=== PATIENT | female | born 1985 | race Caucasian/White ===

== ENCOUNTER 2023-04-30 16:28 | Emergency (ER) | payer BC, SELFPAY ==
[2023-04-30 16:50] VITALS: BP 144/89; PULSE 79; RESP 18; TEMP 36.8; O2SAT 100
--- NOTE | 2023-04-30 17:00 | ED.SKABFB ---
HPI - Skin/Abscess/Foreign Bdy General Chief complaint: Animal Bite Stated complaint: animal bite Source: patient and RN notes reviewed History of Present Illness HPI narrative: 37 yr old F presents to urgent care with cat bites to her right FA. Pt states she has been feeding a stray cat for about a year now and just recently has allowed her to pet it. Pt states she was petting it on Sunday morning when the cat bit her. Pt presents with 2 superficial puncture wounds to right FA and another puncture wound that is surrounded with erythema to her right FA. Pt reports some tightness to her distal FA. Denies any fevers, chills, vomiting, chest pain, SOB, or drainage from the site. Pt is UTD on her tetanus. Pt has been putting Neosporin on the site at nighttime. Related Data Home Medications Medication Instructions Recorded Confirmed clonazepam 0.5 mg tablet 0.5 mg BID 06/18/19 04/30/23 rizatriptan 5 mg tablet 5 mg PO PRN PRN Migraine Headache 06/18/19 04/30/23 Allergies Allergy/AdvReac Type Severity Reaction Status Date / Time amoxicillin [From Augmentin] Allergy Rash Verified 04/30/23 16:55 clavulanic acid Allergy Rash Verified 04/30/23 16:55 [From Augmentin] Review of Systems Review of Systems: CONSTITUTIONAL: Denies fever, chills, or sweats. EYES: Denies visual changes, redness, or discharge. ENT: Denies otalgia and sore throat CARDIOVASCULAR: Denies chest pain, palpitations, or edema. RESPIRATORY: Denies cough or dyspnea. GASTROINTESTINAL: Denies abdominal pain, nausea, vomiting, or diarrhea. GENITOURINARY: Denies dysuria or hematuria. SKIN: Cat bites to right forearm MUSCULOSKELETAL: Denies back pain, joint pain, or myalgia. NEUROLOGIC: Denies headache, numbness, or weakness. Pertinent positives per HPI. PMFSH Social History Social History Gender identity (if verbalized by the patient): Female Comments At the time of my signature, I reviewed and agree with the nursing past medical, surgical, social, and family history. There is no relevant family history pertinent to the patient complaint. Exam Narrative: GENERAL: This is a well-nourished, well-developed patient, in no apparent distress. HEAD: normocephalic, atraumatic. EYES: Sclera clear/white. Vision is grossly intact. EARS: External ears normal, auditory canals clear and without drainage. Hearing grossly intact. NOSE: External nose normal with no obvious nasal discharge, nares without redness, no rhinorrhea. NECK: Neck supple, non-tender without lymphadenopathy, masses or thyromegaly. CARDIOVASCULAR: Regular rate and rhythm without murmurs, gallops, or rubs. RESPIRATORY: No respiratory distress SKIN:area of 3 cm erythema with middle white dot to right FA, with 2 other superficial puncture wounds to right FA NEURO: awake, alert, and oriented to person, place and time. There were no obvious focal neurologic abnormalities. EXTREMITIES: No clubbing, cyanosis, or edema. No joint tenderness, effusion, or edema noted. BACK: Nontender without deformity or crepitus. No flank tenderness. Course Course Level of Care: Express Care Visit Vital Signs Vital signs: Vital Signs Temperature 98.2 F 04/30/23 16:50 Pulse Rate 79 04/30/23 16:50 Respiratory Rate 18 04/30/23 16:50 Blood Pressure 144/89 H 04/30/23 16:50 Pulse Oximetry 100 04/30/23 16:50 Oxygen Delivery Room Air 04/30/23 16:50 Temperature 98.2 F 04/30/23 16:50 Pulse Rate 79 04/30/23 16:50 Respiratory Rate 18 04/30/23 16:50 Blood Pressure 144/89 H 04/30/23 16:50 Pulse Oximetry 100 04/30/23 16:50 Oxygen Delivery Room Air 04/30/23 16:50 reviewed MDM - Skin/Abscess/Foreign Bdy MDM Narrative Medical decision making narrative: Take the antibiotics as directed. Stop the antibiotics if you develop any hives, itching, vomiting, or trouble breathing. Be seen by a medical provider if these symptoms occur. Go to the ER with any increased redne
== END 2023-04-30 17:05 | disposition home or self-care (01) ==
PROVIDERS: Emergency Provider Nurse Practitioner Family
DX: S51.851A Open bite of right forearm, initial encounter (principal); Z79.899 Other long term (current) drug therapy; W55.01XA Bitten by cat, initial encounter
CPT/HCPCS: 99213; G0463

== ENCOUNTER 2024-09-18 16:27 | Emergency (ER) | payer BC, SELFPAY ==
--- NOTE | ~2024-09-18 | CT_ITS ---
CLINICAL INDICATION: Lower abdominal pain COMPARISON: None. TECHNIQUE: Multiple contiguous axial images of the abdomen and pelvis were performed following the ad ministration of with 100 mL Omnipaque-350 intravenous contrast The dose-length product (DLP) was 266.94 mGy-cm. Automated exposure control and iterative reconstruction technique were employed. FINDINGS/OBSERVATIONS: Visualized lower thorax: The bilateral lung bases are clear. The heart is of normal size, without pericardial effusion. Small hiatal hernia is present. Liver: The liver enhances homogeneously and is not enlarged measuring 18 cm in longitudinal dimension. Gallbladder and biliary system: The gallbladder is distended, and otherwise unremarkable. Pancreas: The pancreas enhances homogeneously without ductal dilatation. Spleen: The spleen enhances homogeneously and is not enlarged measuring 8 cm in longitudinal dimension. Kidneys: The bilateral kidneys enhance symmetrically without hydronephrosis or renal calculi. Adrenal glands: Unremarkable. Gastrointestinal tract: Mural thickening with surrounding inflammatory change is identified within the descending/proximal si gmoid colon with multiple diverticula, findings suggesting acute/early diverticulitis for which clini mark correlation is needed. No drainable fluid collection is identified. No gross perforation is noted. Fecal stasis within the remaining loops of nondilated colon. Appendix: The air-filled appendix is of normal caliber (axial series, images 120 138) Vasculature: Unremarkable. Lymph nodes: No pathologically enlarged or morphologically suspicious lymph nodes within the retroperitoneum or at the root of the mesentery. Pelvic structures: The bladder is distended, and otherwise unremarkable. The uterus is anteverted and anteflexed. Bilateral ovaries are age-appropriate. Body wall and musculoskeletal: No significant degenerative disease within the lower thoracic or lumbosacral spine. IMPRESSION: Findings within the distal descending/proximal sigmoid colon suggesting acute/early diverticulitis. Follow-up to resolution is recommended as a malignancy may have a similar appearance. Reviewed, dictated and finalized at location A. [place] MARKETING MANAGER IMPRESSION: Findings within the distal descending/proximal sigmoid colon suggesting acute/e liliana diverticulitis. Follow-up to resolution is recommended as a malignancy may have a similar appe arance.
--- OUTSIDE RECORDS SUMMARY | 2024-09-18 16:31 | XMS_ITS | Encounter Summary ---
Author Organization [facility] Address [facility] [place] [address] Care Team Providers Care Digital Strategy Manager Name Role Phone Abigail Houston MD Primary Care Provider [phone] Fe Wright APRN Primary Care Provider [phone] Nicolette Mcduffie PA-C Primary Care Provider [phone] Encounter Details Date Type Department Care Team (Late st Contact Info) Description 09/05/2020 [email or web address] Message Enc [facility] Medical Group Family & Internal Medicine [facility] [address] [place] [address] Germaine Cristina, PARIMUTUEL TICKET CASHIER [address] [id number] RE: Test Results Social History Tobacco Use Types Packs/Day Years Used Date Smoking Tobacco: Never Smokeless Tobacco: Never Alcohol Use Standard Drinks/Week Comments Yes 0 (1 standard drink = 0.6 oz pur e alcohol) rarely PHQ-2 Answer Date Recorded PHQ-2 Score 0 11/04/2018 Education Answer Date Recorded What is the highest level of school you have completed or the highest degree you have received? 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 No / Unsure 08/23/2020 12:21 PM LINK TRAINER OPERATOR documented as of this encounter Plan of Treatment Upcoming Encounters Date Type Department Care Team (Late st Contact Info) Description 09/23/2024 12:40 PM LINK TRAINER OPERATOR Office Visit [facility] Medical Group Family Medicine - [place] [address] [facility] [address] [place], [place] [address] Elise Pemberton, JABIER [address] [place] [address] documented as of this encounter Visit Diagnoses Not on filedocumented in this encounter Additional Health Concerns Infection Onset Date Last Indicated Resolved Time COVID-19 Rule Out 08/02/2022 08/02/2022 08/02/2022 9:50 AM LINK TRAINER OPERATOR COVID-19 Confirmed 08/02/2022 08/02/2022 12:32 AM LINK TRAINER OPERATOR Assessment Noted Time PHQ-9 Depression Total Score: 0 12/19/19 19 3:40 PM CDT documented as of this encounter Care Teams Digital Strategy Manager Relationship Specialty Start Date End Date Abigail Houston MD PCP - General INTERNAL MEDICINE 08/19/18 12/03/22 Fe Wright APRN [address] [place], [place] [id number] PCP - General NURSE PRACTITIONER 12/04/22 01/23/23 Nicolette Mcduffie PA-C [address] [place], [place] [id number] PCP - General PHYSICIAN GRADE SCHOOL TEACHER 01/24/23 09/22/24 documented as of this encounter
--- OUTSIDE RECORDS SUMMARY | 2024-09-18 16:31 | XMS_ITS | Clinical Summary ---
Author Organization [facility] Address [facility] [place] [address] Care Team Providers Care Student Services Dean Name Role Phone Nicolette Mcduffie PA-C Primary Care Provider [phone] Allergies Active Allergy Reactions Criticality Noted Date Comments Amoxicillin-Pot Clavulanate Swelling Low 07/01/20 14 Medications tiZANidine (ZANAFLEX) 2 MG tabletIndication s:Masseter spasm Take 1 tablet (2 mg total) by mouth every 6 (six) hours as needed. 60 tablet 5 3 Active desogestrel-ethi nyl estradiol (VIORELE) 0.15-0.02/0.01 MG (24/12) tabletIndication s:Dysmenorrhea Take 1 tablet by mouth daily. 84 tablet 3 Active rizatriptan (MAXALT) 5 MG tabletIndication s:Intractable migraine with aura without status migrainosus Take 1 tablet (5 mg total) by mouth as needed for Migraine. May repeat in 2 hours if needed times one dose 9 tablet 11 3 Active clonazePAM (KLONOPIN) 0.5 MG tabletIndication s:Anxiety TAKE 1/2 TO 1 TABLET(0.25 TO 0.5 MG) BY MOUTH TWICE DAILY NEEDED 60 tablet 4 Active fluconazole (DIFLUCAN) 150 MG tablet 4 Active albuterol sulfate HFA 108 (90 Base) MCG/ACT inhalerIndicatio ns:Acute cough inhale 2 puffs by mouth every 6 hours as needed for wheezing 8.5 g 4 Active Active Problems Problem Noted Date Diagnosed Date Enlarged lymph node in neck 09/04/2019 Lymphadenopathy of head and neck region 08/26/19 20 Neck pain 08/20/2019 Lump in neck 08/20/2019 Pain in a tooth or teeth 08/20/2019 Flu-like symptoms 09/18/2018 Cough 09/18/2018 Sinusitis, unspecified chronicity, unspecified l ocation 09/18/2018 Candidiasis 09/18/2018 Acute pharyngitis, unspecified etiology 09/09/19 19 Assessment & Plan (09/09/2018 4:17 PM JIGSAWYER): Given severity of symptoms and preceding URI symptoms that resolved then suddenly worsened will treat for strep. Although did rec waiting 24-48 hours to see if any improvement off abx Candidiasis, vagina 12/11/2017 Anxiety 04/11/2016 Migraine headache 11/08/2015 Asthma ([facility]) 04/14/2014 Dysmenorrhea 04/14/2013 Immunizations Name Administration Dates Next Due DT (Generic) 10/26/2012 Dt (1-<7 Y.O.) 10/26/2012 Influenza Adult (Generic) 05/23/2018,05/23/2016 Tdap (Adacel) 01/25/2023 Family History Medical History Relation Comments Cancer Paternal Grandfather None Neg Hx Relation Status Comments Father Alive Mother Alive Paternal Grandfather Social History Tobacco Use Types Packs/Day Years Used Date Smoking Tobacco: Never Smokeless Tobacco: Never Tobacco Cessation:Counseling Given: Not Answered Alcohol Use Standard Drinks/Week Comments Yes 0 (1 standard drink = 0.6 oz pur e alcohol) once every few months PHQ-2 Answer Date Recorded Patient Health Questionnaire-2 Score 0 01/09/2024 Education Answer Date Recorded What is the [...] 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 Not on file Not on file Last Filed Vital Signs Vital Sign Reading Time Taken Comments Blood Pressure 135/83 02/08/2024 10:42 AM CDT Pulse 85 02/08/2024 10:41 AM CDT Temperature 36.6 C (97.8 F) 02/08/2024 10:41 AM CDT Respiratory Rate 14 02/08/2024 10:41 AM CDT Oxygen Saturation 98% 02/08/2024 10:41 AM CDT Inhaled Oxygen Concentration - - Weight 61.7 kg (136 lb) 02/08/2024 10:41 AM CDT Height 157.5 cm (5' 2 ) 02/08/2024 10:41 AM CDT Body Mass Index 24.87 02/08/2024 10:41 AM CDT Plan of Treatment Upcoming Encounters Date Type Department Care Team (Late st Contact Info) Description 09/23/2024 12:40 PM JIGSAWYER Office Visit [facility] Medical Group Family Medicine [facility] [address] [facility] [address] [place] [address] Elise Pemberton, ANGLE BENDER [address] [place] [address] Health Maintenance Due Date Last Done Comments Pneumococcal Vaccine: Pediatrics (0 to 5 Years) and At-Risk Patients (6 to 64 Years) (1 of 2 - PCV) 1993 Hepatitis C 2005 Hepatitis B Vaccines (1 of 3 - 19+ 3-dose series) 2006 Cervical Cancer Screening Pa p with HPV Testing (Age 30 to 64) Every 5 Years 2017 Annual Physical 01/24/2023 01/24/2022, 01/19/2021, 08/21/2018 COVID-19 Vaccine (2023-2 5 season) 2024 Influenza Adult (#1) 2024 05/23/2018, 05/23/2016 PHQ-2 (Physician [place]) 08/06/2024 01/09/2024 Cervical Cancer Screening Pa p Smear (Age 30 to 64) Every 3 Years 01/24/2025 01/24/2022, 08/21/2018 Cervical Cancer Screening wi th HPV 01/24/2025 DTaP, Tdap and Td Vaccines ( 2 - Td or Tdap) 01/25/2033 01/25/2023, 10/26/2012, 10/26/2012 HPV Vaccines Aged Out No longer eligi ble based on patient's age to complete this topic Meningococcal B Vaccine Aged Out No l onger eligible based on patient's age to complete this topic Meningococcal Vaccine Aged Out No braxton riccardo eligible based on patient's age to complete this topic RSV Immunizations Under 20 Months Aged Out No longer eligible b ased on patient's age to complete this topic Procedures Procedure Name Priority Date/Time Associated Diagnosis Comments CYTOPATH CERV/VAG THIN LAYER Routine 01/24/2022 9:03 AM CDT Visit for routine therapeutic radiologist exam from Last 3 Months or Most Recently Relevant to Health Maintenance Results * Cytopath Cerv/Vag Thin Layer (01/24/2022 9:03 AM CDT) CLINICAL INFORMATION: Information not provided [facility] Clinical Information: UNKNOWN [facility] Date of Last Pap INFORMATION NOT PROVIDED [facility] Previous Biopsy? INFORMATION NOT PROVIDED [facility] SOURCE (QST) Cervix, Endocervix [facility] STATEMENT OF ADEQUACY: [facility] Comment: Satisfactory for evaluation. Endocervical/transformation zone component present. Age and/or menstrual status not provided PAP INTERPRETATION/RESU LTS Negative for intraepithelial lesion or malignancy. [facility] FLOOR COVERING CONTRACTOR [facility] Comment: KMCARLIE Price(ASCP) CT Screening location: [place] [address] [place] [id number] COMMENT: [facility] Comment: EXPLANATORY NOTE: The Pap is a screening test for cervical cancer. It is not a diagnostic test and is subject to false negative and false positive results. It is most reliable when a satisfactory sample, regularly obtained, is submitted with relevant clinical findings and history, and when the Pap result is evaluated along with historic and current clinical information. 01/24/2022 9:03 AM CDT 01/25/2022 12:43 AM CDT us Abigail Houston MD PATHOLOGY/CYTOLOGY ORDERABLE S Final Result [facility] [address] [place] [id number] from Last 3 Months or Most Recently Relevant to Health Maintenance Insurance [facility] Care Teams Student Services Dean Relationship Specialty Start Date End Date Nicolette Mcduffie PA-C [address] [facility] [address] [place] [address] PCP - General PHYSICIAN INSULATION WORKER FURNACE INSTALLER 01/24/23 09/22/24
--- OUTSIDE RECORDS SUMMARY | 2024-09-18 16:31 | XMS_ITS | Encounter Summary ---
Author Organization [facility] Address [facility] [place] [address] Care Team Providers Care Dry Yard Worker Name Role Phone Abigail Houston MD Primary Care Provider [phone] Fe Wright APRN Primary Care Provider [phone] Nicolette Mcduffie PA-C Primary Care Provider [phone] Encounter Details Date Type Department Care Team (Late st Contact Info) Description 07/11/2022 [email or web address] Message Enc [facility] Medical Group Family & Internal Medicine [facility] [address] [place] [address] Abigail Houston MD [address] [place] [address] Cold Social History Tobacco Use Types Packs/Day Years Used Date Smoking Tobacco: Never Smokeless Tobacco: Never Alcohol Use Standard Drinks/Week Comments Yes 0 (1 standard drink = 0.6 oz pur e alcohol) rarely PHQ-2 Answer Date Recorded PHQ-2 Score - If the patient scores above 3, please move on to questions 3-9 0 01/24/2022 Education Answer Date Recorded What is the [...] 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 No / Unsure 07/12/2022 7:05 AM LABORATORY CHEMICAL ASSISTANT documented as of this encounter Plan of Treatment Upcoming Encounters Date Type Department Care Team (Late st Contact Info) Description 09/23/2024 12:40 PM LABORATORY CHEMICAL ASSISTANT Office Visit [facility] Medical Group Family Medicine - [place] [address] [facility] [address] [place], [place] [address] Elise Pemberton, JABIER [address] [place] [address] documented as of this encounter Visit Diagnoses Not on filedocumented in this encounter Additional Health Concerns Infection Onset Date Last Indicated Resolved Time COVID-19 Rule Out 08/02/2022 08/02/2022 08/02/2022 9:50 AM LABORATORY CHEMICAL ASSISTANT COVID-19 Confirmed 08/02/2022 08/02/2022 12:32 AM LABORATORY CHEMICAL ASSISTANT Assessment Noted Time PHQ-9 Depression Total Score: 0 01/25/20 22 8:02 AM CDT documented as of this encounter Care Teams Dry Yard Worker Relationship Specialty Start Date End Date Abigail Houston MD PCP - General INTERNAL MEDICINE 08/19/18 12/03/22 Fe Wright APRN [email or web address] [place] [address] PCP - General NURSE PRACTITIONER 12/04/22 01/23/23 Nicolette Mcduffie PA-C [address] [place] [address] PCP - General PHYSICIAN MANAGER CONTROL 01/24/23 09/22/24 documented as of this encounter
--- OUTSIDE RECORDS SUMMARY | 2024-09-18 16:31 | XMS_ITS | Clinical Summary ---
Author Organization [facility] [address] [address] Care Team Providers Care Page Makeup System Operator Name Role Phone Nicolette Mcduffie Primary Care Provider [phone] Allergies Active Allergy Reactions Criticality Noted Date Comments Amoxicillin-Pot Clavulanate Rash Medium 03/28/20 23 Medications albuterol (PROAIR RESPICLICK) 90 mcg/actuation inhaler Inhale 2 puffs as needed for wheezing Active rizatriptan BUILDING CARPENTER HELPER (MAXALT-BUILDING CARPENTER HELPER) 5 mg disintegrating tabletIndications:M igraine Take 1 tablet (5 mg total) by mouth as needed for migraine May repeat in 2 hours if unresolved. Do not exceed 30 mg in 24 hours. Active desog-e.estradioL/e .estradioL (KARIVA) 0.15-0.02 mgx21 /0.01 mg x 5 per tablet Take 1 tablet by mouth daily Active clonazePAM (KlonoPIN) 0.125 mg disintegrating tablet Take 1 tablet (0.125 mg total) by mouth daily as needed for seizures Active Active Problems Problem Noted Date Diagnosed Date Chronic pansinusitis 03/31/2023 Assessment & Plan (03/31/2023 5:33 PM CDT): Given her ongoing symptoms I think a sinus CT scan is warranted. We talked about that and she would like to go ahead and pursue it. If it is negative I may be recommending a neurology referral. She understands. Facial pain 03/31/2023 Assessment & Plan (03/31/2023 5:36 PM CDT): I think she probably is suffering from some type of neuropathic pain. She did have some improvement with gabapentin but understandably does not want to take any medication that is going to make her feel sedated or loopy. I did not recommend going through any type of dental extractions especially if even her dental consultants are not sure that it will help with this pain. She understands that. Unfortunately I do not really have any better recommendations for medical treatment of this. Again may be recommending a neurology referral. Social History Tobacco Use Types Packs/Day Years Used Date Smoking Tobacco: Never Tobacco Cessation:Counseling Given: Not Answered Personal Safety Answer Date Recorded Getting School Help Needed Not on file 09/20 Comments Unknown Sex and Gender Information Value Date Recorded Sex Assigned at Not on file Legal Sex Female 1:37 PM CDT Gender Identity Female 05/24/2024 7:22 AM CDT Sexual Orientation Straight 05/24/2024 7: 22 AM CDT Obstetrics History Last Filed Vital Signs Vital Sign Reading Time Taken Comments Blood Pressure 122/87 03/10/2024 2:49 PM CDT Pulse 60 03/10/2024 2:49 PM CDT Temperature - - Respiratory Rate 18 03/28/2023 3:56 PM CDT Oxygen Saturation - - Inhaled Oxygen Concentration - - Weight 57.2 kg (126 lb) 03/10/2024 2:49 PM CDT Height 157.5 cm (5' 2 ) 03/10/2024 2:49 PM CDT Body Mass Index 23.05 03/10/2024 2:49 PM CDT Plan of Treatment Health Maintenance Due Date Last Done Comments Depression Screening 1987 Hepatitis C Screening 1987 Pneumococcal vaccine <65 (1 of 2 - PCV) 1993 Varicella Vaccines (1 of 2 - 13+ 2-dose series) 2000 Hepatitis B Screening 2005 Regular Well Visit/Exam 18-64 2005 Cervical Cancer Screening 01/24/2023 01/24/2022 Influenza Vaccine (#1) 2024 8, 05/23/2016 DTaP/Tdap/Td Vaccine (3 - Td or Tdap) 01/25/2033 01/25/2023, 10/26/2012 HPV Vaccines Aged Out No longer eligi ble based on patient's age to complete this topic Insurance [employer] ACCESS OOS [employer] OOS Care Teams Page Makeup System Operator Relationship Specialty Start [place] [address] [facility] [address] [place] [address] PCP - General Physician Merry Go Round Operator 09/20/23
--- OUTSIDE RECORDS SUMMARY | 2024-09-18 16:31 | XMS_ITS | Encounter Summary ---
Author Organization [facility] Address [facility] [place] [address] Care Team Providers Care Body Line Finisher Name Role Phone Fe Wright APRN Primary Care Provider [phone] Nicolette Mcduffie PA-C Primary Care Provider [phone] Encounter Details Date Type Department Care Team (Late st Contact Info) Description 12/05/2022 [employer]a [employer] Message Enc [facility] Medical Group Family & Internal Medicine [facility] [address] [place] [address] Estefanía, [facility] Provider Clonazepam Social History Tobacco Use Types Packs/Day Years Used Date Smoking Tobacco: Never Smokeless Tobacco: Never Alcohol Use Standard Drinks/Week Comments Yes 0 (1 standard drink = 0.6 oz pur e alcohol) rarely PHQ-2 Answer Date Recorded Patient Health Questionnaire-2 Score 0 09/05/2022 Education Answer Date Recorded What is the [...] 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 Not on file Not on file documented as of this encounter Plan of Treatment Upcoming Encounters Date Type Department Care Team (Late st Contact Info) Description 09/23/2024 12:40 PM OFFSET PRINTER Office Visit [facility] Medical Group Family Medicine - [place] [address] [facility] [address] [place] [address] Elise Pemberton, BUS DRIVER [address] [place] [address] documented as of this encounter Visit Diagnoses Not on filedocumented in this encounter Additional Health Concerns Assessment Noted Time PHQ-9 Depression Total Score: 0 09/05/19 4:02 PM OFFSET PRINTER documented as of this encounter Care Teams Body Line Finisher Relationship Specialty Start Date End Date Fe Wright APRN [address] [place] [address] PCP - General NURSE PRACTITIONER 12/04/22 01/23/23 Nicolette Mcduffie PA-C [address] [place] [address] PCP - General PHYSICIAN MEDICAL RECORDS FIELD TECHNICIAN 01/24/23 09/22/24 documented as of this encounter
--- OUTSIDE RECORDS SUMMARY | 2024-09-18 16:31 | XMS_ITS | Encounter Summary ---
Author Organization [facility] Address [facility] [place] [address] Care Team Providers Care Aluminum Pourer Name Role Phone Abigail Houston MD Primary Care Provider [phone] Fe Wright APRN Primary Care Provider + [phone] Nicolette Mcduffie PA-C Primary Care Provider [phone] Encounter Details Date Type Department Care Team (Late st Contact Info) Description 11/29/2015 Abstract [facility] CONVERSION [address] [place], [place] [id number] , Generic Conversion, Social History Tobacco Use Types Packs/Day Years Used Date Smoking Tobacco: Never Assessed Comments Unknown Sex and Gender Information Value Date Recorded Sex Assigned at Not on file Legal Sex Female 8:25 PM CDT Gender Identity Not on file Sexual Orientation Not on file documented as of this encounter Plan of Treatment Upcoming Encounters Date Type Department Care Team (Late st Contact Info) Description 09/23/2024 12:40 PM CLIN APPLICATION SPECIALIST Office Visit [facility] Family Medicine - [place] [address] [facility] [address] [place] [id number] Elise Pemberton NP [address] [place] [address] documented as of this encounter Visit Diagnoses Not on filedocumented in this encounter Additional Health Concerns Infection Onset Date Last Indicated Resolved Time COVID-19 Rule Out 08/02/2022 08/02/2022 08/02/2022 9:50 AM CLIN APPLICATION SPECIALIST COVID-19 Confirmed 08/02/2022 08/02/2022 12:32 AM CLIN APPLICATION SPECIALIST documented as of this encounter Care Teams Aluminum Pourer Relationship Specialty Start Date End Date Abigail Houston MD PCP - General INTERNAL MEDICINE 08/19/18 12/03/22 Fe Wright APRN [address] [facility] [address] [place] [address] PCP - General NURSE PRACTITIONER 12/04/22 01/23/23 Nicolette Mcduffie PA-C [address] [facility] [address] [place] [address] PCP - General PHYSICIAN REHAB DIRECTOR OCCUPATIONAL THERAPIST 01/24/23 09/22/24 documented as of this encounter
--- OUTSIDE RECORDS SUMMARY | 2024-09-18 16:31 | XMS_ITS | Encounter Summary ---
Author Organization [facility] Address [facility] [place] [address] Care Team Providers Care Rental Manager Name Role Phone Nicolette Mcduffie PA-C Primary Care Provider [phone] Encounter Details Date Type Department Care Team (Late st Contact Info) Description 01/30/2023 [email or web address] Message Enc [facility] Medical Group Family & Internal Medicine [facility] [address] [place] [address] Nicolette Mcduffie PA-C [id number] [place] [address] Clonazepam Social History Tobacco Use Types Packs/Day Years Used Date Smoking Tobacco: Never Smokeless Tobacco: Never Alcohol Use Standard Drinks/Week Comments Yes 0 (1 standard drink = 0.6 oz pur e alcohol) rarely PHQ-2 Answer Date Recorded Patient Health Questionnaire-2 Score 0 01/25/2023 Education Answer Date Recorded What is the [...] 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 Is there a way to guarantee she will get a UDS when she comes it next? That is the other option. * Mara Cummins RN - 01/30/2023 12:40 PM CDT It does appear there was one done in August. Do you want another one? * Nicolette Mcduffie PA-C - 01/30/2023 12:14 PM CDT I do not see evidence of a urine drug screen. Please see if this can be ordered. I will send a refill in for 30 days, but she will need to submit urine drug screen. Thank you! * Mara Cummins RN - 01/30/2023 12:10 PM CDT Needs to be sent in under new provider name documented in this encounter Plan of Treatment Upcoming Encounters Date Type Department Care Team (Late st Contact Info) Description 09/23/2024 12:40 PM OFFSET LITHOGRAPHIC PRESS OPERATOR Office Visit [facility] Medical Group Family Medicine - [place] [address] [facility] [address] [place] [address] Elise Pemberton, JABIER [address] [place] [address] documented as of this encounter Visit Diagnoses Diagnosis Anxiety Anxiety state, unspecified documented in this encounter Additional Health Concerns Assessment Noted Time PHQ-9 Depression Total Score: 0 09/05/19 23 4:02 PM OFFSET LITHOGRAPHIC PRESS OPERATOR documented as of this encounter Care Teams Rental Manager Relationship Specialty Start Date End Date Nicolette Mcduffie PA-C [address] [facility] [address] [place] [phone] PCP - General PHYSICIAN TRUCK SERVICE TECHNICIAN 01/24/23 09/22/24 documented as of this encounter
--- OUTSIDE RECORDS SUMMARY | 2024-09-18 16:31 | XMS_ITS | Encounter Summary ---
Author Organization [facility] Address [facility] [place] [address] Care Team Providers Care Director Corporate Communications Name Role Phone Abigail Houston MD Primary Care Provider [phone] Fe Wright APRN Primary Care Provider [phone] Nicolette Mcduffie PA-C Primary Care Provider [phone] Encounter Details Date Type Department Care Team (Late st Contact Info) Description 12/10/2021 [employer]WithMet Message Enc [facility] Medical Group Family & Internal Medicine [facility] [address] [place] [address] Kaylen Billings, INSURANCE SALES PROFESSIONAL Control Refill - Viorelle Social History Tobacco Use Types Packs/Day Years [...] 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 Not on file Not on file documented as of this encounter Plan of Treatment Upcoming Encounters Date Type Department Care Team (Late st Contact Info) Description 09/23/2024 12:40 PM PUBLIC HEALTH AIDE Office Visit [facility] Medical [facility] Family Medicine - [place] [address] [facility] [address] [place] [address] Elise Pemberton, INSURANCE SALES PROFESSIONAL [address] [place], [place] [address] documented as of this encounter Visit Diagnoses Not on filedocumented in this encounter Additional Health Concerns Infection Onset Date Last Indicated Resolved Time COVID-19 Rule Out 08/02/2022 08/02/2022 08/02/2022 9:50 AM PUBLIC HEALTH AIDE COVID-19 Confirmed 08/02/2022 08/02/2022 12:32 AM PUBLIC HEALTH AIDE Assessment Noted Time PHQ-9 Depression Total Score: 0 12/19/19 3:40 PM CDT documented as of this encounter Care Teams Director Corporate Communications Relationship Specialty Start Date End Date Abigail Houston MD PCP - General INTERNAL MEDICINE 08/19/18 12/03/22 Fe Wright APRN [address] [place] [address] PCP - General NURSE PRACTITIONER 12/04/22 01/23/23 Nicolette Mcduffie PA-C [address] [place] [address] PCP - General PHYSICIAN TOP STEEP TENDER 01/24/23 09/22/24 documented as of this encounter
--- OUTSIDE RECORDS SUMMARY | 2024-09-18 16:31 | XMS_ITS | Encounter Summary ---
Author Organization [facility] Address [facility] [place] [address] Care Team Providers Care Sharepoint Analyst Name Role Phone Abigail Houston MD Primary Care Provider [phone] Fe Wright APRN Primary Care Provider [phone] Nicolette Mcduffie PA-C Primary Care Provider [phone] Encounter Details Date Type Department Care Team (Late st Contact Info) Description 12/10/2021 [email or web address] Message Enc [facility] Medical Group Family & Internal Medicine [facility] [address] [place] [address] Abigail Houston MD [address] [place] [address] control refill Social History Tobacco Use Types Packs/Day Years [...] 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 Not on file Not on file documented as of this encounter Plan of Treatment Upcoming Encounters Date Type Department Care Team (Late st Contact Info) Description 09/23/2024 12:40 PM DIRECTOR EMERGENCY DEPARTMENT Office Visit [facility] Family Medicine - [place] [address] [facility] [address] [place] [address] Elise Pemberton, WATER SERVICE DISPATCHER [address] [place] [address] documented as of this encounter Visit Diagnoses Not on filedocumented in this encounter Additional Health Concerns Infection Onset Date Last Indicated Resolved Time COVID-19 Rule Out 08/02/2022 08/02/2022 08/02/2022 9:50 AM DIRECTOR EMERGENCY DEPARTMENT COVID-19 Confirmed 08/02/2022 08/02/2022 12:32 AM DIRECTOR EMERGENCY DEPARTMENT Assessment Noted Time PHQ-9 Depression Total Score: 0 12/19/19 19 3:40 PM CDT documented as of this encounter Care Teams Sharepoint Analyst Relationship Specialty Start Date End Date Abigail Houston MD PCP - General INTERNAL MEDICINE 08/19/18 12/03/22 Fe Wright APRN [address] [place] [address] PCP - General NURSE PRACTITIONER 12/04/22 01/23/23 Nicolette Mcduffie PARoseC [address] [place] [address] PCP - General PHYSICIAN WATER TESTER 01/24/23 09/22/24 documented as of this encounter
--- OUTSIDE RECORDS SUMMARY | 2024-09-18 16:31 | XMS_ITS | Encounter Summary ---
Author Organization [facility] Address [facility], [address] [place] [address] Care Team Providers Care Engineering Surveyor Name Role Phone Abigail Houston MD Primary Care Provider [phone] Fe Wright APRN Primary Care Provider [phone] Nicolette Mcduffie PA-C Primary Care Provider [phone] Encounter Details Date Type Department Care Team (Late st Contact Info) Description 08/07/2022 Evryx Technologiest Message Enc [facility] Medical Group Family & Internal Medicine [facility] [place] [facility] [address] [place] [address] Abigail Houston MD [address] [place] [address] [place] Social History Tobacco Use Types Packs/Day Years [...] 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 Yes 08/02/2022 9:15 AM AIRCRAFT LIFE SUPPORT FITTER documented as of this encounter Plan of Treatment Upcoming Encounters Date Type Department Care Team (Late st Contact Info) Description 09/23/2024 12:40 PM AIRCRAFT LIFE SUPPORT FITTER Office Visit [facility] Family Medicine - [place] [address] [facility] [address] [place], [place] [address] Elise Pemberton, STAYING MACHINE OPERATOR [address] [place] [address] documented as of this encounter Visit Diagnoses Not on filedocumented in this encounter Additional Health Concerns Infection Onset Date Last Indicated Resolved Time COVID-19 Confirmed 08/02/2022 08/02/2022 12:32 AM AIRCRAFT LIFE SUPPORT FITTER Assessment Noted Time PHQ-9 Depression Total Score: 0 01/25/20 22 8:02 AM CDT documented as of this encounter Care Teams Engineering Surveyor Relationship Specialty Start Date End Date Abigail Houston MD PCP - General INTERNAL MEDICINE 08/19/18 12/03/22 Fe Wright APRN [address] [place] [address] PCP - General NURSE PRACTITIONER 12/04/22 01/23/23 Nicolette Mcduffie PA-C [address] [place], [place] [id number] PCP - General PHYSICIAN SOLUTION DESIGNER 01/24/23 09/22/24 documented as of this encounter
--- OUTSIDE RECORDS SUMMARY | 2024-09-18 16:31 | XMS_ITS | Encounter Summary ---
Author Organization [facility] Address [address] [place] [address] Care Team Providers Care Access Service Representative Name Role Phone Abigail Houston MD Primary Care Provider [phone] Fe Wright APRN Primary Care Provider [phone] Nicolette Mcduffie PA-C Primary Care Provider Encounter Details Date Type Department Care Team (Late st Contact Info) Description 03/25/2022 Wellbet Message Enc [facility] Medical Group Family & Internal Medicine [address] [address] Kaylen Billings, JABIER UTI Social History Tobacco Use Types Packs/Day Years [...] 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 Not on file Not on file documented as of this encounter Plan of Treatment Upcoming Encounters Date Type Department Care Team (Late st Contact Info) Description 09/23/2024 12:40 PM BATTERY HAND Office Visit [facility] Medical Group Family Medicine - [place] [address] [facility] [address] [place] [address] Elise Pemberton, JABIER [address] [place] [address] documented as of this encounter Visit Diagnoses Not on filedocumented in this encounter Additional Health Concerns Infection Onset Date Last Indicated Resolved Time COVID-19 Rule Out 08/02/2022 08/02/2022 08/02/2022 9:50 AM BATTERY HAND COVID-19 Confirmed 08/02/2022 08/02/2022 12:32 AM BATTERY HAND Assessment Noted Time PHQ-9 Depression Total Score: 0 01/25/20 8:02 AM CDT documented as of this encounter Care Teams Access Service Representative Relationship Specialty Start Date End Date Abigail Houston MD PCP - General INTERNAL MEDICINE 08/19/18 12/03/22 Fe Wright APRN [address] [place] [address] PCP - General NURSE PRACTITIONER 12/04/22 01/23/23 Nicolette Mcduffie PA-C [address] [place], [place] [phone] PCP - General PHYSICIAN MANAGER PACU 01/24/23 09/22/24 documented as of this encounter
--- OUTSIDE RECORDS SUMMARY | 2024-09-18 16:31 | XMS_ITS | Referral Summary ---
Author Organization [facility] Address [address] [place] [address] Care Team Providers Care Medical Records Auditor Name Role Phone Nicolette Mcduffie Primary Care Provider [phone] Allergies Active Allergy Reactions Criticality Noted Date Comments Amoxicillin-Pot Clavulanate Rash Medium 03/28/20 23 Medications albuterol (PROAIR RESPICLICK) 90 mcg/actuation inhaler Inhale 2 puffs as needed for wheezing Active rizatriptan SNORKELLING INSTRUCTOR (MAXALT-SNORKELLING INSTRUCTOR) 5 mg disintegrating tabletIndications:M igraine Take 1 [...] Orientation Straight 05/24/2024 7: 22 AM CDT Last Filed Vital Signs Vital Sign Reading [...] 03/10/2024 2:49 PM CDT Plan of Treatment Not on file Insurance [employer]Booking OOS FastBooking OOS Care Teams Medical Records Auditor Relationship Specialty Start [place] [address] [facility] [address] [place] [phone] PCP - General Physician Electrocardiograph Repairer 09/20/23
--- OUTSIDE RECORDS SUMMARY | 2024-09-18 16:31 | XMS_ITS | Encounter Summary ---
Author Organization [facility] Address [facility] [place] [address] Care Team Providers Care Garden Tractor Mechanic Name Role Phone Nicolette Mcduffie PA-C Primary Care Provider [phone] Encounter Details Date Type Department Care Team (Late st Contact Info) Description 01/31/2023 MyChart Message Enc [facility] [address] [place], [place] [phone] [employer], 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 Not on file Not on file Not on file documented as of this encounter Plan of Treatment Upcoming Encounters Date Type Department Care Team (Late Contact Info) Description 09/23/2024 12:40 PM DENTAL OFFICE ASSISTANT Office Visit [facility] Family Medicine - [place] [address] [facility] [address] [place] [address] Elise Pemberton, JABIER [address] [place] [address] [place] [address] documented as of this encounter Visit Diagnoses Not on filedocumented in this encounter Additional Health Concerns Assessment Noted Time PHQ-9 Depression Total Score: 0 09/05/19 23 4:02 PM DENTAL OFFICE ASSISTANT documented as of this encounter Care Teams Garden Tractor Mechanic Relationship Specialty Start Date End Date Nicolette Mcduffie PA-C [address] [facility] [address] [place] [address] PCP - General PHYSICIAN REGISTERED RESPIRATORY THERAPIST 01/24/23 09/22/24 documented as of this encounter
[2024-09-18 17:35] LABS: BEDSIDEPREGUCG Negative (Negative)
[2024-09-18 17:39] LABS: Basophils Absolute Auto 0.1 K/mm3 (0.0-0.1); Basophils Percent Auto 0.5 % (0.2-1.2); Eosinophils Absolute Auto 0.1 K/mm3 (0-0.3); Hematocrit 41.2 % (37.0-47.0); Hemoglobin 13.7 g/dL (12.0-15.0); Immature Granulocyte Absolute 0.02 K/mm3 (0.00-0.031); Immature Granulocyte Percent A 0.2 % (0-0.5); Lymphocytes Absolute Auto 2.34 K/mm3 (0.9-3.2); Lymphocytes Percent Auto 22.7 % (18.3-44.2); Mean Corpuscular HGB Conc 33.3 g/dl (32-36); Mean Corpuscular Hemoglobin 31.2 pg (26-34); Mean Corpuscular Volume 93.8 fl (80-100); Mean Platelet Volume 9.1 fl (7.4-10.4); Monocytes Absolute Auto 0.9 K/mm3 (0.1-0.6); Monocytes Percent Auto 8.6 % (2.6-8.5); Neutrophils Absolute Auto 6.9 K/mm3 (1.3-6.7); Platelet Count Result 334 k/mm3 (150-375); Red Blood Count 4.39 M/mm3 (4.2-5.4); Red Cell Distribution Width 11.9 % (11.5-14.5); White Blood Count 10.3 K/mm3 (4.5-10.0)
[2024-09-18 17:40] VITALS: BP 109/74; PULSE 80; RESP 18; TEMP 36.6; O2SAT 100
[2024-09-18 17:42] LABS: Add Urine Microscopic? NO; Appearance Urine Clear (Clear); Bilirubin Urine Negative (Negative); Blood Urine Negative (Negative); Color Urine Yellow (Yellow); Glucose Urine UA Negative (Negative); Ketones Urine 1+ mg/dL (Negative); Leukocyte Esterase Ur Negative LEU/UL (Negative); Nitrate Urine Negative (Negative); Protein Urine Negative (Negative); Specific Grav Ur 1.021 (1.001-1.035); Urobilinogen Urine 0.2 mg/dL (<2.0)
[2024-09-18 17:49] LABS: Alanine Aminotransferase 44 U/L (6-35); Albumin Level 4.6 g/dL (3.5-5.1); Alkaline Phosphatase 87 U/L (38-126); Anion Gap 14 mmol/L (4-12); Aspartate Amino Transferase 31 U/L (14-36); Bilirubin,Total 0.7 mg/dL (0.2-1.3); Blood Urea Nitrogen 12 mg/dL (7-17); Calcium 9.3 mg/dL (8.4-10.2); Carbon Dioxide 24 mmol/L (22-30); Chloride 100 mmol/L (98-107); Estimated CRCL calculation 85 ml/min; Estimated Glomerular Filt Rate > 60; Glucose 97 mg/dL (65-110); Lipase 26 U/L (23-300); Potassium 3.9 mmol/L (3.4-5.0); Sodium 138 mmol/L (137-145)
--- NOTE | 2024-09-18 17:49 | ED_ITS ---
HPI - General Adult General Chief complaint: Abdominal Pain <Caitlyn Live December, ASSEMBLY INSTRUCTIONS WRITER - Last Filed: 09/18/24 17:52> Stated complaint: low abd pain since last night <Caitlyn Lvie December, - Last Filed: 09/18/24 17:52> Time Seen by Provider: 09/18/24 17:50 <Caitlyn Live December, - Last Filed: 09/18/24 17:52> Focused HPI: Christelle Epps is a 39 y/o female who presents with complaints of lower abdomianal pain that started 2 days ago, yesterday pain went to her left lower abdomen and radiates intemittently to the right lower side. She states she thought it was gas or constipation and took OTC medication and had normal BM's that did not help her pain / she couldn't eat today because of the pain. Denies nausea/ vomiting abdomen soft/ bowel sounds present /+ pain to the left lower quadrant GENERAL: Well-appearing, well-nourished, and in no acute distress. HEAD: Normocephalic, atraumatic. CHEST: Clear to auscultation. ?No respiratory distress. HEART: Regular rate and rhythm.? NEURO: ?Alert and oriented x3. Patient screened in triage and initial orders placed.? ?Additional care and disposition to be based upon?diagnostic testing and treatment. <Caitlyn Live December, - Last Filed: 09/18/24 17:52> History of Present Illness HPI narrative: Agree with HPI. Seven worsening pain yesterday after feeling ?constipated the day before. Pain improving today. No fevers chills or sweats. High discomfort in her abdomen with moving lower extremities. <Hamlet Wu MD - Last Filed: 09/18/24 20:31> Related Data Home medications: Home Medications ?Medication ?Instructions ?Recorded ?Confirmed ?Last Taken ?Type clonazepam 0.5 mg tablet 0.5 mg BID 06/18/19 04/30/23 06/18/19 History rizatriptan 5 mg tablet 5 mg PO PRN PRN Migraine Headache 06/18/19 04/30/23 Unknown History <Caitlyn Live December, ASSEMBLY INSTRUCTIONS WRITER - Last Filed: 09/18/24 17:52> Allergies/adverse reactions: Allergies Allergy/AdvReac Type Severity Reaction Status Date / Time amoxicillin (From Augmentin) Allergy Rash Verified 09/18/24 16:31 clavulanic acid (From Allergy Rash Verified 09/18/24 16:31 Augmentin) <Caitlyn Leggett ASSEMBLY INSTRUCTIONS WRITER - Last Filed: 09/18/24 17:52> Review of Systems 2 Review of Systems: All systems reviewed & are unremarkable except as noted in HPI and below <Hamlet Wu MD - Last Filed: 09/18/24 20:31> Constitutional: Constitutional: Reports no additional constitutional complaints <Hamlet Wu MD - Last Filed: 09/18/24 20:31> Cardiovascular: Cardiovascular: Reports no additional cardiovascular complaints <Hamlet Wu MD - Last Filed: 09/18/24 20:31> Respiratory: Respiratory: Reports no additional respiratory complaints < Hamlet Wu MD - Last Filed: 09/18/24 20:31> Gastrointestinal: Gastrointestinal: Reports no additional gastrointestinal complaints <Hamlet uW MD - Last Filed: 09/18/24 20:31> Integumentary/Breasts: Skin/Breast: Reports system reviewed and no additional complaints, except as docu <Hamlet Wu MD - Last Filed: 09/18/24 20:31> PMFSH Past Medical History Medical History: Medical History (Updated 09/18/24 @ 20:01 by Hamlet Wu MD) Anxiety Migraine <Caitlyn Leggett ASSEMBLY INSTRUCTIONS WRITER - Last Filed: 09/18/24 17:52> Surgical History Surgical History: Surgical History (Updated 09/18/24 @ 19:02 by Hamlet Wu MD) No history of previous surgery <Caitlyn Live December ASSEMBLY INSTRUCTIONS WRITER - Last Filed: 09/18/24 17:52> Social History Social History: Social History Gender identity (if verbalized by the patient): Female <Caitlyn Live December - Last Filed: 09/18/24 17:52> Exam 2 Narrative: GENERAL: Well-appearing, well-nourished, and in no acute distress. HEAD: Normocephalic, atraumatic. ENT: Mucous membranes moist. CHEST: Clear to auscultation. No respiratory distress. HEART: Regular rate and rhythm. Normal peripheral pulses. ABDOMEN: Soft, tender to palpation left lower quadrant with guarding, nondistended. EXTREMITIES: Normal range of motion. No edema. SKIN: Warm, dry, no rash. NEURO: Alert and oriented x3. PSYCH: Normal mood and affect. <Hamlet Wu MD - Last Filed: 09/18/24 20:31> Course Course Emergency Course: Patient educated on diagnosis and treatment plan. First dose of antibiotics given here as she will not be able pick them up until tomorrow. < Hamlet Wu MD - Last Filed: 09/18/24 20:31> Vital Signs Vital signs: Vital Signs Temperature 97.9 F 09/18/24 17:40 Pulse Rate 80 09/18/24 17:40 Respiratory Rate 18 09/18/24 17:40 Blood Pressure 109/74 09/18/24 17:40 Pulse Oximetry 100 09/18/24 17:40 Temperature 97.9 F 09/18/24 17:40 Pulse Rate 80 09/18/24 17:40 Respiratory Rate 18 09/18/24 17:40 Blood Pressure 109/74 09/18/24 17:40 Pulse Oximetry 100 09/18/24 17:40 <Caitlyn Leggett, ASSEMBLY INSTRUCTIONS WRITER - Last Filed: 09/18/24 17:52> Vital Signs Temperature 97.9 F 09/18/24 17:40 Pulse Rate 80 09/18/24 17:40 Respiratory Rate 18 09/18/24 17:40 Blood Pressure 109/74 09/18/24 17:40 Pulse Oximetry 100 09/18/24 17:40 Temperature 97.9 F 09/18/24 17:40 Pulse Rate 80 09/18/24 17:40 Respiratory Rate 18 09/18/24 17:40 Blood Pressure 109/74 09/18/24 17:40 Pulse Oximetry 100 09/18/24 17:40 <Hamlet Wu MD - Last Filed: 09/18/24 20:31> Medical Decision Making Vital Signs Vital Signs: Vital Signs Temperature 97.9 F 09/18/24 17:40 Pulse Rate 80 09/18/24 17:40 Respiratory Rate 18 09/18/24 17:40 Blood Pressure 109/74 09/18/24 17:40 Pulse Oximetry 100 09/18/24 17:40 Temperature 97.9 F 09/18/24 17:40 Pulse Rate 80 09/18/24 17:40 Respiratory Rate 18 09/18/24 17:40 Blood Pressure 109/74 09/18/24 17:40 Pulse Oximetry 100 09/18/24 17:40 <Caitlyn Leggett, ASSEMBLY INSTRUCTIONS WRITER - Last Filed: 09/18/24 17:52> Vital Signs Temperature 97.9 F 09/18/24 17:40 Pulse Rate 80 09/18/24 17:40 Respiratory Rate 18 09/18/24 17:40 Blood Pressure 109/74 09/18/24 17:40 Pulse Oximetry 100 09/18/24 17:40 Temperature 97.9 F 09/18/24 17:40 Pulse Rate 80 09/18/24 17:40 Respiratory Rate 18 09/18/24 17:40 Blood Pressure 109/74 09/18/24 17:40 Pulse Oximetry 100 09/18/24 17:40 <Hamlet Wu MD - Last Filed: 09/18/24 20:31> Lab Data Result diagrams: 09/18/24 17:33 09/18/24 17:33 <Caitlyn Leggett, ASSEMBLY INSTRUCTIONS WRITER - Last Filed: 09/18/24 17:52> Labs: Lab Results 09/18/24 09/18/24 Range/Units 17:32 17:33 WBC 10.3 H (4.5-10.0) K/mm3 RBC 4.39 (4.2-5.4) M/mm3 Hgb 13.7 (12.0-15.0) g/dL Hct 41.2 (37.0-47.0) % MCV 93.8 (80-100) fl MCH 31.2 (26-34) pg MCHC 33.3 (32-36) g/dl RDW 11.9 (11.5-14.5) % Plt Count 334 (150-375) k/mm3 MPV 9.1 (7.4-10.4) fl Immature Gran % (Auto) 0.2 (0-0.5) % Neut % (Auto) 67.0 (45.5-73.1) % Lymph % (Auto) 22.7 (18.3-44.2) % [place] % (Auto) 8.6 H (2.6-8.5) % Eos % (Auto) 1.0 (0-4.4) % Baso % (Auto) 0.5 (0.2-1.2) % Lymph # (Auto) 2.34 (0.9-3.2) K/mm3 [place] # (Auto) 0.9 H (0.1-0.6) K/mm3 Eos # (Auto) 0.1 (0-0.3) K/mm3 Baso # (Auto) 0.1 (0.0-0.1) K/mm3 Abs Immat Gran (auto) 0.02 (0.00-0.031) K/mm3 Absolute Neuts (auto) 6.9 H (1.3-6.7) K/mm3 Absolute Nucleated RBC 0.000 (0.0-0.012) K/mm3 Nucleated RBC % 0.0 (0.0-0.2) % Sodium 138 (137-145) mmol/L Potassium 3.9 (3.4-5.0) mmol/L Chloride 100 (98-107) mmol/L Carbon Dioxide 24 (22-30) mmol/L Anion Gap 14 H (4-12) mmol/L BUN 12 (7-17) mg/dL Creatinine 0.61 L (0.7-1.0) mg/dL Estim Creat Clear Calc 85 ml/min Estimated GFR > 60 (59 - ) Glucose 97 (65-110) mg/dL Calcium 9.3 (8.4-10.2) mg/dL Total Bilirubin 0.7 (0.2-1.3) mg/dL AST 31 (14-36) U/L ALT 44 H (6-35) U/L Alkaline Phosphatase 87 (38-126) U/L Total Protein 9.0 H (6.3-8.2) g/dL Albumin 4.6 (3.5-5.1) g/dL Lipase 26 (23-300) U/L Urine Color Yellow (Yellow) Urine Appearance Clear (Clear) Urine pH 5.0 (5.0-9.0) Ur Specific Hubert 1.021 (1.001-1.035) Urine Protein Negative (Negative) mg/dL Urine Glucose (UA) Negative (Negative) mg/dL Urine Ketones 1+ H (Negative) mg/dL Ur Blood (Man) Negative (Negative) Urine Nitrate Negative (Negative) Urine Bilirubin Negative (Negative) Urine Urobilinogen 0.2 (<2.0) mg/dL Leukocyte Esterase Rfl Negative (Negative) GUICHO/UL POC Urine HCG, Qual Negative (Negative) <Caitlyn Leggett, ASSEMBLY INSTRUCTIONS WRITER - Last Filed: 09/18/24 17:52> Lab Results 09/18/24 09/18/24 Range/Units 17:32 17:33 WBC 10.3 H (4.5-10.0) K/mm3 RBC 4.39 (4.2-5.4) M/mm3 Hgb 13.7 (12.0-15.0) g/dL Hct 41.2 (37.0-47.0) % MCV 93.8 (80-100) fl MCH 31.2 (26-34) pg MCHC 33.3 (32-36) g/dl RDW 11.9 (11.5-14.5) % Plt Count 334 (150-375) k/mm3 MPV 9.1 (7.4-10.4) fl Immature Gran % (Auto) 0.2 (0-0.5) % Neut % (Auto) 67.0 (45.5-73.1) % Lymph % (Auto) 22.7 (18.3-44.2) % [place] % (Auto) 8.6 H (2.6-8.5) % Eos % (Auto) 1.0 (0-4.4) % Baso % (Auto) 0.5 (0.2-1.2) % Lymph # (Auto) 2.34 (0.9-3.2) K/mm3 [place] # (Auto) 0.9 H (0.1-0.6) K/mm3 Eos # (Auto) 0.1 (0-0.3) K/mm3 Baso # (Auto) 0.1 (0.0-0.1) K/mm3 Abs Immat Gran (auto) 0.02 (0.00-0.031) K/mm3 Absolute Neuts (auto) 6.9 H (1.3-6.7) K/mm3 Absolute Nucleated RBC 0.000 (0.0-0.012) K/mm3 Nucleated RBC % 0.0 (0.0-0.2) % Sodium 138 (137-145) mmol/L Potassium 3.9 (3.4-5.0) mmol/L Chloride 100 (98-107) mmol/L Carbon Dioxide 24 (22-30) mmol/L Anion Gap 14 H (4-12) mmol/L BUN 12 (7-17) mg/dL Creatinine 0.61 L (0.7-1.0) mg/dL Estim Creat Clear Calc 85 ml/min Estimated GFR > 60 (59 - ) Glucose 97 (65-110) mg/dL Calcium 9.3 (8.4-10.2) mg/dL Total Bilirubin 0.7 (0.2-1.3) mg/dL AST 31 (14-36) U/L ALT 44 H (6-35) U/L Alkaline Phosphatase 87 (38-126) U/L Total Protein 9.0 H (6.3-8.2) g/dL Albumin 4.6 (3.5-5.1) g/dL Lipase 26 (23-300) U/L Urine Color Yellow (Yellow) Urine Appearance Clear (Clear) Urine pH 5.0 (5.0-9.0) Ur Specific Hubert 1.021 (1.001-1.035) Urine Protein Negative (Negative) mg/dL Urine Glucose (UA) Negative (Negative) mg/dL Urine Ketones 1+ H (Negative) mg/dL Ur Blood (Man) Negative (Negative) Urine Nitrate Negative (Negative) Urine Bilirubin Negative (Negative) Urine Urobilinogen 0.2 (<2.0) mg/dL Leukocyte Esterase Rfl Negative (Negative) GUICHO/UL POC Urine HCG, Qual Negative (Negative) <Hamlet Wu MD - Last Filed: 09/18/24 20:31> Imaging Data Radiologist's impression: ITS Impressions Abdomen/Pelvis CT 09/18/24 20:05 IMPRESSION: Findings within the distal descending/proximal sigmoid colon suggesting acute/early diverticulitis. Follow-up to resolution is recommended as a malignancy may have a similar appearance. <Hamlet Wu MD - Last Filed: 09/18/24 20:31> Discharge Plan Discharge Clinical Impression: Diverticulitis <Caitlyn Leggett APRN - Last Filed: 09/18/24 17:52> Patient Disposition: Home, Self-Care <Caitlyn Leggett APRN - Last Filed: 09/18/24 17:52> Condition: Stable <Caitlyn Live December, Last Filed: 09/18/24 17:52> Instructions: Antibiotic Form, Diverticulitis (ED) <Caitlyn Live December, Last Filed: 09/18/24 17:52> Additional Instructions: Return to the emergency department if you develop severe abdominal pain, severe nausea and vomiting to the point where you are unable to keep down fluids, if you develop chest pain or difficulty breathing, blood in your stool, dizziness or fainting, or if you develop any other new or concerning symptoms as these could be signs of more serious medical illness. Try to stay well hydrated. <Caitlyn Live December, Last Filed: 09/18/24 17:52> Patient Language: Faroese <Caitlyn Live December, Filed: 09/18/24 17:52> Prescriptions: New ciprofloxacin HCl 500 mg tablet 500 mg PO Q12H Qty: 14 0RF metronidazole 500 mg tablet 500 mg PO Q8H Qty: 21 0RF No Action clonazepam 0.5 mg tablet 0.5 mg BID rizatriptan 5 mg tablet 5 mg PO PRN PRN (Reason: Migraine Headache) amoxicillin-pot clavulanate 875-125 mg tablet 1 tablet PO Q12H 10 Days Qty: 20 0RF fluconazole [Diflucan] 150 mg tablet 150 mg PO ONCE Qty: 1 0RF Rx Instructions: as a single dose <Caitlyn Live December, Last Filed: 09/18/24 17:52> Follow-up/Referrals: PHYSICIAN NOT ON STAFF,NONSTAFF [Primary Care Provider] - 1 Week <Caitlyn Live December, Last Filed: 09/18/24 17:52>
--- OUTSIDE RECORDS SUMMARY | 2024-09-18 18:40 | XMS_ITS | Encounter Summary ---
Author Organization [facility] Address [facility] [place] [address] Care Team Providers Care Flight Operations Dispatch Clerk Name Role Phone Abigail Houston MD Primary Care Provider [phone] Fe Wright APRN Primary Care Provider [phone] Nicolette Mcduffie PA-C Primary Care Provider [phone] Encounter Details Date Type Department Care Team (Late st Contact Info) Description 12/10/2021 MyCOSSIANIXt Message Enc [facility] Medical Group Family & Internal Medicine [facility] [address] [place] [address] Abigail Houston MD [address] [place] [address] control refill Social History Tobacco Use [...] 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 Not on file Not on file documented as of this encounter Plan of Treatment Upcoming Encounters Date Type Department Care Team (Late st Contact Info) Description 09/23/2024 12:40 PM SENIOR CLINICAL RESEARCH SCIENTIST Office Visit [facility] Medical Group Family Medicine - [place] [address] [facility] [address] [place] [address] Elise Pemberton, PARENT TRAINER [address] [place] [address] documented as of this encounter Visit Diagnoses Not on filedocumented in this encounter Additional Health Concerns Infection Onset Date Last Indicated Resolved Time COVID-19 Rule Out 08/02/2022 08/02/2022 08/02/2022 9:50 AM SENIOR CLINICAL RESEARCH SCIENTIST COVID-19 Confirmed 08/02/2022 08/02/2022 12:32 AM SENIOR CLINICAL RESEARCH SCIENTIST Assessment Noted Time PHQ-9 Depression Total Score: 0 12/19/19 19 3:40 PM CDT documented as of this encounter Care Teams Flight Operations Dispatch Clerk Relationship Specialty Start Date End Date Abigail Houston MD PCP - General INTERNAL MEDICINE 08/19/18 12/03/22 Fe Wright APRN [address] [place] [address] PCP - General NURSE PRACTITIONER 12/04/22 01/23/23 Nicolette Mcduffie PARoseC [address] [place] [address] PCP - General PHYSICIAN BAROMETERS CALIBRATOR 01/24/23 09/22/24 documented as of this encounter
--- OUTSIDE RECORDS SUMMARY | 2024-09-18 18:40 | XMS_ITS | Encounter Summary ---
Author Organization [facility] Address [facility] [place] [address] Care Team Providers Care Cardiac Catheterization Technologist Name Role Phone Abigail Houston MD Primary Care Provider [phone] Fe Wright APRN Primary Care Provider [phone] Nicolette Mcduffie PA-C Primary Care Provider [phone] Encounter Details Date Type Department Care Team (Late st Contact Info) Description 07/11/2022 Trifactat Message Enc [facility] Medical Group Family & Internal Medicine [facility] [address] [place] [address] Abigail Houston MD [address] [place] [address] Cold Social History Tobacco Use Types [...] 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 No / Unsure 07/12/2022 7:05 AM CUSTOMER LIAISON documented as of this encounter Plan of Treatment Upcoming Encounters Date Type Department Care Team (Late st Contact Info) Description 09/23/2024 12:40 PM CUSTOMER LIAISON Office Visit [facility] Medical Group Family Medicine - [place] [address] [facility] [address] [place], [place] [address] Elise Pemberton, JABIER [address] [place] [address] documented as of this encounter Visit Diagnoses Not on filedocumented in this encounter Additional Health Concerns Infection Onset Date Last Indicated Resolved Time COVID-19 Rule Out 08/02/2022 08/02/2022 08/02/2022 9:50 AM CUSTOMER LIAISON COVID-19 Confirmed 08/02/2022 08/02/2022 12:32 AM CUSTOMER LIAISON Assessment Noted Time PHQ-9 Depression Total Score: 0 01/25/20 22 8:02 AM CDT documented as of this encounter Care Teams Cardiac Catheterization Technologist Relationship Specialty Start Date End Date Abigail Houston MD PCP - General INTERNAL MEDICINE 08/19/18 12/03/22 Fe Wright APRN [address] [place] [address] PCP - General NURSE PRACTITIONER 12/04/22 01/23/23 Nicolette Mcduffie PA-C [address] [place] [address] PCP - General PHYSICIAN ELECTION ASSISTANT 01/24/23 09/22/24 documented as of this encounter
--- OUTSIDE RECORDS SUMMARY | 2024-09-18 18:40 | XMS_ITS | Encounter Summary ---
Author Organization [facility] Address [facility] [place] [address] Care Team Providers Care Director Pediatric Name Role Phone Abigail Houston MD Primary Care Provider [phone] Fe Wright APRN Primary Care Provider [phone] Nicolette Mcduffie PA-C Primary Care Provider [phone] Encounter Details Date Type Department Care Team (Late st Contact Info) Description 08/07/2022 YaSabet Message Enc [facility] Medical Group Family & Internal Medicine [facility] [address] [place] [address] Abigail Houston MD [address] [place] [address] [place] Social History Tobacco Use Types [...] 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 Yes 08/02/2022 9:15 AM LUMBER KILN OPERATOR documented as of this encounter Plan of Treatment Upcoming Encounters Date Type Department Care Team (Late st Contact Info) Description 09/23/2024 12:40 PM LUMBER KILN OPERATOR Office Visit [facility] Medical Group Family Medicine - [place] [address] [facility] [address] [place], [place] [address] Elise Pemberton, ROLLER MILL TENDER [address] [place] [address] [place] [address] documented as of this encounter Visit Diagnoses Not on filedocumented in this encounter Additional Health Concerns Infection Onset Date Last Indicated Resolved Time COVID-19 Confirmed 08/02/2022 08/02/2022 12:32 AM LUMBER KILN OPERATOR Assessment Noted Time PHQ-9 Depression Total Score: 0 01/25/20 22 8:02 AM CDT documented as of this encounter Care Teams Director Pediatric Relationship Specialty Start Date End Date Abigail Houston MD PCP - General INTERNAL MEDICINE 08/19/18 12/03/22 Fe Wright APRN [address] [place] [address] PCP - General NURSE PRACTITIONER 12/04/22 01/23/23 Nicolette Mcduffie PA-C [address] [place], [place] [id number] PCP - General PHYSICIAN BUDDER 01/24/23 09/22/24 documented as of this encounter
--- OUTSIDE RECORDS SUMMARY | 2024-09-18 18:40 | XMS_ITS | Encounter Summary ---
Author Organization [facility] Address [facility] [place] [address] Care Team Providers Care Shells Inspector Name Role Phone Nicolette Mcduffie PA-C Primary Care Provider [phone] Encounter Details Date Type Department Care Team (Late st Contact Info) Description 01/31/2023 MyChart Message Enc 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 Not on file Not on file documented as of this encounter Plan of Treatment Upcoming Encounters Date Type Department Care Team (Late Contact Info) Description 09/23/2024 12:40 PM ASSET MANAGER Office Visit [facility] Medical Group Family Medicine - [place] [address] [facility] [address] [place] [address] Elise Pemberton, JABIER [address] [place] [address] documented as of this encounter Visit Diagnoses Not on filedocumented in this encounter Additional Health Concerns Assessment Noted Time PHQ-9 Depression Total Score: 0 09/05/19 23 4:02 PM ASSET MANAGER documented as of this encounter Care Teams Shells Inspector Relationship Specialty Start Date End Date Nicolette Mcduffie PA-C [address] [facility] [address] [place] [address] PCP - General PHYSICIAN KINDERGARTEN TEACHER ASSISTANT 01/24/23 09/22/24 documented as of this encounter
--- OUTSIDE RECORDS SUMMARY | 2024-09-18 18:40 | XMS_ITS | Clinical Summary ---
Author Organization [facility] Address [facility] [place] [address] Care Team Providers Care Enrollment Services Dean Name Role Phone Nicolette Mcduffie PA-C Primary Care Provider [phone] Allergies Active Allergy Reactions Criticality Noted Date [...] 19 Assessment & Plan (09/09/2018 4:17 PM LINE TENDER FLAKEBOARD): Given severity of symptoms and preceding URI symptoms that resolved then suddenly worsened will treat for strep. 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 Not on file Not [...] st Contact Info) Description 09/23/2024 12:40 PM LINE TENDER FLAKEBOARD Office Visit [facility] Medical Group Family Medicine [facility] [address] [facility] [address] [place] [address] Elise Pemberton, HOT KETTLE TENDER [address] [place] [address] Health Maintenance Due Date Last Done Comments [...] Adult (#1) 2024 05/23/2018, 05/23/2016 PHQ-2 (Physician [place]) 08/06/2024 01/09/2024 Cervical Cancer Screening Pa p [...] 01/24/2022 9:03 AM CDT Visit for routine melter clerk exam from Last 3 Months or Most Recently Relevant to Health Maintenance Results * Cytopath Cerv/Vag Thin Layer (01/24/2022 9:03 AM CDT) CLINICAL INFORMATION: Information not provided [facility] Clinical Information: UNKNOWN [facility] Date of Last Pap INFORMATION NOT PROVIDED [facility] Previous Biopsy? INFORMATION NOT PROVIDED [facility] SOURCE (QST) Cervix, Endocervix [facility] STATEMENT OF ADEQUACY: [facility] Comment: Satisfactory for evaluation. Endocervical/transformation zone component present. Age and/or menstrual status not provided PAP INTERPRETATION/RESU LTS Negative for intraepithelial lesion or malignancy. [facility] MODELING DIRECTOR Que [facility] Comment: KMCARLIE Price(ASCP) CT Screening location: [place] [address] [place] [id number] COMMENT: [facility] Comment: EXPLANATORY NOTE: The Pap is a [...] Result [facility] [address] [place] [id number] from Last 3 Months or Most Recently Relevant to Health Maintenance Insurance [facility] Care Teams Enrollment Services Dean Relationship Specialty Start Date End Date Nicolette Mcdufife PA-C [address] [facility] [address] [place] [address] PCP - General PHYSICIAN TECHNOLOGY ADOPTION MANAGER 01/24/23 09/22/24
--- OUTSIDE RECORDS SUMMARY | 2024-09-18 18:40 | XMS_ITS | Encounter Summary ---
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 Not on file Not on file documented as of this encounter Plan of Treatment Upcoming Encounters Date Type Department Care Team (Late st Contact Info) Description 09/23/2024 12:40 PM FLAT GRINDER OPERATOR Office Visit [facility] Family Medicine - [place] [address] [facility] [address] [place] [address] Elise Pemberton, JABIER [address] [place] [address] documented as of this encounter Visit Diagnoses Not on filedocumented in this encounter Additional Health Concerns Infection Onset Date Last Indicated Resolved Time COVID-19 Rule Out 08/02/2022 08/02/2022 08/02/2022 9:50 AM FLAT GRINDER OPERATOR COVID-19 Confirmed 08/02/2022 08/02/2022 12:32 AM FLAT GRINDER OPERATOR Assessment Noted Time PHQ-9 Depression Total Score: 0 01/25/20 8:02 AM CDT documented as of this encounter Care Teams Leather Sponger Relationship Specialty Start Date End Date Abigail Houston MD PCP - General INTERNAL MEDICINE 08/19/18 12/03/22 Fe Wright APRN [address] [place] [address] PCP - General NURSE PRACTITIONER 12/04/22 01/23/23 Nicolette Mcduffie PA-C [address] [place], [place] [id number] PCP - General PHYSICIAN TESTER FOOD PRODUCTS 01/24/23 09/22/24 documented as of this encounter
--- OUTSIDE RECORDS SUMMARY | 2024-09-18 18:40 | XMS_ITS | Encounter Summary ---
Author Organization [facility] Address [facility] [place] [address] Care Team Providers Care Back Tender Insulation Board Name Role Phone Abigail Houston MD Primary Care Provider [phone] Fe Wright APRN Primary Care Provider [phone] Nicolette Mcduffie PA-C Primary Care Provider [phone] Encounter Details Date Type Department Care Team (Late st Contact Info) Description 09/05/2020 MyCEnsightent Message Enc [facility] Medical [facility] Family & Internal Medicine [facility] [address] [place] [address] Germaine Cristina, HIGH SCALER [address] [id number] RE: Test Results Social History Tobacco Use [...] 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 No / Unsure 08/23/2020 12:21 PM DISPATCHER ELECTRIC POWER documented as of this encounter Plan of Treatment Upcoming Encounters Date Type Department Care Team (Late st Contact Info) Description 09/23/2024 12:40 PM DISPATCHER ELECTRIC POWER Office Visit [facility] Family Medicine - [place] [address] [facility] [address] [place], [place] [address] Elise Pemberton, JABIER [address] [place] [address] documented as of this encounter Visit Diagnoses Not on filedocumented in this encounter Additional Health Concerns Infection Onset Date Last Indicated Resolved Time COVID-19 Rule Out 08/02/2022 08/02/2022 08/02/2022 9:50 AM DISPATCHER ELECTRIC POWER COVID-19 Confirmed 08/02/2022 08/02/2022 12:32 AM DISPATCHER ELECTRIC POWER Assessment Noted Time PHQ-9 Depression Total Score: 0 12/19/19 19 3:40 PM CDT documented as of this encounter Care Teams Back Tender Insulation Board Relationship Specialty Start Date End Date Abigail Houston MD PCP - General INTERNAL MEDICINE 08/19/18 12/03/22 Fe Wright APRN [address] [place], [place] [id number] PCP - General NURSE PRACTITIONER 12/04/22 01/23/23 Nicolette Mcduffie PA-C [address] [place], [place] [phone] PCP - General PHYSICIAN MANAGER EPIC 01/24/23 09/22/24 documented as of this encounter
--- OUTSIDE RECORDS SUMMARY | 2024-09-18 18:40 | XMS_ITS | Encounter Summary ---
Author Organization [facility] Address [facility] [place] [address] Care Team Providers Care Research Professor Of Biostatistics Name Role Phone Abigail Houston MD Primary Care Provider [phone] Fe Wright APRN Primary Care Provider [phone] Nicolette Mcduffie PA-C Primary Care Provider [phone] Encounter Details Date Type Department Care Team (Late st Contact Info) Description 11/29/2015 Abstract [facility] CONVERSION [address] [place], [place] [id number] , Generic Conversion, Social History Tobacco Use [...] st Contact Info) Description 09/23/2024 12:40 PM MEDICARE CONTACT SPECIALIST Office Visit [facility] Family Medicine - [place] [address] [facility] [address] [place] [id number] Elise Pemberton NP [address] [place] [address] documented as of this encounter Visit Diagnoses Not on filedocumented in this encounter Additional Health Concerns Infection Onset Date Last Indicated Resolved Time COVID-19 Rule Out 08/02/2022 08/02/2022 08/02/2022 9:50 AM MEDICARE CONTACT SPECIALIST COVID-19 Confirmed 08/02/2022 08/02/2022 12:32 AM MEDICARE CONTACT SPECIALIST documented as of this encounter Care Teams Research Professor Of Biostatistics Relationship Specialty Start Date End Date Abigail Houston MD PCP - General INTERNAL MEDICINE 08/19/18 12/03/22 Fe Wright APRN [address] [facility] [place] [address] PCP - General NURSE PRACTITIONER 12/04/22 01/23/23 Nicolette Mcduffie PA-C [address] [place] [address] PCP - General PHYSICIAN WARNING COORDINATION METEOROLOGIST 01/24/23 09/22/24 documented as of this encounter
--- OUTSIDE RECORDS SUMMARY | 2024-09-18 18:40 | XMS_ITS | Referral Summary ---
Author Organization [facility] [address] Address [address] [place] [address] Care Team Providers Care Promotions Director Name Role Phone Nicolette Mcduffie Primary Care Provider [phone] Allergies Active Allergy Reactions Criticality Noted Date Comments Amoxicillin-Pot Clavulanate Rash Medium 03/28/20 23 Medications albuterol (PROAIR RESPICLICK) 90 mcg/actuation inhaler Inhale 2 puffs as needed for wheezing Active rizatriptan JAVA ANDROID DEVELOPER (MAXALT-JAVA ANDROID DEVELOPER) 5 mg disintegrating tabletIndications:M igraine Take 1 [...] Plan of Treatment Not on file Insurance [employer] [place] [employer] Care Teams Promotions Director Relationship Specialty [place] [address] [facility] [address] [place] [id number] PCP - General Physician Art Tracer 09/20/23
--- OUTSIDE RECORDS SUMMARY | 2024-09-18 18:40 | XMS_ITS | Encounter Summary ---
Author Organization [facility] Address [facility] [place] [address] Care Team Providers Care Van Loader Name Role Phone Nicolette Mcduffie PA-C Primary Care Provider [phone] Encounter Details Date Type Department Care Team (Late st Contact Info) Description 01/30/2023 Technorides Message Enc [facility] Family & Internal Medicine [facility] [address] [place] [address] Nicolette Mcduffie PA-C [address] [place] [address] Clonazepam Social History Tobacco Use Types [...] 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 Thank you! * Maar Cummins RN - 01/30/2023 12:10 PM CDT Needs to be sent in under new provider name documented in this encounter Plan of Treatment Upcoming Encounters Date Type Department Care Team (Late st Contact Info) Description 09/23/2024 12:40 PM NOTCH GRINDER Office Visit [facility] Family Medicine - [place] [address] [facility] [address] [place] [address] Elise Pemberton, JABIER [address] [place] [address] documented as of this encounter Visit Diagnoses Diagnosis Anxiety Anxiety state, unspecified documented in this encounter Additional Health Concerns Assessment Noted Time PHQ-9 Depression Total Score: 0 09/05/19 23 4:02 PM NOTCH GRINDER documented as of this encounter Care Teams Van Loader Relationship Specialty Start Date End Date Nicolette Mcduffie PA-C [address] [facility] [address] [place] [id number] PCP - General PHYSICIAN ELECTRONICS LEAD 01/24/23 09/22/24 documented as of this encounter
--- OUTSIDE RECORDS SUMMARY | 2024-09-18 18:40 | XMS_ITS | Clinical Summary ---
Author Organization [facility] [address] Address [address] [place] [address] Care Team Providers Care Roper Operator Name Role Phone Nicolette Mcduffie Primary Care Provider [phone] Allergies Active Allergy Reactions Criticality Noted Date Comments Amoxicillin-Pot Clavulanate Rash Medium 03/28/20 23 Medications albuterol (PROAIR RESPICLICK) 90 mcg/actuation inhaler Inhale 2 puffs as needed for wheezing Active rizatriptan AIRCRAFT STRUCTURE MECHANIC (MAXALT-AIRCRAFT STRUCTURE MECHANIC) 5 mg disintegrating tabletIndications:M igraine Take 1 [...] patient's age to complete this topic Insurance [employer] OOS [employer] Maintenance [employer] OOS Care Teams Roper Operator Relationship Specialty Start [place] [address] [facility] [address] [place] [address] PCP - General Physician Beater Tender 09/20/23
--- OUTSIDE RECORDS SUMMARY | 2024-09-18 18:40 | XMS_ITS | Encounter Summary ---
Author Organization [facility] Address [facility] [place] [address] Care Team Providers Care Skin Lap Bonder Name Role Phone Fe Wright APRN Primary Care Provider [phone] Nicolette Mcduffie PA-C Primary Care Provider [phone] Encounter Details Date Type Department Care Team (Late st Contact Info) Description 12/05/2022 RTF Logic Message Enc [facility] Family & Internal Medicine [facility] [address] [place] [address] Estefanía, [facility] Provider Clonazepam Social History Tobacco [...] 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 Not on file Not on file documented as of this encounter Plan of Treatment Upcoming Encounters Date Type Department Care Team (Late st Contact Info) Description 09/23/2024 12:40 PM GRID INSPECTOR Office Visit [facility] Family Medicine - [place] [address] [facility] [address] [place] [address] Elise Pemberton, SENIOR BUDGET ANALYST [address] [place] [address] documented as of this encounter Visit Diagnoses Not on filedocumented in this encounter Additional Health Concerns Assessment Noted Time PHQ-9 Depression Total Score: 0 09/05/19 4:02 PM GRID INSPECTOR documented as of this encounter Care Teams Skin Lap Bonder Relationship Specialty Start Date End Date Fe Wright APRN [address] [place] [address] PCP - General NURSE PRACTITIONER 12/04/22 01/23/23 Nicolette Mcduffie PA-C [address] [place] [address] PCP - General PHYSICIAN VRT MECHANIC 01/24/23 09/22/24 documented as of this encounter
--- OUTSIDE RECORDS SUMMARY | 2024-09-18 18:40 | XMS_ITS | Encounter Summary ---
Author Organization [facility] Address [facility] [place] [address] Care Team Providers Care Bee Raiser Name Role Phone Abigail Houston MD Primary Care Provider [phone] Fe Wright APRN Primary Care Provider [phone] Nicolette Mcduffie PA-C Primary Care Provider [phone] Encounter Details Date Type Department Care Team (Late st Contact Info) Description 12/10/2021 [employer] Message Enc [facility] Family & Internal Medicine [facility] [address] [place] [address] Kaylen Billings, PRODUCT MANAGER FINANCIAL SERVICES Control Refill - Viorelle Social History Tobacco [...] 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 Not on file Not on file documented as of this encounter Plan of Treatment Upcoming Encounters Date Type Department Care Team (Late st Contact Info) Description 09/23/2024 12:40 PM LATH HAND Office Visit [facility] Family Medicine - [place] [address] [facility] [address] [place] [address] Elise Pemberton, PRODUCT MANAGER FINANCIAL SERVICES [address] [place], [place] [address] documented as of this encounter Visit Diagnoses Not on filedocumented in this encounter Additional Health Concerns Infection Onset Date Last Indicated Resolved Time COVID-19 Rule Out 08/02/2022 08/02/2022 08/02/2022 9:50 AM LATH HAND COVID-19 Confirmed 08/02/2022 08/02/2022 12:32 AM LATH HAND Assessment Noted Time PHQ-9 Depression Total Score: 0 12/19/19 3:40 PM CDT documented as of this encounter Care Teams Bee Raiser Relationship Specialty Start Date End Date Abigail Houston MD PCP - General INTERNAL MEDICINE 08/19/18 12/03/22 Fe Wright APRN [address] [place] [address] PCP - General NURSE PRACTITIONER 12/04/22 01/23/23 Nicolette Mcduffie PA-C [address] [place] [address] PCP - General PHYSICIAN INFORMATION SERVICES VICE PRESIDENT 01/24/23 09/22/24 documented as of this encounter
[2024-09-18] MEDS: CIPROFLOXACIN 500 MG TAB PO (20:11)
[2024-09-18] MEDS: metroNIDAZOLE 500 MG TABLET PO (20:11)
[2024-09-18 20:45] VITALS: BP 124/72; PULSE 89; RESP 15; O2SAT 100
== END 2024-09-18 20:46 | disposition home or self-care (01) ==
PROVIDERS: Nurse Practitioner Family; Emergency Provider Emergency Medicine
DX: K57.32 Diverticulitis of large intestine without perforation or abscess without bleeding (principal)
CPT/HCPCS: 36415; 74177; 80053; 81003; 81025; 83690; 85025; 99284; A9270; Q9967

== ENCOUNTER 2024-11-07 14:14 | Outpatient (CLI) | payer BC, SELFPAY ==
--- NOTE | ~2024-11-07 | US_ITS ---
EXAMINATION: US OB transvaginal DATE: 11/07/2024 14:53 INDICATION: Uncertain dating of first trimester TECHNIQUE: Real-time pelvic ultrasound utilizing both a transvaginal and transabdominal probe was pe rformed. The interpreting radiologist was not present for the study. COMPARISON: None. FINDINGS: The uterus measures 10.1 x 4.4 x 5.8 cm. There is an intrauterine gestational sac. A yolk sac and li dion pole are identified. The crown rump length measures 5 mm, which correlates with an estimat ed gestational age of 6 weeks and 2 days. No evident heart motion by M-mode Doppler which may b e due to early stage of . The right ovary measures 2.5 x 1.9 x 3.0 cm. The left ovary measures 2.7 x 2.8 x 1.9 cm. There is no free fluid in the pelvis. IMPRESSION: 1. Single intrauterine gestational sac with likely 5 mm pole without discernible heart motion w hich may be due to early stage of . Could consider 7-14 day follow-up ultrasound to assess f or viability and for more definitive determination of gestational age. 2. Gestational age by ultrasound of 6 weeks 2 day(s) +/- 4 day(s) with ultrasound estimated date of delivery (NGOC) of 07/01/2025. Reviewed, dictated and finalized at location A. IMPRESSION: 1. Single intrauterine gestational sac with likely 5 mm pole without disc ernible heart motion which may be due to early stage of . Could consid er 7-14 day follow-up ultrasound to assess for viability and for more definitiv e determination of gestational age. 2. Gestational age by ultrasound of 6 weeks 2 day(s) +/- 4 day(s) with ultraso und estimated date of delivery (NGOC) of 07/01/2025.
== END 2024-11-07 14:15 | disposition home or self-care (01) ==
LOC: MICIMG 14:15
PROVIDERS: PCP Obstetrics & Gynecology Gynecology; Visit Provider Nurse Practitioner Women's Health
DX: Z36.87 Encounter for antenatal screening for uncertain dates (principal); Z3A.01 Less than 8 weeks gestation of pregnancy
CPT/HCPCS: 76817

== ENCOUNTER 2024-11-15 10:30 | Outpatient (CLI) | payer BC, SELFPAY ==
--- NOTE | ~2024-11-15 | US_ITS ---
Pelvic ultrasound. Clinical History: First trimester , establish dates and viability Technique: Realtime transabdominal and transvaginal scanning of the pelvis was performed. Color flow Doppler and Doppler spectral analysis were performed. Findings: The uterus is anteverted, and contains an intrauterine gestational sac. Average sac diamete r 2.2 cm corresponds to an estimated gestational age of 7 weeks 1 day. No yolk sac or pole evid ent.. The right ovary measures 2.3 x 2.2 x 2.7 cm. No significant right ovarian or adnexal mass is seen. The left ovary measures 2.2 x 2.3 x 1.4 cm. No significant left ovarian or adnexal mass is seen. There is no evidence of free fluid in the cul de sac. Impression: Intrauterine gestational sac with estimated gestational age of 7 weeks 1 day by average sac diameter, but no visible pole or yolk sac. Findings are most compatible with missed /blighted ov um. Reviewed, dictated and finalized at location . Impression: Intrauterine gestational sac with estimated gestational age of 7 weeks 1 day by average sac diameter, but no visible pole or yolk sac. Findings are most compatible with missed /blighted ovum.
== END 2024-11-15 10:31 | disposition home or self-care (01) ==
LOC: MICIMG 10:31
PROVIDERS: PCP Obstetrics & Gynecology Gynecology; Visit Provider Obstetrics & Gynecology Gynecology
DX: Z36.87 Encounter for antenatal screening for uncertain dates (principal)
CPT/HCPCS: 76817

== ENCOUNTER 2024-11-20 01:00 | Day surgery (SDC) | payer BC, SELFPAY ==
[2024-11-18 15:54] VITALS: BMI 23.8
--- NOTE | 2024-11-18 15:55 | PC.NURSE ---
Report to the Outpatient Waiting Room, entrance under the green pavilion located off [facility], at time ___1030___ on date ___11/20/24____. Planned Procedure Time: ____1230____.? Time changes happen often and if your time is changed the preop area will call you the afternoon before. - You and your visitor will be asked to self-screen and do not enter if you have any COVID symptoms. Please call surgeon if you need to reschedule. - A mask is optional within the hospital at this time. Patients may have clear liquids (water, carbonated beverages, clear teas, apple juice) until 3 hours prior to surgery with a maximum of 20 ounces. - No food from midnight until time of surgery and no smoking, or chewing tobacco (or any form of nicotine). No chewing gum, candy or mints. Take only the following medications with a SIP of water on the morning of surgery: albuterol as needed DO NOT STOP ANY OF YOUR OTHER PRESCRIPTION MEDICATIONS PRIOR TO SURGERY EXCEPT THE FOLLOWING Hold all vitamins and supplements for 3 days per anesthesiologist. Medications to discontinue per physician Date to take last dose Please no make-up, nail mohawk, hairspray, perfume, deodorant, or body powder the day of surgery.? No jewelry (including any body piercings) or valuables the day of surgery, leave them at home.? Please take a shower or bath the night before, or the morning of, surgery with an antibacterial soap.? Wear comfortable, loose fitting clothing.? Children are encouraged to wear pajamas. - Jewelry must be removed prior to entering the operating room.? Rings and piercings that are not removed may be cut off. - The hospital will not accept responsibility for valuables.? - Please leave all valuables, including medications, at home the day of surgery. If you are going home after surgery, a licensed city bus driver must drive you home.? - NO public transportation without another adult if you receive anesthesia. - We recommend that an adult stay with you for 24 hours following discharge. - We also recommend that you do not drive, make important decision, drink alcoholic beverages, or take any drugs that were not prescribed by your health care provider for at least 24 hours after your discharge time. Follow any additional instructions given to you from your surgeon. Telephone instructions given to Rachel and asked if any additional questions and then verbalized understanding. Patient advised to call surgeon office or pre surgery nurse liaison [phone] if any additional questions.
--- OUTSIDE RECORDS SUMMARY | 2024-11-20 01:03 | XMS_ITS | Encounter Summary ---
Author Organization [facility] Address [address] [place] [address] Care Team Providers Care Qa Automation Architect Name Role Phone Elise Pemberton ANIMAL BOUNTY HUNTER Primary Care Provider [phone] Elise Pemberton ANIMAL BOUNTY HUNTER Primary Care Provider [phone] Encounter Details Date Type Department Care Team (Late st Contact Info) Description 01/31/2023 MyChart Message Enc [facility] Medical [facility] - [facility] [address] [place] [address] [facility] Air Quality Message Social History [...] Information Value Date Recorded Sex Assigned at Female 09/23/2024 8:11 AM AUDIO EXPERIENCE EXPERT Legal Sex Female 8:25 PM CDT Gender Identity Female 09/23/2024 8:11 AM AUDIO EXPERIENCE EXPERT Sexual Orientation Straight 09/23/2024 8: 11 AM AUDIO EXPERIENCE EXPERT 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 Not on file Not on file documented as of this encounter Plan of Treatment Not on file documented as of this encounter Visit Diagnoses Not on filedocumented in this encounter Additional Health Concerns Assessment Noted Time PHQ-9 Depression Total Score: 0 09/05/19 23 4:02 PM AUDIO EXPERIENCE EXPERT documented as of this encounter Care Teams Qa Automation Architect Relationship Specialty Start Date End Date Elise Pemberton NP [address] [place] [address] PCP - General NURSE PRACTITIONER 09/23/24 Elise Pemberton NP [address] [place] [address] PCP - General NURSE PRACTITIONER 09/21/24 09/22/24 documented as of this encounter
--- OUTSIDE RECORDS SUMMARY | 2024-11-20 01:03 | XMS_ITS | Encounter Summary ---
Author Organization [facility] Address [address] [place] [address] Care Team Providers Care Smoking Pipe Driller And Threader Name Role Phone Abigail Houston MD Primary Care Provider [phone] Fe Wright APRN Primary Care Provider [phone] Elise Pemberton NP Primary Care Provider [phone] Elise Pemberton NP Primary Care Provider [phone] Encounter Details Date Type Department Care Team (Late st Contact Info) Description 03/25/2022 Push IOt Message Enc [facility] Medical Group Family & Internal Medicine [address] [address] Kaylen Billings, JABIER UTI Social [...] Sex Assigned at Female 09/23/2024 8:11 AM ANESTHETIST Legal Sex Female 8:25 PM CDT Gender Identity Female 09/23/2024 8:11 AM ANESTHETIST Sexual Orientation Straight 09/23/2024 8: 11 AM ANESTHETIST 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 Not on file Not on file documented as of this encounter Plan of Treatment Not on file documented as of this encounter Visit Diagnoses Not on filedocumented in this encounter Additional Health Concerns Infection Onset Date Last Indicated Resolved Time COVID-19 Rule Out 08/02/2022 08/02/2022 08/02/2022 9:50 AM ANESTHETIST COVID-19 Confirmed 08/02/2022 08/02/2022 12:32 AM ANESTHETIST Assessment Noted Time PHQ-9 Depression Total Score: 0 01/25/20 8:02 AM CDT documented as of this encounter Care Teams Smoking Pipe Driller And Threader Relationship Specialty Start Date End Date Abigail Houston MD PCP - General INTERNAL MEDICINE 08/19/18 12/03/22 Fe Wright APRN [address] [address] PCP - General NURSE PRACTITIONER 12/04/22 01/23/23 Elise Pemberton NP [address] [place] [address] PCP - General NURSE PRACTITIONER 09/23/24 Elise Pemberton NP [address] [place] [address] PCP - General NURSE PRACTITIONER 09/21/24 09/22/24 documented as of this encounter
--- OUTSIDE RECORDS SUMMARY | 2024-11-20 01:03 | XMS_ITS | Encounter Summary ---
Author Organization [facility] Address [address] [place] [address] Phone Care Team Providers Care Welt Butter Hand Name Role Phone Nicolette Mcduffie Primary Care Provider [phone] Encounter Details Date Type Department Care Team (Late st Contact Info) Description 10/20/2024 Telephone [facility] General Neurology [address] [facility] 6th [address] [place] [address] Srinivasan Kinney, RN Social History Tobacco Use Types Packs/Day Years Used Date Smoking Tobacco: Never Personal Safety Answer Date Recorded Getting School Help Needed Not on file 09/20 Comments Unknown Sex and Gender Information Value Date Recorded Sex Assigned at Not on file Legal Sex Female 1:37 PM CDT Gender Identity Female 05/24/2024 7:22 AM CDT Sexual Orientation Straight 05/24/2024 7: 22 AM CDT documented as of this encounter Miscellaneous Notes * Telephone Encounter - Srinivasan Kinney RN - 10/20/2024 8:49 AM CDT FYI She called to cancel her appointment. She is and knows there aren't many medication options safe for . She will d/c Rizatriptan. Will send mychart message with recommendations for medications safe for . documented in this encounter Plan of Treatment Not on file documented as of this encounter Visit Diagnoses Not on filedocumented in this encounter Care Teams Welt Butter Hand Relationship Specialty [place] [address] [facility] [address] [place] [address] PCP - General Physician Piggery Worker 09/20/23 documented as of this encounter
--- OUTSIDE RECORDS SUMMARY | 2024-11-20 01:03 | XMS_ITS | Clinical Summary ---
Author Organization [facility] [employer] Address [address] [place] [address] Care Team Providers Care Temple Marker Name Role Phone Nicolette Mcduffie Primary Care Provider [phone] Allergies Active Allergy Reactions Criticality Noted Date Comments Amoxicillin-Pot Clavulanate Rash Medium 03/28/20 23 Medications albuterol (PROAIR RESPICLICK) 90 mcg/actuation inhaler Inhale 2 puffs as needed for wheezing Active rizatriptan MILLER APPRENTICE (MAXALT-MILLER APPRENTICE) 5 mg disintegrating tabletIndications:M igraine Take 1 [...] Again may be recommending a neurology referral. Encounters Date Type Department Care Team Description 10/20/2024 Telephone [facility] General Neurology [address] [facility] 6th [address] [place] [address] Nirmal, Srinivasan Claudio RN from Last 3 Months Social History Tobacco Use Types Packs/Day Years [...] Depression Screening 1987 Hepatitis C Screening 1987 Varicella Vaccines (1 of 2 - 13+ 2-dose series) 2000 Hepatitis B Screening 2005 Regular Well Visit/Exam 18-64 2005 Pneumococcal vaccine <65 (1 of 2 - PCV) 2006 Cervical Cancer Screening 01/24/2023 01/24/2022 Influenza Vaccine (#1) 2024 8, 05/23/2016 DTaP/Tdap/Td Vaccine (3 - Td or Tdap) 01/25/2033 01/25/2023, 10/26/2012 HPV Vaccines Aged Out No longer eligi ble based on patient's age to complete this topic Insurance Keepio OOS Keepio OOS Care Teams Temple Marker Relationship Specialty Start [place] [address] [facility] [address] [place] [address] PCP - General Physician Business Account Executive 09/20/23
--- OUTSIDE RECORDS SUMMARY | 2024-11-20 01:03 | XMS_ITS | Clinical Summary ---
Author Organization [facility] Address [facility] [place] [address] Care Team Providers Care Lead Front Desk Agent Name Role Phone Elise Pemberton GROUND WATER PUMP INSTALLER Primary Care Provider [phone] Allergies Active Allergy Reactions Criticality Noted Date Comments Amoxicillin-Pot Clavulanate Swelling Low 07/01/20 14 Medications rizatriptan (MAXALT) 5 MG tabletIndication s:Intractable migraine with aura without status migrainosus Take 1 tablet (5 mg total) by mouth as needed for Migraine. May repeat in 2 hours if needed times one dose 9 tablet 11 3 Active albuterol sulfate HFA 108 (90 Base) MCG/ACT inhalerIndicatio ns:Acute cough inhale 2 puffs by mouth every 6 hours as needed for wheezing 8.5 g 4 Active 28-0.8 MG tablet Take 1 tablet by mouth daily. Active nystatin (MYCOSTATIN) 546355 UNIT/ML suspensionIndica tions:Oral thrush Take 5 mLs (500,000 Units total) by mouth 4 (four) times daily for 14 days. 280 mL 5 10/23/19 25 Active Problems Problem Noted Date Diagnosed Date Acute diverticulitis 09/23/2024 Assessment & Plan (09/23/2024 4:41 PM CHIEF ENGINEER RESEARCH): Patient denies any tenderness on exam but is still having some left lower quadrant discomfort with eating. I will provide patient 7 more days of antibiotics as I prefer patient to complete at least 10- 14 days worth of antibiotic. I will provide another 7 days worth of both antibiotics but to reevaluate in 3 days with use if she is feeling better. Discuss advance diet very slowly. While she is having acute inflammation from diverticulitis right now recommend low fiber until her symptoms have resolved then fiber is necessary in diet and to stay well hydrated. If severe abd pain/fever occurs while on antibiotic therapy recommend to go back to the ER. Will place referral to GI as pt will need a colonoscopy as well in near future. Enlarged lymph node in neck 09/04/2019 Anxiety 04/11/2016 Migraine with aura and witho ut status migrainosus, not intractable 11/08/2015 Assessment & Plan (09/23/2024 4:33 PM CHIEF ENGINEER RESEARCH): Chronic condition. Controlled. No changes needed this time. Mild intermittent asthma (HHS/HCC) 04/14/2014 Assessment & Plan (09/23/2024 4:39 PM CHIEF ENGINEER RESEARCH): Chronic condition. Controlled. Stable with use of as needed albuterol. If needing to use more than twice a week to follow-up. Avoid potential asthma triggers. Dysmenorrhea 04/14/2013 Resolved Problems Problem Noted Date Diagnosed Date Resolved Date Lymphadenopathy of head and neck region 08/26/2019 09/23/2024 Neck pain 08/20/2019 09/23/2024 Lump in neck 08/20/2019 09/23/2024 Pain in a tooth or teeth 08/20/2019 Flu-like symptoms 09/18/2018 09/23/2024 Cough 09/18/2018 09/23/2024 Sinusitis, unspecified chron icity, unspecified location 09/18/2018 09/23/2024 Candidiasis 09/18/2018 09/23/2024 Acute pharyngitis, unspecified etiology 09/09/2018 09/23/2024 Assessment & Plan (09/09/2018 4:17 PM CHIEF ENGINEER RESEARCH): Given severity of symptoms and preceding URI symptoms that resolved then suddenly worsened will treat for strep. Although did rec waiting 24-48 hours to see if any improvement off abx Candidiasis, vagina 12/11/2017 09/23/19 Encounters Date Type Department Care Team Description 09/30/2024 Scan [facility] Scanned, Doc Med Group 09/30/2024 MyChart Message Enc [address] [place] [address] Elise Pemberton NP Gastro followup 09/29/2024 Orders Only [address] [place] [address] Elise Pemberton NP 09/28/2024 MyChart Message Enc [address] [place], [place] [address] Elise Pemberton NP Thrush 09/23/2024 12:40 PM CHIEF ENGINEER RESEARCH Office Visit [address] [place], [place] [address] Elise Pemberton NP ER F/U (Patient presents to establish care (transfer Nicolette Mcduffie), ER follow up Diverticulitis); Annual 09/23/2024 MyChart Message Enc [address] [place] [address] Elise Pemberton NP Medication refill 09/23/2024 Travel 09/21/2024 Telephone [place] [id number] [facility] [address] [place], [place] [address] Elise Pemberton NP Follow Up Call 09/18/2024 Scan [facility] INFO SRVCS Scanned, Doc Med Group CT (SCAN); Lab (SCAN) from Last 3 Months Immunizations Immunization Administration Dates Next Due DT (Generic) 10/26/2012 Dt (1-<7 Y.O.) 10/26/2012 Influenza Adult (Generic) 05/23/2018,05/23/2016 Tdap (Adacel) 01/25/2023 Family History Medical History Relation Comments Diverticulitis Father Cancer Paternal Grandfather Colon Cancer Paternal Grandfather None Neg Hx Relation Status Comments Father Alive Mother Alive Paternal Grandfather Social History Tobacco Use Types Packs/Day Years Used Date Smoking Tobacco: Never Passive Smoke Exposure: Never Smokeless Tobacco: Never Tobacco Cessation:Counseling Given: No Alcohol Use Standard Drinks/Week Comments Yes 0 (1 standard drink = 0.6 oz pur e alcohol) once every few months PHQ-2 Answer Date Recorded Patient Health Questionnaire-2 Score 0 09/23/2024 Education Answer Date Recorded What is the highest level of school you have completed or the highest degree you have received? 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 Not on file Not on file Not on file Last Filed Vital Signs Vital Sign Reading Time Taken Comments Blood Pressure 128/82 09/23/2024 12:36 PM CHIEF ENGINEER RESEARCH Pulse 78 09/23/2024 12:36 PM CHIEF ENGINEER RESEARCH Temperature 36.6 C (97.8 F) 09/23/2024 12:36 PM CHIEF ENGINEER RESEARCH Respiratory Rate 16 09/23/2024 12:36 PM CHIEF ENGINEER RESEARCH Oxygen Saturation 99% 09/23/2024 12:36 PM CHIEF ENGINEER RESEARCH Inhaled Oxygen Concentration - - Weight 60.8 kg (134 lb) 09/23/2024 12:36 PM CHIEF ENGINEER RESEARCH Height 157.5 cm (5' 2 ) 09/23/2024 12:36 PM CHIEF ENGINEER RESEARCH Body Mass Index 24.51 09/23/2024 12:36 PM CHIEF ENGINEER RESEARCH Plan of Treatment Health Maintenance Due Date Last Done Comments Pneumococcal Vaccine: Pediatrics (0 to 5 Years) and At-Risk Patients (6 to 49 Years) (1 of 2 - PCV) 1993 Hepatitis C 2005 Hepatitis B Vaccines (1 of 3 - 19+ 3-dose series) 2006 Cervical Cancer Screening Pap with HPV Testing (Age 30 to 64) Every 5 Years 2017 COVID-19 Vaccine ( season) 2024 Cervical Cancer Screening Pap Smear (Age 30 to 64) Every 3 Years 01/24/2025 01/24/2022, 08/21/2018 Cervical Cancer Screening with HPV 01/24/2025 Annual Physical 09/23/2025 09/23/2024, 01/05, 01/19/2021, Additional history exists DTaP, Tdap and Td Vaccines (2 - Td or Tdap) 01/25/2033 01/25/2023, 10/26/2012, 10/26/2012 PHQ-2 (Physician Ranger) Completed 09/23/2024 HPV Vaccines Aged Out No longer eligi ble based on patient's age to complete this topic Meningococcal B Vaccine Aged Out No l onger eligible based on patient's age to complete this topic Meningococcal Vaccine Aged Out No braxton riccardo eligible based on patient's age to complete this topic RSV Immunizations Under 20 Months Aged Out No longer eligible based on patient's age to complete this topic Procedures Procedure Name Priority Date/Time Associated Diagnosis Comments CT GENERIC 09/18/2024 OUTSIDE LAB (SCAN ORDER) 09/18/2024 OUTSIDE LAB (SCAN ORDER) 09/18/2024 OUTSIDE LAB (SCAN ORDER) 09/18/2024 CYTOPATH CERV/VAG THIN LAYER Routine 01/24/2022 9:03 AM CDT Visit for routine strip cutting machine operator exam from Last 3 Months or Most Recently Relevant to Health Maintenance Results * CT GENERIC (09/18/2024) Anatomical Region Laterality Modality Other 09/18/2024 [facility] Scanned SCANNING Final Resu lt * OUTSIDE LAB (SCAN ORDER) (09/18/2024) Only the most recent of3 resultswithin the time period is included. 09/18/2024 [facility] Scanned SCANNING Final Resu lt * Cytopath Cerv/Vag Thin Layer (01/24/2022 9:03 AM CDT) CLINICAL INFORMATION: Information not provided [facility] Clinical Information: UNKNOWN [facility] Date of Last Pap INFORMATION NOT PROVIDED [facility] Previous Biopsy? INFORMATION NOT PROVIDED [facility] SOURCE (QST) Cervix, Endocervix [facility] STATEMENT OF ADEQUACY: [facility] Comment: Satisfactory for evaluation. Endocervical/transformation zone component present. Age and/or menstrual status not provided PAP INTERPRETATION/RESU LTS Negative for intraepithelial lesion or malignancy. [facility] BELL CLEANER Que [facility] Comment: KMS, CT(ASCP) CT Screening location: [place] [address] Administration KAY [place] [id number] COMMENT: [facility] Comment: EXPLANATORY NOTE: The Pap is [...] Houston MD PATHOLOGY/CYTOLOGY ORDERABLE S Final Result [facility] [place] [address] Administration [place] [phone] from Last 3 Months or Most Recently Relevant to Health Maintenance Insurance [facility] Care Teams Lead Front Desk Agent Relationship Specialty Start Date End Date Elise Pemberton NP [address] [place] [address] PCP - General NURSE PRACTITIONER 09/23/24
--- OUTSIDE RECORDS SUMMARY | 2024-11-20 01:03 | XMS_ITS | Encounter Summary ---
Author Organization [facility] Address [facility] [place] [address] Care Team Providers Care Contract Serviceman Name Role Phone Abigail Houston MD Primary Care Provider [phone] Fe Wright APRN Primary Care Provider [phone] Elise Pemberton NP Primary Care Provider [phone] Elise Pemberton COREMAKING MACHINE SETTER Primary Care Provider [phone] Encounter Details Date Type Department Care Team (Late st Contact Info) Description 12/10/2021 [employer] Message Enc [facility] Medical Group Family & Internal Medicine [facility] [address] [place] [address] Abig[place] Houston [place] [id number] [place] [address] [phone] control refill Social History Tobacco Use Types [...] Sex Assigned at Female 09/23/2024 8:11 AM MID LEVEL GAME DESIGNER Legal Sex Female 8:25 PM CDT Gender Identity Female 09/23/2024 8:11 AM MID LEVEL GAME DESIGNER Sexual Orientation Straight 09/23/2024 8: 11 AM MID LEVEL GAME DESIGNER 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 Not on file Not on file Not on file documented as of this encounter Plan of Treatment Not on file documented as of this encounter Visit Diagnoses Not on filedocumented in this encounter Additional Health Concerns Infection Onset Date Last Indicated Resolved Time COVID-19 Rule Out 08/02/2022 08/02/2022 08/02/2022 9:50 AM MID LEVEL GAME DESIGNER COVID-19 Confirmed 08/02/2022 08/02/2022 12:32 AM MID LEVEL GAME DESIGNER Assessment Noted Time PHQ-9 Depression Total Score: 0 12/19/19 19 3:40 PM CDT documented as of this encounter Care Teams Contract Serviceman Relationship Specialty Start Date End Date Abigail Houston MD PCP - General INTERNAL MEDICINE 08/19/18 12/03/22 Fe Wright APRN [address] [address] PCP - General NURSE PRACTITIONER 12/04/22 01/23/23 Elise Pemberton NP [address] [place] [address] PCP - General NURSE PRACTITIONER 09/23/24 Elise Pemberton NP [address] [place] [address] PCP - General NURSE PRACTITIONER 09/21/24 09/22/24 documented as of this encounter
--- OUTSIDE RECORDS SUMMARY | 2024-11-20 01:03 | XMS_ITS | Encounter Summary ---
Author Organization [facility] Address [facility] [place] [address] Care Team Providers Care Knifeman Name Role Phone Abigail Houston MD Primary Care Provider [phone] Fe Wright APRN Primary Care Provider + [phone] Elise Pemberton NP Primary Care Provider [phone] Elise Pemberton DELPHI DEVELOPER Primary Care Provider [phone] Encounter Details Date Type Department Care Team (Late st Contact Info) Description 07/11/2022 Packbackt Message Enc [facility] Medical Group Family & Internal Medicine [facility] [address] [place] [address] Abigail Houston [place] [id number] [place] [phone] Cold Social History Tobacco Use Types Packs/Day [...] Sex Assigned at Female 09/23/2024 8:11 AM MANAGER ACCOUNT MANAGEMENT Legal Sex Female 8:25 PM CDT Gender Identity Female 09/23/2024 8:11 AM MANAGER ACCOUNT MANAGEMENT Sexual Orientation Straight 09/23/2024 8: 11 AM MANAGER ACCOUNT MANAGEMENT 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 No / Unsure 07/12/2022 7:05 AM MANAGER ACCOUNT MANAGEMENT documented as of this encounter Plan of Treatment Not on file documented as of this encounter Visit Diagnoses Not on filedocumented in this encounter Additional Health Concerns Infection Onset Date Last Indicated Resolved Time COVID-19 Rule Out 08/02/2022 08/02/2022 08/02/2022 9:50 AM MANAGER ACCOUNT MANAGEMENT COVID-19 Confirmed 08/02/2022 08/02/2022 12:32 AM MANAGER ACCOUNT MANAGEMENT Assessment Noted Time PHQ-9 Depression Total Score: 0 01/25/20 22 8:02 AM CDT documented as of this encounter Care Teams Knifeman Relationship Specialty Start Date End Date Abigail Houston MD PCP - General INTERNAL MEDICINE 08/19/18 12/03/22 Fe Wright APRN [address] [address] PCP - General NURSE PRACTITIONER 12/04/22 01/23/23 Elise Pemberton NP [address] [place] [address] PCP - General NURSE PRACTITIONER 09/23/24 Elise Pemberton NP [address] [place] [address] PCP - General NURSE PRACTITIONER 09/21/24 09/22/24 documented as of this encounter
--- OUTSIDE RECORDS SUMMARY | 2024-11-20 01:03 | XMS_ITS | Encounter Summary ---
Author Organization [facility] Address [facility] [place] [address] Care Team Providers Care Automat Car Attendant Name Role Phone Abigail Houston MD Primary Care Provider [phone] Fe Wright APRN Primary Care Provider [phone] Elise Pemberton NP Primary Care Provider [phone] Elise Pemberton GAS DISPENSER Primary Care Provider [phone] Encounter Details Date Type Department Care Team (Late st Contact Info) Description 09/05/2020 Corrigot Message Enc [facility] Medical Group Family & Internal Medicine [facility] [address] [place] [address] Germaine Cirstina FNP [address] [id number] RE: Test Results Social History Tobacco Use [...] Sex Assigned at Female 09/23/2024 8:11 AM TRAUMA PROGRAM MANAGER Legal Sex Female 8:25 PM CDT Gender Identity Female 09/23/2024 8:11 AM TRAUMA PROGRAM MANAGER Sexual Orientation Straight 09/23/2024 8: 11 AM TRAUMA PROGRAM MANAGER 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 No / Unsure 08/23/2020 12:21 PM TRAUMA PROGRAM MANAGER documented as of this encounter Plan of Treatment Not on file documented as of this encounter Visit Diagnoses Not on filedocumented in this encounter Additional Health Concerns Infection Onset Date Last Indicated Resolved Time COVID-19 Rule Out 08/02/2022 08/02/2022 08/02/2022 9:50 AM TRAUMA PROGRAM MANAGER COVID-19 Confirmed 08/02/2022 08/02/2022 12:32 AM TRAUMA PROGRAM MANAGER Assessment Noted Time PHQ-9 Depression Total Score: 0 12/19/19 19 3:40 PM CDT documented as of this encounter Care Teams Automat Car Attendant Relationship Specialty Start Date End Date Abigail Houston MD PCP - General INTERNAL MEDICINE 08/19/18 12/03/22 Fe Wright APRN [address] [address] PCP - General NURSE PRACTITIONER 12/04/22 01/23/23 Elise Pemberton NP [address] [place] [address] PCP - General NURSE PRACTITIONER 09/23/24 Elise Pemberton NP [address] [place] [address] PCP - General NURSE PRACTITIONER 09/21/24 09/22/24 documented as of this encounter
--- OUTSIDE RECORDS SUMMARY | 2024-11-20 01:03 | XMS_ITS | Encounter Summary ---
Author Organization [facility] Address [facility] [place] [address] Care Team Providers Care Decay Control Operator Name Role Phone Abigail Houston MD Primary Care Provider [phone] Fe Wright APRN Primary Care Provider + [phone] Elise Pemberton NP Primary Care Provider [phone] Elise Pemberton MESH CUTTER Primary Care Provider [phone] [phone] Encounter Details Date Type Department Care Team (Late st Contact Info) Description 08/07/2022 ITegrist Message Enc [facility] Medical Group Family & Internal Medicine 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 Yes 08/02/2022 9:15 AM GARDE MANAGER documented as of this encounter Plan of Treatment Not on file documented as of this encounter Visit Diagnoses Not on filedocumented in this encounter Additional Health Concerns Infection Onset Date Last Indicated Resolved Time COVID-19 Confirmed 08/02/2022 08/02/2022 12:32 AM GARDE MANAGER Assessment Noted Time PHQ-9 Depression Total Score: 0 01/25/20 8:02 AM CDT documented as of this encounter Care Teams Decay Control Operator Relationship Specialty Start Date End Date Abigail Houston MD PCP - General INTERNAL MEDICINE 08/19/18 12/03/22 Fe Wright APRN [address] [facility] [address] [place] [address] PCP - General NURSE PRACTITIONER 12/04/22 01/23/23 Elise Pemberton NP [address] [place], [place] [address] PCP - General NURSE PRACTITIONER 09/23/24 Elise Pemberton NP [address] [place] [address] PCP - General NURSE PRACTITIONER 09/21/24 09/22/24 documented as of this encounter
--- OUTSIDE RECORDS SUMMARY | 2024-11-20 01:03 | XMS_ITS | Encounter Summary ---
Author Organization [facility] Address [address] [place] [address] Care Team Providers Care Grinder Set Up Operator Jig Name Role Phone Abigail Houston MD Primary Care Provider Fe Wright APRN Primary Care Provider [phone] Elise Pemberton NP Primary Care Provider [phone] Elise Pemberton CHOPPER OPERATOR Primary Care Provider [phone] Encounter Details Date Type Department Care Team (Late st Contact Info) Description 11/29/2015 Abstract [facility] CONVERSION [address] [place] [address] , Generic ConversionMD Social History Tobacco Use Types Packs/Day Years Used Date Smoking Tobacco: Never Assessed Comments Unknown Sex and Gender Information Value Date Recorded Sex Assigned at Female 09/23/2024 8:11 AM GUEST SERVICE HOST Legal Sex Female 8:25 PM CDT Gender Identity Female 09/23/2024 8:11 AM GUEST SERVICE HOST Sexual Orientation Straight 09/23/2024 8: 11 AM GUEST SERVICE HOST documented as of this encounter Plan of Treatment Not on file documented as of this encounter Visit Diagnoses Not on filedocumented in this encounter Additional Health Concerns Infection Onset Date Last Indicated Resolved Time COVID-19 Rule Out 08/02/2022 08/02/2022 08/02/2022 9:50 AM GUEST SERVICE HOST COVID-19 Confirmed 08/02/2022 08/02/2022 12:32 AM GUEST SERVICE HOST documented as of this encounter Care Teams Grinder Set Up Operator Jig Relationship Specialty Start Date End Date Abigail Houston MD PCP - General INTERNAL MEDICINE 08/19/18 12/03/22 Fe Wright APRN [address] [facility] [address] [place] [address] PCP - General NURSE PRACTITIONER 12/04/22 01/23/23 Elise Pemberton NP [address] [place], [place] [address] PCP - General NURSE PRACTITIONER 09/23/24 Elise Pemberton NP [address] [place], [place] [address] PCP - General NURSE PRACTITIONER 09/21/24 09/22/24 documented as of this encounter
--- OUTSIDE RECORDS SUMMARY | 2024-11-20 01:03 | XMS_ITS | Referral Summary ---
Author Organization [facility] [address] Address [address] [place] [address] Care Team Providers Care Cargo Service Agent Name Role Phone Nicolette Mcduffie Primary Care Provider [phone] Encounters Date Type Department Care Team Description 10/20/2024 Telephone [facility] General Neurology [address] [facility] 6th [address] [place] [address] Srinivasan Kinney RN from Last 3 Months Allergies Active Allergy Reactions Criticality Noted Date Comments Amoxicillin-Pot Clavulanate Rash Medium 03/28/20 23 Medications albuterol (PROAIR RESPICLICK) 90 mcg/actuation inhaler Inhale 2 puffs as needed for wheezing Active rizatriptan BACK TACKER (MAXALT-BACK TACKER) 5 mg disintegrating tabletIndications:M igraine Take 1 [...] Plan of Treatment Not on file Insurance [employer] Address: [address] [place] [address] [employer] Care Teams Cargo Service Agent Relationship Specialty Start [place] [address] [address] PCP - General Physician Mechanical Systems Control Engineer 09/20/23
--- OUTSIDE RECORDS SUMMARY | 2024-11-20 01:03 | XMS_ITS | Encounter Summary ---
Author Organization [facility] Address [address] [place] [address] Care Team Providers Care Search Optimization Analyst Name Role Phone Elise Pemberton RUST PROOFER Primary Care Provider [phone] Encounter Details Date Type Department Care Team (Late st Contact Info) Description 09/23/2024 ELIKE Message Enc [facility] Family Medicine - [place] [address] [facility] [address] [place] [id number] Elise Pemberton, JABIER [address] [place] [address] Medication refill Social History Tobacco Use Types Packs/Day Years Used Date Smoking Tobacco: Never Passive Smoke Exposure: Never Smokeless Tobacco: Never Alcohol Use Standard [...] Sex Assigned at Female 09/23/2024 8:11 AM MIXING TANK OPERATOR Legal Sex Female 8:25 PM CDT Gender Identity Female 09/23/2024 8:11 AM MIXING TANK OPERATOR Sexual Orientation Straight 09/23/2024 8: 11 AM MIXING TANK OPERATOR 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 Question Answer Date of Assessment Author Status Little interest or pleasure in doing things Not at all 09/23/2024 12:35 PM Amy Ribeiro MA Act geovanna Feeling down, depressed, or hopeless Not at all 09/23/2024 12:35 PM Amy Ribeiro MA Active Patient Health Questionnaire-2 Score 0 09/23/2024 12:35 PM Amy Ribeiro MA Active documented as of this encounter Plan of Treatment Not on file documented as of this encounter Visit Diagnoses Not on filedocumented in this encounter Additional Health Concerns Assessment Noted Time PHQ-9 Depression Total Score: 0 01/09/20 24 2:10 PM CDT documented as of this encounter Care Teams Search Optimization Analyst Relationship Specialty Start Date End Date Elise Pemberton NP [address] [place] [address] PCP - General NURSE PRACTITIONER 09/23/24 documented as of this encounter
--- OUTSIDE RECORDS SUMMARY | 2024-11-20 01:03 | XMS_ITS | Encounter Summary ---
Author Organization [facility] Address [address] [place] [address] Care Team Providers Care Circular Tank Cooper Name Role Phone Abigail Houston MD Primary Care Provider [phone] Fe Wright APRN Primary Care Provider [phone] Elise Pemberton NP Primary Care Provider [phone] Elise Pemberton NP Primary Care Provider [phone] Encounter Details Date Type Department Care Team (Late st Contact Info) Description 12/10/2021 Accentt Message Enc [facility] Medical Group Family & Internal Medicine [address] [address] Kaylen Billings NP Control Refill - Viorelle Social History Tobacco [...] Sex Assigned at Female 09/23/2024 8:11 AM MECHANICAL CAD DESIGNER Legal Sex Female 8:25 PM CDT Gender Identity Female 09/23/2024 8:11 AM MECHANICAL CAD DESIGNER Sexual Orientation Straight 09/23/2024 8: 11 AM MECHANICAL CAD DESIGNER 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 file Not on file Not on file documented as of this encounter Plan of Treatment Not on file documented as of this encounter Visit Diagnoses Not on filedocumented in this encounter Additional Health Concerns Infection Onset Date Last Indicated Resolved Time COVID-19 Rule Out 08/02/2022 08/02/2022 08/02/2022 9:50 AM MECHANICAL CAD DESIGNER COVID-19 Confirmed 08/02/2022 08/02/2022 12:32 AM MECHANICAL CAD DESIGNER Assessment Noted Time PHQ-9 Depression Total Score: 0 12/19/19 3:40 PM CDT documented as of this encounter Care Teams Circular Tank Cooper Relationship Specialty Start Date End Date Abigail Houston MD PCP - General INTERNAL MEDICINE 08/19/18 12/03/22 Fe Wright APRN [address] [address] PCP - General NURSE PRACTITIONER 12/04/22 01/23/23 Elise Pemberton NP [address] [place] [address] PCP - General NURSE PRACTITIONER 09/23/24 Elise Pemberton NP [address] [place] [address] PCP - General NURSE PRACTITIONER 09/21/24 09/22/24 documented as of this encounter
--- OUTSIDE RECORDS SUMMARY | 2024-11-20 01:03 | XMS_ITS | Encounter Summary ---
Author Organization [facility] Address [address] [place] [address] Care Team Providers Care Assistant Dean Of Students Name Role Phone Elise Pemberton MACHINE MARKER Primary Care Provider [phone] Encounter Details Date Type Department Care Team (Late st Contact Info) Description 09/30/2024 fitmobt Message Enc [facility] Medical Group Family Medicine - [place] [address] [facility] [address] [place] [phone] Elise Pemberton, JABIER [address] [place] [address] Gastro followup Social History Tobacco Use Types Packs/Day Years [...] Sex Assigned at Female 09/23/2024 8:11 AM ELECTRIC METER INSTALLER Legal Sex Female 8:25 PM CDT Gender Identity Female 09/23/2024 8:11 AM ELECTRIC METER INSTALLER Sexual Orientation Straight 09/23/2024 8: 11 AM ELECTRIC METER INSTALLER 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
--- OUTSIDE RECORDS SUMMARY | 2024-11-20 01:03 | XMS_ITS | Encounter Summary ---
Author Organization [facility] Address [address] [place] [address] Care Team Providers Care Relay Assembler Name Role Phone Fe Wright APRN Primary Care Provider [phone] Elise Pemberton TREASURY ANALYST Primary Care Provider [phone] Elise Pemberton TREASURY ANALYST Primary Care Provider [phone] Encounter Details Date Type Department Care Team (Late st Contact Info) Description 12/05/2022 Vhoto Message Enc [facility] Medical Group Family & Internal Medicine [address] [address] [facility] Provider Clonazepam Social History Tobacco Use Types [...] Sex Assigned at Female 09/23/2024 8:11 AM CODING TECHNICIAN Legal Sex Female 8:25 PM CDT Gender Identity Female 09/23/2024 8:11 AM CODING TECHNICIAN Sexual Orientation Straight 09/23/2024 8: 11 AM CODING TECHNICIAN 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 Not on file Not on file documented as of this encounter Plan of Treatment Not on file documented as of this encounter Visit Diagnoses Not on filedocumented in this encounter Additional Health Concerns Assessment Noted Time PHQ-9 Depression Total Score: 0 09/05/19 4:02 PM CODING TECHNICIAN documented as of this encounter Care Teams Relay Assembler Relationship Specialty Start Date End Date Fe Wright APRN [address] [facility] [address] [place] [address] PCP - General NURSE PRACTITIONER 12/04/22 01/23/23 Elise Pemberton NP [address] [place] [address] PCP - General NURSE PRACTITIONER 09/23/24 Elise Pemberton NP [address] [place] [address] PCP - General NURSE PRACTITIONER 09/21/24 09/22/24 documented as of this encounter
--- OUTSIDE RECORDS SUMMARY | 2024-11-20 01:03 | XMS_ITS | Encounter Summary ---
Author Organization [facility] Address [address] [place] [address] Care Team Providers Care Hip Hop Performers Name Role Phone Elise Pemberton KEYSEATING MACHINE SET UP OPERATOR Primary Care Provider [phone] Elise Pemberton KEYSEATING MACHINE SET UP OPERATOR Primary Care Provider [phone] Encounter Details Date Type Department Care Team (Late st Contact Info) Description 01/30/2023 Blue Spark Technologiest Message Enc [facility] Family & Internal Medicine [facility] [address] [place] [address] Nicolette Mcduffie PAFinn [address] [place] [address] Clonazepam Social History Tobacco Use Types Packs/Day [...] Sex Assigned at Female 09/23/2024 8:11 AM DIRECTOR CLINICAL PHARMACOLOGY Legal Sex Female 8:25 PM CDT Gender Identity Female 09/23/2024 8:11 AM DIRECTOR CLINICAL PHARMACOLOGY Sexual Orientation Straight 09/23/2024 8: 11 AM DIRECTOR CLINICAL PHARMACOLOGY Occupation Industry Job Start Date Job End Date [employer] Not on file Not on file Not [...] Total Score: 0 09/05/19 23 4:02 PM DIRECTOR CLINICAL PHARMACOLOGY documented as of this encounter Care Teams Hip Hop Performers Relationship Specialty Start Date End Date Elise Pemberton NP [address] [place] [address] PCP - General NURSE PRACTITIONER 09/23/24 Elise Pemberton NP [address] [place] [address] PCP - General NURSE PRACTITIONER 09/21/24 09/22/24 documented as of this encounter
[2024-11-20 10:31] VITALS: BP 135/83; PULSE 88; RESP 16; TEMP 36.6; O2SAT 98
--- NOTE | 2024-11-20 10:38 | P.PNAN_ITS ---
Anes - Eval Pre Procedure Procedure: Operation Date: 11/20/24 12:30 Proposed Procedures p Suction Dilation and Curettage - Arpit Menon MD Date/Time: 11/20/24 10:38 Surgeon: Sinan Pre Op Diagnosis: Missed AB Patient Data Age: 39 Gender: F Height: 1.57 m Weight: 59 kg Allergies Allergy/AdvReac Type Severity Reaction Status Date / Time amoxicillin (From Augmentin) Allergy Rash Verified 11/18/24 15:42 clavulanic acid (From Allergy Rash Verified 11/18/24 15:42 Augmentin) Home Medications ?Medication ?Instructions ?Recorded ?Confirmed ?Type rizatriptan 5 mg tablet 5 mg PO PRN PRN Migraine Headache 06/18/19 11/18/24 History albuterol sulfate 90 mcg/actuation 1 inh inhalation Q4-6H PRN 09/30/24 11/18/24 History breath activated powder shortness of breath or wheezing inhaler,sensor vit no.95-ferrous 1 tablet PO DAILY 11/18/24 11/18/24 History fumarate 28 mg-folic acid 800 mcg tablet ( Multivitamins) Patient hx anesthesia problems: none Family hx anesthesia problems: none Results Review: All pre-operative results and documents have been reviewed as part of the pre- operative evaluation. PMFSH Past Medical History Medical History (Updated 11/20/24 @ 10:39 by Zach Santoyo Jr., CRNA) LLQ pain Anxiety Migraine Surgical History Surgical History No history of previous surgery Social History Social History Smoking status: Never smoker Alcohol intake: never Alcohol use details: Social Substance use: never Substance use type: does not use Living arrangements: with family Gender identity (if verbalized by the patient): Female Exam Day of Procedure 11/20/24 10:38 Patient weight: normal
[2024-11-20] MEDS: ACETAMINOPHEN 500 MG TABLET 1000 MG PO (11:05)
[2024-11-20] MEDS: LACTATED RINGERS 1,000 ML 30 ML IV CONT (11:10)
--- NOTE | 2024-11-20 12:25 | PM.IMHP ---
H&P: HPI History of Present Illness Date/Time: 11/20/24 12:25 Chief Complaint: Miscarriage Narrative: 39 y/o G1 with LMP 09/10/24, putting her at 9w6d gestation. She had an early ultrasound which confirmed the dating, she says. Then she had a subsequent ultrasound reportedly showing an empty sac. On 11/18/24 an ultrasound exam in our office showed a swann IUP with CRL only 10 mm (c/w 7w1d), with no cardiac motion. She has had no bleeding. Review of Systems Review of Systems: All systems reviewed & are unremarkable except as noted in HPI and below PMFSH Past Medical History Medical History (Updated 11/20/24 @ 12:43 by Arpit Menon MD) History of asthma LLQ pain Anxiety Migraine Surgical History Surgical History (Updated 11/20/24 @ 12:43 by Arpit Menon MD) History of inguinal hernia repair, bilateral History of wisdom tooth extraction No history of previous surgery Social History Social History Smoking status: Never smoker Alcohol intake: never Alcohol use details: Social Substance use: never Substance use type: does not use Living arrangements: with family Gender identity (if verbalized by the patient): Female Meds Home Medications and Allergies Home Medications ?Medication ?Instructions ?Recorded ?Confirmed ?Type rizatriptan 5 mg tablet 5 mg PO PRN PRN Migraine Headache 06/18/19 11/18/24 History albuterol sulfate 90 mcg/actuation 1 inh inhalation Q4-6H PRN 09/30/24 11/20/24 History breath activated powder shortness of breath or wheezing inhaler,sensor vit no.95-ferrous 1 tablet PO DAILY 11/18/24 11/20/24 History fumarate 28 mg-folic acid 800 mcg tablet ( Multivitamins) Allergies Allergy/AdvReac Type Severity Reaction Status Date / Time amoxicillin (From Augmentin) Allergy Rash Verified 11/20/24 11:06 clavulanic acid (From Allergy Rash Verified 11/20/24 11:06 Augmentin) Vital Signs Vital Signs - 24 hr 11/20/24 10:31 Temperature 36.6 C Pulse Rate 88 Respiratory Rate 16 Blood Pressure 135/83 Pulse Oximetry 98 Oxygen Delivery Room Air Exam Const: Orientation/consciousness: patient oriented x3 Other: Well-developed, well-nourished female in no acute distress. Neck: Thyroid: thyroid normal Lymphatic: no lymphadenopathy noted (in neck, axilla or inguinal nodes) Resp: Effort & Inspection: normal respiratory effort Auscultation: clear to auscultation bilaterally Cardio: Rate: regular rate Rhythm: regular rhythm Heart sounds: S1 normal heart sound present and S2 normal heart sound present GI: Other: ABD: Soft, nontender, nondistended. No guarding or rebound tenderness. No hepatosplenomegaly. : General: Yes no CVA tenderness Other: External genitalia: normal female hair distribution, without lesion. Urethral meatus: no lesion, non prolapsed. Bladder: no mass, nontender Vagina: well-estrogenized, without lesion or discharge. No cystocele or rectocele. Cervix: no lesion or discharge. Uterus: small, anteverted, freely mobile, nontender Adnexa: no mass or tenderness. Anus/perineum: no lesions, nontender Back/Spine/Pelvis: Back: no CVA tenderness Skin: General skin exam: normal color and no rashes or lesions noted Neuro: General: patient oriented x3 Extrem: Other: Extremities: nontender with no edema Psych: Mental Status: mental status grossly normal Affect: normal affect Assessment and Plan Assessment and plan (1) Missed ab: Code(s): O02.1 - Missed Status: Acute Assessment and Plan: A: Missed SAB. P: Offered medical as well as surgical management, and she prefers the latter. Specifically, I have offered her a dilation and suction curettage. She understands risks of surgery to include risks of anesthesia, risks of pain, infection, bleeding, blood products, thromboembolic phenomena and damage to adjacent structures such as bowel, bladder, ureters, blood vessels and nerves. She understands all these risks and elects to proceed with surgery.
--- NOTE | 2024-11-20 12:35 | P.PNAN_ITS ---
Anes - Eval Final PreProcedure Day of Procedure 11/20/24 12:35 Patient weight: normal Heart: regular rate and rhythm Lungs: clear to auscultation Airway: Mallampati scale class II Neurological: alert and oriented Last oral intake: >/= 8 hours ASA classification: II Emergent: no Anesthetic plan: proceed Anesthesia type and monitoring: general GIVS and standard monitoring Results Review: All pre-operative results and documents have been reviewed as part of the pre- operative evaluation. Informed Consent: The patient's anesthetic plan and its attendant risks and benefits were discussed with the patient/family/POA. Questions were solicited and answers provided to the satisfaction of the patient/family/POA.
--- NOTE | 2024-11-20 12:43 | WPDHPUPDATE1 ---
History and Physical Update Update Date/Time: 11/20/24 12:43 History and Physical has been reviewed, including an updated exam of the patient. There are NO changes in the patient's condition. Risks, benefits, and alternatives have been discussed and questions answered. Patient agrees to proceed with procedure.
[2024-11-20] MEDS: LIDOCAINE 1% LOCAL INJ 10 ML VIAL INFILTRATE (12:56)
[2024-11-20 13:14] VITALS: BP 101/77; PULSE 95; RESP 20; O2SAT 98
--- NOTE | 2024-11-20 13:14 | W.PM.PROC2 ---
Procedure Note - Detailed Date of Procedure 11/20/24 Pre-op Diagnosis Missed SAB Post-op Diagnosis Same Procedure Performed Dilation and suction curettage Surgeon Arpit Menon MD Anesthesia MAC and Local (1% lidocaine) Findings Products of conception Description of Procedure The patient was taken to the operating room where she was prepared and draped in the usual sterile fashion in the dorsal lithotomy position. The bladder was drained with a red rubber catheter. A sterile speculum was placed into the vagina. The anterior lip of the cervix was grasped with a single-tooth tenaculum. Ten mL of 1% lidocaine was administered in a paracervical block. The cervix was gently dilated using Hegar dilators until a 7 mm dilator could be passed. The 8mm curved tip suction curette was advanced. Suction curettage was performed and products of conception were aspirated. Sharp curettage was then performed until a good uterine cry was noted. A final pass with the suction curette was made. The tenaculum was removed. Bleeding at the tenaculum site was controlled with two interrupted figure of eight sutures of 2-0 Vicryl. Hemostasis was excellent. Sponge, lap, needle and instrument counts were correct. The patient was taken to the recovery room in stable condition. I was present and scrubbed for the entire procedure. Estimated Blood Loss 20 Drains No Packing No Pathology Yes (Endometrial curettings) Complications None Condition Stable Disposition PACU
[2024-11-20 13:40] VITALS: BP 107/70; PULSE 86; RESP 17; O2SAT 98
[2024-11-20 14:00] VITALS: BP 123/80; PULSE 81; RESP 16
[2024-11-20 14:22] VITALS: BP 121/76; PULSE 75; RESP 15
== END 2024-11-20 14:33 | disposition home or self-care (01) ==
PROVIDERS: PCP Nurse Practitioner; Visit Provider Obstetrics & Gynecology
PROC: (CPT 59820; principal; 2024-11-20 12:30)
DX: O02.1 Missed abortion (principal)
CPT/HCPCS: 59820; 36415; 85461; 86850; 86900; 86901; 88305; A9270; J2003; J2250; J2704; J3010; J7120

== ENCOUNTER 2024-11-28 02:47 | Emergency (ER) | payer BC, SELFPAY ==
--- OUTSIDE RECORDS SUMMARY | 2024-11-28 02:49 | XMS_ITS | Encounter Summary ---
Author Organization [facility] Address [address] [place] [address] Care Team Providers Care Personal Health Coach Name Role Phone Elise Pemberton SYSTEMS ACCOUNTANT Primary Care Provider +1 [phone] Encounter Details Date Type Department Care Team (Late st Contact Info) Description 09/23/2024 U Grok It - Smartphone RFID Message Enc [facility] Medical Group Family Medicine - [place] [address] [facility] [address] [place] [address] [phone] Elise Pemberton, JABIER [address] [place] [address] Medication refill Social History Tobacco Use Types [...] Sex Assigned at Female 09/23/2024 8:11 AM BASIC SCIENCES DEAN Legal Sex Female 8:25 PM CDT Gender Identity Female 09/23/2024 8:11 AM BASIC SCIENCES DEAN Sexual Orientation Straight 09/23/2024 8: 11 AM BASIC SCIENCES DEAN 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
--- OUTSIDE RECORDS SUMMARY | 2024-11-28 02:49 | XMS_ITS | Encounter Summary ---
Author Organization [facility] Address [facility] [place] [address] Care Team Providers Care Rn Clinical Coordinator Name Role Phone Abigail Houston MD Primary Care Provider [phone] Fe Wright APRN Primary Care Provider + [phone] Elise Pemberton NP Primary Care Provider +[phone] Elise Pemberton FACILITY SECURITY OFFICER Primary Care Provider +1 [phone] Encounter Details Date Type Department Care Team (Late st Contact Info) Description 12/10/2021 Animal Innovationst Message Enc [facility] Medical Group Family & Internal Medicine [facility] [address] [place] [address] [place] Houston [place] [id number] [place] [address] [phone] control refill Social History Tobacco Use Types [...] Sex Assigned at Female 09/23/2024 8:11 AM EQUINE DENTIST Legal Sex Female 8:25 PM CDT Gender Identity Female 09/23/2024 8:11 AM EQUINE DENTIST Sexual Orientation Straight 09/23/2024 8: 11 AM EQUINE DENTIST 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 on file Not on file Not on file documented as of this encounter Plan of Treatment Not on file documented as of this encounter Visit Diagnoses Not on filedocumented in this encounter Additional Health Concerns Infection Onset Date Last Indicated Resolved Time COVID-19 Rule Out 08/02/2022 08/02/2022 08/02/2022 9:50 AM EQUINE DENTIST COVID-19 Confirmed 08/02/2022 08/02/2022 12:32 AM EQUINE DENTIST Assessment Noted Time PHQ-9 Depression Total Score: 0 12/19/19 19 3:40 PM CDT documented as of this encounter Care Teams Rn Clinical Coordinator Relationship Specialty Start Date End Date Abigail Houston MD PCP - General INTERNAL MEDICINE 08/19/18 12/03/22 Fe Wright APRN [address] [address] PCP - General NURSE PRACTITIONER 12/04/22 01/23/23 Elise Pemberton NP [address] [place] [address] PCP - General NURSE PRACTITIONER 09/23/24 Elise Pemberton NP [address] [place] [address] PCP - General NURSE PRACTITIONER 09/21/24 09/22/24 documented as of this encounter
--- OUTSIDE RECORDS SUMMARY | 2024-11-28 02:49 | XMS_ITS | Encounter Summary ---
Author Organization [facility] Address [address] [place] [address] Care Team Providers Care Psychiatric Np Name Role Phone Elise Pemberton CRIMINAL COURT JUDGE Primary Care Provider [phone] JUDGE Primary Care Provider +1 [phone] Encounter Details Date Type Department Care Team (Late st Contact Info) Description 01/31/2023 MyChart Message Enc [facility] Medical [facility] - [facility] [address] [place] [address] 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 Not on file Not on file Not on file documented as of this encounter Plan of Treatment Not on file documented as of this encounter Visit Diagnoses Not on filedocumented in this encounter Additional Health Concerns Assessment Noted Time PHQ-9 Depression Total Score: 0 09/05/19 23 4:02 PM MANAGER OF GLOBAL documented as of this encounter Care Teams Psychiatric Np Relationship Specialty Start Date End Date Elise Pemberton NP [address] [place] [address] PCP - General NURSE PRACTITIONER 09/23/24 Elise Pemberton NP [address] [place] [address] PCP - General NURSE PRACTITIONER 09/21/24 09/22/24 documented as of this encounter
--- OUTSIDE RECORDS SUMMARY | 2024-11-28 02:49 | XMS_ITS | Encounter Summary ---
Author Organization [facility] Address [address] [place] [address] Care Team Providers Care Soybean Grower Name Role Phone Abigail Houston MD Primary Care Provider [phone] Fe Wright APRN Primary Care Provider [phone] Elise Pemberton NP Primary Care Provider +1 [phone] Elise Pemberton STULL HEWER Primary Care Provider +1 [phone] Encounter Details Date Type Department Care Team (Late st Contact Info) Description 11/29/2015 Abstract [facility] CONVERSION [address] [place] [address] , Generic ConversionMD Social History Tobacco Use Types Packs/Day Years Used Date Smoking Tobacco: Never Assessed Comments Unknown Sex and Gender Information Value Date Recorded Sex Assigned at Female 09/23/2024 8:11 AM CORPORATE OPERATIONS COMPLIANCE MANAGER Legal Sex Female 8:25 PM CDT Gender Identity Female 09/23/2024 8:11 AM CORPORATE OPERATIONS COMPLIANCE MANAGER Sexual Orientation Straight 09/23/2024 8: 11 AM CORPORATE OPERATIONS COMPLIANCE MANAGER documented as of this encounter Plan of Treatment Not on file documented as of this encounter Visit Diagnoses Not on filedocumented in this encounter Additional Health Concerns Infection Onset Date Last Indicated Resolved Time COVID-19 Rule Out 08/02/2022 08/02/2022 08/02/2022 9:50 AM CORPORATE OPERATIONS COMPLIANCE MANAGER COVID-19 Confirmed 08/02/2022 08/02/2022 12:32 AM CORPORATE OPERATIONS COMPLIANCE MANAGER documented as of this encounter Care Teams Soybean Grower Relationship Specialty Start Date End Date Abigail Houston MD PCP - General INTERNAL MEDICINE 08/19/18 12/03/22 Fe Wright APRN [address] [facility] [address] [place] [address] PCP - General NURSE PRACTITIONER 12/04/22 01/23/23 Elise Pemberton NP [address] [place], [place] [address] PCP - General NURSE PRACTITIONER 09/23/24 Elise Pemberton NP [address] [place], [place] [address] PCP - General NURSE PRACTITIONER 09/21/24 09/22/24 documented as of this encounter
--- OUTSIDE RECORDS SUMMARY | 2024-11-28 02:49 | XMS_ITS | Encounter Summary ---
Author Organization [facility] Address [facility] [place] [address] Care Team Providers Care Charge Histotechnologist Name Role Phone Abigail Houston MD Primary Care Provider [phone] Fe Wright APRN Primary Care Provider + [phone] Elise Pemberton NP Primary Care Provider [phone] Elise Pemberton PIER WORKER Primary Care Provider +1 [phone] Encounter Details Date Type Department Care Team (Late st Contact Info) Description 08/07/2022 Zoovet Message Enc [facility] Medical Group Family & Internal Medicine [facility] [address] [place] [address] A[place]ail Houston [place] [address] [place] [address] [phone] Paxlovid Social History Tobacco Use Types Packs/Day [...] Sex Assigned at Female 09/23/2024 8:11 AM AUTO VINYL TOP INSTALLER Legal Sex Female 8:25 PM CDT Gender Identity Female 09/23/2024 8:11 AM AUTO VINYL TOP INSTALLER Sexual Orientation Straight 09/23/2024 8: 11 AM AUTO VINYL TOP INSTALLER 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 Yes 08/02/2022 9:15 AM AUTO VINYL TOP INSTALLER documented as of this encounter Plan of Treatment Not on file documented as of this encounter Visit Diagnoses Not on filedocumented in this encounter Additional Health Concerns Infection Onset Date Last Indicated Resolved Time COVID-19 Confirmed 08/02/2022 08/02/2022 12:32 AM AUTO VINYL TOP INSTALLER Assessment Noted Time PHQ-9 Depression Total Score: 0 01/25/20 8:02 AM CDT documented as of this encounter Care Teams Charge Histotechnologist Relationship Specialty Start Date End Date Abigail Houston MD PCP - General INTERNAL MEDICINE 08/19/18 12/03/22 Fe Wright APRN [address] [facility] [address] [place] [address] PCP - General NURSE PRACTITIONER 12/04/22 01/23/23 Elise Pemberton NP [address] [place], [place] [address] PCP - General NURSE PRACTITIONER 09/23/24 Elise Pemberton NP [address] [place] [address] PCP - General NURSE PRACTITIONER 09/21/24 09/22/24 documented as of this encounter
--- OUTSIDE RECORDS SUMMARY | 2024-11-28 02:49 | XMS_ITS | Encounter Summary ---
Author Organization [facility] Address [address] [place] [address] Care Team Providers Care Machine Wood Sander Name Role Phone Elise Pemberton AUTO GARAGE ATTENDANT Primary Care Provider [phone] Encounter Details Date Type Department Care Team (Late st Contact Info) Description 09/30/2024 Kwaabt Message Enc [facility] Medical Group Family Medicine - [place] [address] [facility] [address] [place] [address] [phone] Elise Pemberton, JABIER [address] [place] [address] [place] [address] Gastro followup Social History Tobacco Use Types [...] Sex Assigned at Female 09/23/2024 8:11 AM DISSOLVER OPERATOR Legal Sex Female 8:25 PM CDT Gender Identity Female 09/23/2024 8:11 AM DISSOLVER OPERATOR Sexual Orientation Straight 09/23/2024 8: 11 AM DISSOLVER OPERATOR 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
--- OUTSIDE RECORDS SUMMARY | 2024-11-28 02:49 | XMS_ITS | Encounter Summary ---
Author Organization [facility] Address [facility] [place] [address] Care Team Providers Care Loss Prevention Agent Name Role Phone Abigail Houston MD Primary Care Provider [phone] Fe Wright APRN Primary Care Provider + [phone] Elise Pemberton NP Primary Care Provider [phone] Elise Pemberton HAND CLOTH CUTTER Primary Care Provider +[phone] Encounter Details Date Type Department Care Team (Late st Contact Info) Description 07/11/2022 [employer] Message Enc [facility] Medical Group Family & Internal Medicine [facility] [address] [place] [address] Abigail Houston [place] [id number] [place] [address] [phone] Cold Social History Tobacco Use Types Packs/Day [...] Sex Assigned at Female 09/23/2024 8:11 AM QUALITY LIAISON Legal Sex Female 8:25 PM CDT Gender Identity Female 09/23/2024 8:11 AM QUALITY LIAISON Sexual Orientation Straight 09/23/2024 8: 11 AM QUALITY LIAISON 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 No / Unsure 07/12/2022 7:05 AM QUALITY LIAISON documented as of this encounter Plan of Treatment Not on file documented as of this encounter Visit Diagnoses Not on filedocumented in this encounter Additional Health Concerns Infection Onset Date Last Indicated Resolved Time COVID-19 Rule Out 08/02/2022 08/02/2022 08/02/2022 9:50 AM QUALITY LIAISON COVID-19 Confirmed 08/02/2022 08/02/2022 12:32 AM QUALITY LIAISON Assessment Noted Time PHQ-9 Depression Total Score: 0 01/25/20 22 8:02 AM CDT documented as of this encounter Care Teams Loss Prevention Agent Relationship Specialty Start Date End Date Abigail Houston MD PCP - General INTERNAL MEDICINE 08/19/18 12/03/22 Fe Wright APRN [address] [address] PCP - General NURSE PRACTITIONER 12/04/22 01/23/23 Elise Pemberton NP [address] [place] [address] PCP - General NURSE PRACTITIONER 09/23/24 Elise Pemberton NP [address] [place] [address] PCP - General NURSE PRACTITIONER 09/21/24 09/22/24 documented as of this encounter
--- OUTSIDE RECORDS SUMMARY | 2024-11-28 02:49 | XMS_ITS | Encounter Summary ---
Author Organization [facility] Address [facility] [place] [address] Care Team Providers Care Pull Tab Dealer Name Role Phone Abigail Houston MD Primary Care Provider [phone] Fe Wright APRN Primary Care Provider [phone] Elise Pemberton NP Primary Care Provider +[phone] Elise Pemberton SHELL TRIM TOOL SETTER Primary Care Provider +[phone] Encounter Details Date Type Department Care Team (Late st Contact Info) Description 09/05/2020 NeighborMDt Message Enc 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 No / Unsure 08/23/2020 12:21 PM SOLE BUFFER documented as of this encounter Plan of Treatment Not on file documented as of this encounter Visit Diagnoses Not on filedocumented in this encounter Additional Health Concerns Infection Onset Date Last Indicated Resolved Time COVID-19 Rule Out 08/02/2022 08/02/2022 08/02/2022 9:50 AM SOLE BUFFER COVID-19 Confirmed 08/02/2022 08/02/2022 12:32 AM SOLE BUFFER Assessment Noted Time PHQ-9 Depression Total Score: 0 12/19/19 19 3:40 PM CDT documented as of this encounter Care Teams Pull Tab Dealer Relationship Specialty Start Date End Date Abigail Houston MD PCP - General INTERNAL MEDICINE 08/19/18 12/03/22 Fe Wright APRN [address] [address] PCP - General NURSE PRACTITIONER 12/04/22 01/23/23 Elise Pemberton NP [address] [place] [address] PCP - General NURSE PRACTITIONER 09/23/24 Elise Pemberton NP [address] [place] [address] PCP - General NURSE PRACTITIONER 09/21/24 09/22/24 documented as of this encounter
--- OUTSIDE RECORDS SUMMARY | 2024-11-28 02:49 | XMS_ITS | Encounter Summary ---
Author Organization [facility] Address [address] [place] [address] Care Team Providers Care Trade Clerk Name Role Phone Elise Pemberton GENERATOR OPERATOR STRAIGHT BEVEL GEAR Primary Care Provider [phone] Elise Pemberton GENERATOR OPERATOR STRAIGHT BEVEL GEAR Primary Care Provider +1 [phone] Encounter Details Date Type Department Care Team (Late st Contact Info) Description 01/30/2023 [employer] Message Enc [facility] Medical Group Family & Internal Medicine [facility] [address] [place] [address] Nicolette Mcduffie PAFinn [address] 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
--- OUTSIDE RECORDS SUMMARY | 2024-11-28 02:49 | XMS_ITS | Encounter Summary ---
Author Organization [facility] Address [address] [place] [address] Care Team Providers Care Photographer News Name Role Phone Abigail Houston MD Primary Care Provider [phone] Fe Wright APRN Primary Care Provider [phone]- [phone] Elise Pemberton NP Primary Care Provider +1 [phone] Elise Pemberton NP Primary Care Provider +1 [phone] Encounter Details Date Type Department Care Team (Late st Contact Info) Description 12/10/2021 eyesFindert Message Enc [facility] Medical Group Family & Internal Medicine [address] [address] Kaylen Billings NP Control Refill [...] Sex Assigned at Female 09/23/2024 8:11 AM ROTARY DRILL RIG OPERATOR Legal Sex Female 8:25 PM CDT Gender Identity Female 09/23/2024 8:11 AM ROTARY DRILL RIG OPERATOR Sexual Orientation Straight 09/23/2024 8: 11 AM ROTARY DRILL RIG OPERATOR 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 Not on file Not on file Not on file documented as of this encounter Plan of Treatment Not on file documented as of this encounter Visit Diagnoses Not on filedocumented in this encounter Additional Health Concerns Infection Onset Date Last Indicated Resolved Time COVID-19 Rule Out 08/02/2022 08/02/2022 08/02/2022 9:50 AM ROTARY DRILL RIG OPERATOR COVID-19 Confirmed 08/02/2022 08/02/2022 12:32 AM ROTARY DRILL RIG OPERATOR Assessment Noted Time PHQ-9 Depression Total Score: 0 12/19/19 3:40 PM CDT documented as of this encounter Care Teams Photographer News Relationship Specialty Start Date End Date Abigail Houston MD PCP - General INTERNAL MEDICINE 08/19/18 12/03/22 Fe Wright APRN [address] [address] PCP - General NURSE PRACTITIONER 12/04/22 01/23/23 Elise Pemberton NP [address] [place] [address] PCP - General NURSE PRACTITIONER 09/23/24 Elise Pemberton NP [address] [place] [address] PCP - General NURSE PRACTITIONER 09/21/24 09/22/24 documented as of this encounter
--- OUTSIDE RECORDS SUMMARY | 2024-11-28 02:49 | XMS_ITS | Clinical Summary ---
Author Organization [facility] [address] Address [address] [place] [address] Care Team Providers Care Concrete Saw Operator Name Role Phone Nicolette Mcduffie Primary Care Provider [phone] Allergies Active Allergy Reactions Criticality Noted Date Comments Amoxicillin-Pot Clavulanate Rash Medium 03/28/20 23 Medications albuterol (PROAIR RESPICLICK) 90 mcg/actuation inhaler Inhale 2 puffs as needed for wheezing Active rizatriptan SMALL PRODUCTS ASSEMBLER (MAXALT-SMALL PRODUCTS ASSEMBLER) 5 mg disintegrating tabletIndications:M igraine Take 1 [...] Type Department Care Team Description 10/20/2024 Telephone [facility] General Neurology [address] [facility] 6th Floor [address] [place] [address] Nirmal, Srinivasan Claudio RN from [...] patient's age to complete this topic Insurance [employer] OOS [employer] OOS Care Teams Concrete Saw Operator Relationship Specialty [place] [address] [facility] [address] [place] [address] PCP - General Physician Receptionist Secretary 09/20/23
--- OUTSIDE RECORDS SUMMARY | 2024-11-28 02:49 | XMS_ITS | Encounter Summary ---
Author Organization [facility] Address [address] [place] [address] Care Team Providers Care Patient Intake Representative Name Role Phone Abigail Houston MD Primary Care Provider [phone] Fe Wright APRN Primary Care Provider [phone] Elise Pemberton NP Primary Care Provider [phone] Elise Pemberton NP Primary Care Provider [phone] Encounter Details Date Type Department Care Team (Late st Contact Info) Description 03/25/2022 PhoneAndPhonet Message Enc [facility] Medical Group Family & Internal Medicine [address] [address] Kaylen Billings, JABIER UTI Social [...] Sex Assigned at Female 09/23/2024 8:11 AM AUDIO/VISUAL MANAGER Legal Sex Female 8:25 PM CDT Gender Identity Female 09/23/2024 8:11 AM AUDIO/VISUAL MANAGER Sexual Orientation Straight 09/23/2024 8: 11 AM AUDIO/VISUAL MANAGER 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 Not on file Not on file documented as of this encounter Plan of Treatment Not on file documented as of this encounter Visit Diagnoses Not on filedocumented in this encounter Additional Health Concerns Infection Onset Date Last Indicated Resolved Time COVID-19 Rule Out 08/02/2022 08/02/2022 08/02/2022 9:50 AM AUDIO/VISUAL MANAGER COVID-19 Confirmed 08/02/2022 08/02/2022 12:32 AM AUDIO/VISUAL MANAGER Assessment Noted Time PHQ-9 Depression Total Score: 0 01/25/20 8:02 AM CDT documented as of this encounter Care Teams Patient Intake Representative Relationship Specialty Start Date End Date Abigail Houston MD PCP - General INTERNAL MEDICINE 08/19/18 12/03/22 Fe Wright APRN [address] [address] PCP - General NURSE PRACTITIONER 12/04/22 01/23/23 Elise Pemberton NP [address] [place] [address] PCP - General NURSE PRACTITIONER 09/23/24 Elise Pemberton NP [address] [place] [address] PCP - General NURSE PRACTITIONER 09/21/24 09/22/24 documented as of this encounter
--- OUTSIDE RECORDS SUMMARY | 2024-11-28 02:49 | XMS_ITS | Referral Summary ---
Author Organization [facility] [address] Address [address] [place] [address] Care Team Providers Care Taxation Accountant Name Role Phone Nicolette Mcduffie Primary Care Provider Encounters Date Type Department Care Team Description 10/20/2024 Telephone [facility] General Neurology [address] [facility] 6th [address] [place] [address] Srinivasan Kinney RN from Last 3 Months Allergies Active Allergy Reactions Criticality Noted Date Comments Amoxicillin-Pot Clavulanate Rash Medium 03/28/20 23 Medications albuterol (PROAIR RESPICLICK) 90 mcg/actuation inhaler Inhale 2 puffs as needed for wheezing Active rizatriptan CHEMIST ORGANIC (MAXALT-CHEMIST ORGANIC) 5 mg disintegrating tabletIndications:M igraine Take 1 [...] Plan of Treatment Not on file Insurance [employer] OOS [employer] OOS Care Teams Taxation Accountant Relationship Specialty Start [place] [address] [address] PCP - General Physician Pensionholder Information Clerk 09/20/23
--- OUTSIDE RECORDS SUMMARY | 2024-11-28 02:49 | XMS_ITS | Encounter Summary ---
Author Organization [facility] Address [address] [place] [address] Care Team Providers Care Veterinary Medicine Doctor Name Role Phone Fe Wright APRN Primary Care Provider [phone] Elise Pemberton SENIOR WINDOWS SYSTEMS ADMINISTRATOR Primary Care Provider +1 [phone] Elise Pemberton SENIOR WINDOWS SYSTEMS ADMINISTRATOR Primary Care Provider +1 [phone] Encounter Details Date Type Department Care Team (Late st Contact Info) Description 12/05/2022 Belly Ballot Message Enc [facility] Medical Group Family & Internal Medicine [address] [address] [facility] Provider Clonazepam Social History Tobacco [...] Sex Assigned at Female 09/23/2024 8:11 AM DAMPER FITTER Legal Sex Female 8:25 PM CDT Gender Identity Female 09/23/2024 8:11 AM DAMPER FITTER Sexual Orientation Straight 09/23/2024 8: 11 AM DAMPER FITTER 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 Not on file Not on file documented as of this encounter Plan of Treatment Not on file documented as of this encounter Visit Diagnoses Not on filedocumented in this encounter Additional Health Concerns Assessment Noted Time PHQ-9 Depression Total Score: 0 09/05/19 4:02 PM DAMPER FITTER documented as of this encounter Care Teams Veterinary Medicine Doctor Relationship Specialty Start Date End Date Fe Wright APRN [address] [facility] [address] [place] [address] PCP - General NURSE PRACTITIONER 12/04/22 01/23/23 Elise Pemberton NP [address] [place] [address] PCP - General NURSE PRACTITIONER 09/23/24 Elise Pemberton NP [address] [place] [address] PCP - General NURSE PRACTITIONER 09/21/24 09/22/24 documented as of this encounter
--- OUTSIDE RECORDS SUMMARY | 2024-11-28 02:49 | XMS_ITS | Clinical Summary ---
Author Organization [facility] Address [facility] [place] [address] Care Team Providers Care Clinic Lead Name Role Phone Elise Pemberton LOG CHIPPER OPERATOR Primary Care Provider [phone] [phone] Allergies Active Allergy Reactions Criticality Noted Date [...] Take 1 tablet by mouth daily. Active Active Problems Problem Noted Date Diagnosed Date Acute diverticulitis 09/23/2024 Assessment & Plan (09/23/2024 4:41 PM TRAINING PROGRAM ASSISTANT): Patient denies any tenderness on exam but [...] 11/08/2015 Assessment & Plan (09/23/2024 4:33 PM TRAINING PROGRAM ASSISTANT): Chronic condition. Controlled. No changes needed this time. Mild intermittent asthma (HHS/HCC) 04/14/2014 Assessment & Plan (09/23/2024 4:39 PM TRAINING PROGRAM ASSISTANT): Chronic condition. Controlled. Stable with use of [...] 09/23/2024 Assessment & Plan (09/09/2018 4:17 PM TRAINING PROGRAM ASSISTANT): Given severity of symptoms and preceding URI symptoms that resolved then suddenly worsened will treat for strep. Although did rec waiting 24-48 hours to see if any improvement off abx Candidiasis, vagina 12/11/2017 09/23/19 25 Encounters Date Type Department Care Team Description 09/30/2024 Scan HEALTH INFO SRVCS Scanned, Doc Med Group 09/30/2024 MyChart Message Enc [address] [place] [address] Elise Pemberton NP Gastro followup 09/29/2024 Orders Only [address] [place] [address] Elise Pemberton NP 09/28/2024 MyChart Message Enc [address] [place], [place] [address] Elise Pemberton NP Thrush 09/23/2024 12:40 PM TRAINING PROGRAM ASSISTANT Office Visit [address] [place], [place] [address] Elise Pemberton NP ER F/U ([facility] (transfer Nicolette Froy), ER follow up Diverticulitis); Annual 09/23/2024 MyChart Message Enc [address] [place], [place] [address] Elise Pemberton NP Medication refill 09/23/2024 Travel 09/21/[address] [place], [place] [id number] Elise Pemberton NP Follow Up Call 09/18/2024 Scan HEALTH INFO SRVCS Scanned, Doc Med Group [...] Sex Assigned at Female 09/23/2024 8:11 AM TRAINING PROGRAM ASSISTANT Legal Sex Female 8:25 PM CDT Gender Identity Female 09/23/2024 8:11 AM TRAINING PROGRAM ASSISTANT Sexual Orientation Straight 09/23/2024 8: 11 AM TRAINING PROGRAM ASSISTANT 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 Not on file Not on file Last Filed Vital Signs Vital Sign Reading Time Taken Comments Blood Pressure 128/82 09/23/2024 12:36 PM TRAINING PROGRAM ASSISTANT Pulse 78 09/23/2024 12:36 PM TRAINING PROGRAM ASSISTANT Temperature 36.6 C (97.8 F) 09/23/2024 12:36 PM TRAINING PROGRAM ASSISTANT Respiratory Rate 16 09/23/2024 12:36 PM TRAINING PROGRAM ASSISTANT Oxygen Saturation 99% 09/23/2024 12:36 PM TRAINING PROGRAM ASSISTANT Inhaled Oxygen Concentration - - Weight 60.8 kg (134 lb) 09/23/2024 12:36 PM TRAINING PROGRAM ASSISTANT Height 157.5 cm (5' 2 ) 09/23/2024 12:36 PM TRAINING PROGRAM ASSISTANT Body Mass Index 24.51 09/23/2024 12:36 PM TRAINING PROGRAM ASSISTANT Plan of Treatment Health Maintenance Due Date Last Done Comments Hepatitis C 2005 Hepatitis B Vaccines (1 of 3 - 19+ 3-dose series) 2006 Pneumococcal Vaccine: Pediatrics (0 to 5 Years) and At-Risk Patients (6 to 49 Years) (1 of 2 - PCV) 2006 Cervical Cancer Screening Pap with HPV Testing (Age 30 to 64) Every 5 Years 2017 COVID-19 Vaccine (2023- season) 2024 Cervical Cancer Screening Pap Smear (Age 30 to 64) Every 3 Years 01/24/2025 01/24/2022, 08/21/2018 Cervical Cancer Screening with HPV 01/24/2025 Annual Physical 09/23/2025 09/23/2024, 01/05, 01/19/2021, Additional history exists DTaP, Tdap and Td Vaccines (2 - Td or Tdap) 01/25/2033 01/25/2023, 10/26/2012, 10/26/2012 PHQ-2 (Physician [place]) Completed 09/23/2024 HPV Vaccines Aged Out No [...] 01/24/2022 9:03 AM CDT Visit for routine microcomputer support specialist exam from Last 3 Months or Most Recently Relevant to Health Maintenance Results * CT GENERIC (09/18/2024) Anatomical Region Laterality Modality Other 09/18/2024 [employer] Scanned SCANNING Final Resu lt * OUTSIDE LAB (SCAN ORDER) (09/18/2024) Only the most recent of3 resultswithin the time period is included. 09/18/2024 [facility] Scanned SCANNING Final Resu lt * Cytopath Cerv/Vag Thin Layer (01/24/2022 9:03 AM CDT) CLINICAL INFORMATION: Information not provided [facility] [employer] [facility] Clinical Information: UNKNOWN [employer] [facility] Date of Last Pap INFORMATION NOT PROVIDED [facility] [employer] [facility] Previous Biopsy? INFORMATION NOT PROVIDED [facility] [employer] [facility] SOURCE (QST) Cervix, Endocervix [facility] [employer] [facility] STATEMENT OF ADEQUACY: [employer] [facility] Comment: Satisfactory for evaluation. Endocervical/transformation zone component present. Age and/or menstrual status not provided PAP INTERPRETATION/RESU LTS Negative for intraepithelial lesion or malignancy. [facility] COMPUTATIONAL SCIENTIST [facility] Comment: CARLIE SUAZO(ASCP) CT Screening location: [place] [address] [address] [place] [address] COMMENT: [facility] Comment: EXPLANATORY NOTE: The Pap is a [...] Houston MD PATHOLOGY/CYTOLOGY ORDERABLE S Final Result [facility] [place] [address] [place] [phone] from Last 3 Months or Most Recently Relevant to Health Maintenance Insurance [facility] Care Teams Clinic Lead Relationship Specialty Start Date End Date Elise Pemberton NP [address] [place] [address] PCP - General NURSE PRACTITIONER 09/23/24
[2024-11-28 02:51] VITALS: BP 132/75; PULSE 69; RESP 15; TEMP 36.9; O2SAT 99
[2024-11-28] MEDS: LIDOCAINE 5% PATCH 1 PATCH TRANSDERM (03:32)
[2024-11-28] MEDS: ACETAMINOPHEN 500 MG TABLET 1000 MG PO (03:33)
[2024-11-28] MEDS: KETOROLAC 30 MG/ML VIAL (*BKC) IM (03:33)
[2024-11-28] MEDS: diazePAM INJ (*CRX) 10 MG/2 ML SYRINGE 5 MG IM (03:33)
--- NOTE | 2024-11-28 03:53 | ED.GENADULT ---
HPI - General Adult General Chief complaint: Neck Pain/Injury Stated complaint: neck pain radiating to R arm Time Seen by Provider: 11/28/24 03:10 History of Present Illness HPI narrative: This is a 39-year-old female presenting with right neck and shoulder pain. Patient says that she slept on her neck lung 2 nights ago. She has now had pain and stiffness in her right side of her neck/trapezius area. Is making it difficult to move her head. She does not have any weakness in her arm. No trauma/fevers. No neurologic deficits, confusion or loss of consciousness. He has been taking Motrin with minimal relief. Related Data Home Medications ?Medication ?Instructions ?Recorded ?Confirmed ?Last Taken ?Type rizatriptan 5 mg tablet 5 mg PO PRN PRN Migraine Headache 06/18/19 11/18/24 Unknown History albuterol sulfate 90 mcg/actuation 1 inh inhalation Q4-6H PRN 09/30/24 11/20/24 11/20/24 History breath activated powder shortness of breath or wheezing inhaler,sensor vit no.95-ferrous 1 tablet PO DAILY 11/18/24 11/20/24 11/18/24 History fumarate 28 mg-folic acid 800 mcg tablet ( Multivitamins) Allergies Allergy/AdvReac Type Severity Reaction Status Date / Time amoxicillin (From Augmentin) Allergy Rash Verified 11/28/24 02:48 clavulanic acid (From Allergy Rash Verified 11/28/24 02:48 Augmentin) PMFSH Past Medical History Medical History (Updated 11/28/24 @ 03:56 by Erwin Morales MD) History of asthma LLQ pain Anxiety Migraine Surgical History Surgical History (Updated 11/20/24 @ 12:43 by Arpit Menon MD) History of inguinal hernia repair, bilateral History of wisdom tooth extraction No history of previous surgery Social History Social History Smoking status: Never smoker Alcohol intake: never Alcohol use details: Social Substance use: never Substance use type: does not use Living arrangements: with family Gender identity (if verbalized by the patient): Female Exam Narrative: APPEARANCE: No apparent distress. Head: atraumatic. EYES: EOMI, NOSE: Atraumatic NECK: Tenderness over the right paracervical muscles in the right trapezius. No midline tenderness. RESPIRATORY: No increased rate of breathing CARDIOVASCULAR: RRR, ABDOMINAL: Non-distended MUSCULOSKELETAl: Focal exam of the right upper extremity revealed tenderness over the trapezius muscle, strength is intact shoulder elbow and wrist. Pulses are +2 cap refills less than 2 seconds. NEURO: Alert. Moving 4/4 extremities SKIN:: Warm, dry. Normal color PSYCHIATRIC: Normal affect Course Vital Signs Vital signs: Vital Signs Temperature 98.4 F 11/28/24 02:51 Pulse Rate 69 11/28/24 02:51 Respiratory Rate 15 11/28/24 02:51 Blood Pressure 132/75 11/28/24 02:51 Pulse Oximetry 99 11/28/24 02:51 Oxygen Delivery Room Air 11/28/24 02:51 Temperature 98.4 F 11/28/24 02:51 Pulse Rate 69 11/28/24 02:51 Respiratory Rate 15 11/28/24 02:51 Blood Pressure 132/75 11/28/24 02:51 Pulse Oximetry 99 11/28/24 02:51 Oxygen Delivery Room Air 11/28/24 02:51 Medical Decision Making MDM Narrative Medical decision making narrative: -Course: 39-year-old female presenting with right neck and shoulder pain. She has tenderness over the right paracervical muscles and trapezius muscle on exam. Arm is neurovascularly intact. Patient was treated with muscle relaxers and NSAIDs. She will be discharged with appropriate medications. Given primary care follow-up return precautions. -DDX includes but is not limited to: Muscle strain, muscle spasm, cervical radiculopathy Vital Signs Vital Signs: Vital Signs Temperature 98.4 F 11/28/24 02:51 Pulse Rate 69 11/28/24 02:51 Respiratory Rate 15 11/28/24 02:51 Blood Pressure 132/75 11/28/24 02:51 Pulse Oximetry 99 11/28/24 02:51 Oxygen Delivery Room Air 11/28/24 02:51 Temperature 98.4 F 11/28/24 02:51 Pulse Rate 69 11/28/24 02:51 Respiratory Rate 15 11/28/24 02:51 Blood Pressure 132/75 11/28/24 02:51 Pulse Oximetry 99 11/28/24 02:51 Oxygen Delivery Room Air 11/28/24 02:51 Discharge Plan Discharge Clinical Impression: Cervicalgia, Strain of right trapezius muscle Patient Disposition: Home Condition: Stable Instructions: Antibiotic Form, Neck Pain (ED) Additional Instructions: Please use Motrin Tylenol and Robaxin for your pain. You can also use lidocaine patches. If you develop severe pain, fevers or weakness to any extremity please return to the ED for re-evaluation. Patient Language: Croatian Prescriptions: New acetaminophen 500 mg tablet 1,000 mg PO TID PRN (Reason: walt) 7 Days Qty: 42 0RF ibuprofen 800 mg tablet 800 mg PO TID PRN (Reason: pain) 7 Days Qty: 21 0RF methocarbamol 750 mg tablet 1,500 mg PO TID Qty: 42 0RF lidocaine 5 % adhesive patch,medicated 1 patch topical DAILY Qty: 15 0RF Rx Instructions: leave on most painful area for up to 12 hrs No Action rizatriptan 5 mg tablet 5 mg PO PRN PRN (Reason: Migraine Headache) albuterol sulfate 90 mcg/actuation aero powdr breath act w/sensor 1 inh inhalation Q4-6H PRN (Reason: shortness of breath or wheezing) PNV cmb#95-ferrous fumarate-FA [ Multivitamins] 28 mg iron- 800 mcg tablet 1 tablet PO DAILY hydrocodone-acetaminophen 5-325 mg tablet 1 tablet PO Q6H PRN (Reason: pain) Qty: 10 0RF Follow-up/Referrals: Nilay,Elise Zuñiga, ANP [Primary Care Provider] -
--- OUTSIDE RECORDS SUMMARY | 2024-11-28 04:12 | XMS_ITS | Referral Summary ---
Author Organization [facility] [address] [place] Address [address] [place] [address] Care Team Providers Care Serology Technician Name Role Phone Nicoletet Mcduffie Primary Care Provider [phone] Encounters Date Type Department Care Team Description 10/20/2024 Telephone [facility] General Neurology [address] [facility] 6th [address] [place] [address] Srinivasan Kinney RN from Last 3 Months Allergies Active Allergy Reactions Criticality Noted Date Comments Amoxicillin-Pot Clavulanate Rash Medium 03/28/20 23 Medications albuterol (PROAIR RESPICLICK) 90 mcg/actuation inhaler Inhale 2 puffs as needed for wheezing Active rizatriptan CIRCULATION ASSISTANT (MAXALT-CIRCULATION ASSISTANT) 5 mg disintegrating tabletIndications:M igraine Take 1 [...] Plan of Treatment Not on file Insurance PeerIndex OOS PeerIndex OOS Care Teams Serology Technician Relationship Specialty Start [place] [phone] [address] PCP - General Physician Geothermal Installer 09/20/23
--- OUTSIDE RECORDS SUMMARY | 2024-11-28 04:12 | XMS_ITS | Clinical Summary ---
Author Organization [facility] [email or web address] Address [address] [email or web address] [address] Care Team Providers Care Felting Machine Operator Helper Name Role Phone Nicolette Mcduffie Primary Care Provider [phone] Allergies Active Allergy Reactions Criticality Noted Date Comments Amoxicillin-Pot Clavulanate Rash Medium 03/28/20 23 Medications albuterol (PROAIR RESPICLICK) 90 mcg/actuation inhaler Inhale 2 puffs as needed for wheezing Active rizatriptan REFLEXOLOGIST (MAXALT-REFLEXOLOGIST) 5 mg disintegrating tabletIndications:M igraine Take 1 [...] Type Department Care Team Description 10/20/2024 Telephone [facility] General Neurology [address] [facility] 6th [address] [place] [address] Nirmal, Srinivasan Claudio RN from [...] patient's age to complete this topic Insurance FiftyThree OOS FiftyThree OOS Care Teams Felting Machine Operator Helper Relationship Specialty [place] [address] [facility] [address] [place] [address] PCP - General Physician Electrical Manufacturing Engineer 09/20/23
--- OUTSIDE RECORDS SUMMARY | 2024-11-28 04:13 | XMS_ITS | Encounter Summary ---
Author Organization [facility] Address [address] [place] [address] Care Team Providers Care Bleach Boiler Filler Name Role Phone Elise Pemberton DIRECTOR HEMATOLOGY Primary Care Provider [phone] Elise Pemberton DIRECTOR HEMATOLOGY Primary Care Provider [phone] Encounter Details Date Type Department Care Team (Late st Contact Info) Description 01/30/2023 Eagle Alphat Message Enc [facility] Family & Internal Medicine [facility] [address] [place] [address] Nicolette Mcduffie PAFinn [address] 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
--- OUTSIDE RECORDS SUMMARY | 2024-11-28 04:13 | XMS_ITS | Encounter Summary ---
Author Organization [facility] Address [address] [place] [address] Care Team Providers Care Fence Supervisor Name Role Phone Elise Pemberton HIGHWAY MAINTENANCE WORKER Primary Care Provider [phone] Encounter Details Date Type Department Care Team (Late st Contact Info) Description 09/30/2024 Palkiont Message Enc [facility] Medical Group Family Medicine - [place] [address] [facility] [address] [place] [phone] Elise Pemberton, JABIER [address] [place] [address] [place] [address] Gastro followup Social History Tobacco Use Types [...] Sex Assigned at Female 09/23/2024 8:11 AM SOIL SURVEYOR Legal Sex Female 8:25 PM CDT Gender Identity Female 09/23/2024 8:11 AM SOIL SURVEYOR Sexual Orientation Straight 09/23/2024 8: 11 AM SOIL SURVEYOR 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
--- OUTSIDE RECORDS SUMMARY | 2024-11-28 04:13 | XMS_ITS | Encounter Summary ---
Author Organization [facility] Address [address] [place] [address] Care Team Providers Care Sales Representative [employer] Name Role Phone Abigail Houston MD Primary Care Provider [phone] Fe Wright APRN Primary Care Provider [phone] Elise Pemberton NP Primary Care Provider [phone] Elise Pemberton NP Primary Care Provider [phone] Encounter Details Date Type Department Care Team (Late st Contact Info) Description 03/25/2022 Dreamzer Gamest Message Enc [facility] Family & Internal Medicine [address] [address] Kaylen Billings, JABIER UTI Social [...] Sex Assigned at Female 09/23/2024 8:11 AM BOILER HOUSE INSPECTOR Legal Sex Female 8:25 PM CDT Gender Identity Female 09/23/2024 8:11 AM BOILER HOUSE INSPECTOR Sexual Orientation Straight 09/23/2024 8: 11 AM BOILER HOUSE INSPECTOR 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 Not on file Not on file documented as of this encounter Plan of Treatment Not on file documented as of this encounter Visit Diagnoses Not on filedocumented in this encounter Additional Health Concerns Infection Onset Date Last Indicated Resolved Time COVID-19 Rule Out 08/02/2022 08/02/2022 08/02/2022 9:50 AM BOILER HOUSE INSPECTOR COVID-19 Confirmed 08/02/2022 08/02/2022 12:32 AM BOILER HOUSE INSPECTOR Assessment Noted Time PHQ-9 Depression Total Score: 0 01/25/20 8:02 AM CDT documented as of this encounter Care Teams Sales Representative Marine Supplies Relationship Specialty Start Date End Date Abigail Houston MD PCP - General INTERNAL MEDICINE 08/19/18 12/03/22 Fe Wright APRN [address] [address] PCP - General NURSE PRACTITIONER 12/04/22 01/23/23 Elise Pemberton NP [address] [place] [address] PCP - General NURSE PRACTITIONER 09/23/24 Elise Pemberton NP [address] [place] [address] PCP - General NURSE PRACTITIONER 09/21/24 09/22/24 documented as of this encounter
--- OUTSIDE RECORDS SUMMARY | 2024-11-28 04:13 | XMS_ITS | Encounter Summary ---
Author Organization [facility] Address [facility] [place] [address] Care Team Providers Care Special Library Librarian Name Role Phone Abigail Houston MD Primary Care Provider [phone] Fe Wright APRN Primary Care Provider + [phone] Elise Pemberton NP Primary Care Provider [phone] Elise Pemberton MANAGER CLINICAL INFORMATICS Primary Care Provider [phone] Encounter Details Date Type Department Care Team (Late st Contact Info) Description 08/07/2022 Zazzlet Message Enc [facility] Medical Group Family & Internal Medicine [facility] [address] [place] [address] A[place]ail Houston [place] [id number] [place] [phone] Paxlovid Social History Tobacco Use Types Packs/Day [...] Sex Assigned at Female 09/23/2024 8:11 AM NECK BAND SETTER Legal Sex Female 8:25 PM CDT Gender Identity Female 09/23/2024 8:11 AM NECK BAND SETTER Sexual Orientation Straight 09/23/2024 8: 11 AM NECK BAND SETTER 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 Yes 08/02/2022 9:15 AM NECK BAND SETTER documented as of this encounter Plan of Treatment Not on file documented as of this encounter Visit Diagnoses Not on filedocumented in this encounter Additional Health Concerns Infection Onset Date Last Indicated Resolved Time COVID-19 Confirmed 08/02/2022 08/02/2022 12:32 AM NECK BAND SETTER Assessment Noted Time PHQ-9 Depression Total Score: 0 01/25/20 8:02 AM CDT documented as of this encounter Care Teams Special Library Librarian Relationship Specialty Start Date End Date Abigail Houston MD PCP - General INTERNAL MEDICINE 08/19/18 12/03/22 Fe Wright APRN [address] [facility] [address] [place] [address] PCP - General NURSE PRACTITIONER 12/04/22 01/23/23 Elise Pemberton NP [address] [place], [place] [address] PCP - General NURSE PRACTITIONER 09/23/24 Elise Pemberton NP [address] [place] [address] PCP - General NURSE PRACTITIONER 09/21/24 09/22/24 documented as of this encounter
--- OUTSIDE RECORDS SUMMARY | 2024-11-28 04:13 | XMS_ITS | Encounter Summary ---
Author Organization [facility] Address [address] [place] [address] Care Team Providers Care Office Services Representative Name Role Phone Elise Pemberton [employer] Primary Care Provider [phone] Elise Pemberton [employer] Primary Care Provider +1 [phone] Encounter Details Date Type Department Care Team (Late st Contact Info) Description 01/31/2023 MyChart Message Enc [facility] Medical Group - [facility] [address] [place] [address] [facility] Provider Air Quality Message Social History [...] Sex Assigned at Female 09/23/2024 8:11 AM PYROTECHNIST Legal Sex Female 8:25 PM CDT Gender Identity Female 09/23/2024 8:11 AM PYROTECHNIST Sexual Orientation Straight 09/23/2024 8: 11 AM PYROTECHNIST 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 Not on file Not on file documented as of this encounter Plan of Treatment Not on file documented as of this encounter Visit Diagnoses Not on filedocumented in this encounter Additional Health Concerns Assessment Noted Time PHQ-9 Depression Total Score: 0 09/05/19 23 4:02 PM PYROTECHNIST documented as of this encounter Care Teams Office Services Representative Relationship Specialty Start Date End Date Elise Pemberton NP [address] [place] [address] PCP - General NURSE PRACTITIONER 09/23/24 Elise Pemberton NP [address] [place] [address] PCP - General NURSE PRACTITIONER 09/21/24 09/22/24 documented as of this encounter
--- OUTSIDE RECORDS SUMMARY | 2024-11-28 04:13 | XMS_ITS | Encounter Summary ---
Author Organization [facility] Address [address] [place] [address] Care Team Providers Care Child Advocate Name Role Phone Elise Pemberton SCIENTIFIC EDITOR Primary Care Provider [phone] Encounter Details Date Type Department Care Team (Late st Contact Info) Description 09/23/2024 immatics biotechnologies Message Enc [facility] Medical Group Family Medicine - [place] [address] 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
--- OUTSIDE RECORDS SUMMARY | 2024-11-28 04:13 | XMS_ITS | Encounter Summary ---
Author Organization [facility] Address [address] [place] [address] Care Team Providers Care Dictating Machine Typist Name Role Phone Abigail Houston MD Primary Care Provider [phone] Fe Wright APRN Primary Care Provider [phone] Elise Pemberton NP Primary Care Provider [phone] Elise Pemberton NP Primary Care Provider [phone] Encounter Details Date Type Department Care Team (Late st Contact Info) Description 12/10/2021 Convercentt Message Enc [facility] Medical Group Family & Internal Medicine [address] [address] Kaylen Billings NP Control Refill [...] Sex Assigned at Female 09/23/2024 8:11 AM SHEETER OPERATOR Legal Sex Female 8:25 PM CDT Gender Identity Female 09/23/2024 8:11 AM SHEETER OPERATOR Sexual Orientation Straight 09/23/2024 8: 11 AM SHEETER OPERATOR 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 Not on file Not on file documented as of this encounter Plan of Treatment Not on file documented as of this encounter Visit Diagnoses Not on filedocumented in this encounter Additional Health Concerns Infection Onset Date Last Indicated Resolved Time COVID-19 Rule Out 08/02/2022 08/02/2022 08/02/2022 9:50 AM SHEETER OPERATOR COVID-19 Confirmed 08/02/2022 08/02/2022 12:32 AM SHEETER OPERATOR Assessment Noted Time PHQ-9 Depression Total Score: 0 12/19/19 3:40 PM CDT documented as of this encounter Care Teams Dictating Machine Typist Relationship Specialty Start Date End Date Abigail Houston MD PCP - General INTERNAL MEDICINE 08/19/18 12/03/22 Fe Wright APRN [address] [address] PCP - General NURSE PRACTITIONER 12/04/22 01/23/23 Elise Pemberton NP [address] [place] [address] PCP - General NURSE PRACTITIONER 09/23/24 Elise Pemberton NP [address] [place] [address] PCP - General NURSE PRACTITIONER 09/21/24 09/22/24 documented as of this encounter
--- OUTSIDE RECORDS SUMMARY | 2024-11-28 04:13 | XMS_ITS | Encounter Summary ---
Author Organization [facility] Address [facility] [place] [address] Care Team Providers Care Referral Rn Name Role Phone Abigail Houston MD Primary Care Provider [phone] Fe Wright APRN Primary Care Provider + [phone] Elise Pemberton NP Primary Care Provider [phone] Elise Pemberton GRINDER OPERATOR AUTOMATIC Primary Care Provider [phone] Encounter Details Date Type Department Care Team (Late st Contact Info) Description 07/11/2022 Kaboodlet Message Enc [facility] Medical Group Family & Internal Medicine [facility] [address] [place] [address] A[place]ail Houston [place] [id number] [place] [address] [phone] Cold Social History Tobacco Use Types Packs/Day [...] Sex Assigned at Female 09/23/2024 8:11 AM GLASS CUTTING MACHINE OPERATOR Legal Sex Female 8:25 PM CDT Gender Identity Female 09/23/2024 8:11 AM GLASS CUTTING MACHINE OPERATOR Sexual Orientation Straight 09/23/2024 8: 11 AM GLASS CUTTING MACHINE OPERATOR 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 No / Unsure 07/12/2022 7:05 AM GLASS CUTTING MACHINE OPERATOR documented as of this encounter Plan of Treatment Not on file documented as of this encounter Visit Diagnoses Not on filedocumented in this encounter Additional Health Concerns Infection Onset Date Last Indicated Resolved Time COVID-19 Rule Out 08/02/2022 08/02/2022 08/02/2022 9:50 AM GLASS CUTTING MACHINE OPERATOR COVID-19 Confirmed 08/02/2022 08/02/2022 12:32 AM GLASS CUTTING MACHINE OPERATOR Assessment Noted Time PHQ-9 Depression Total Score: 0 01/25/20 22 8:02 AM CDT documented as of this encounter Care Teams Referral Rn Relationship Specialty Start Date End Date Abigail Houston MD PCP - General INTERNAL MEDICINE 08/19/18 12/03/22 Fe Wright APRN [address] [address] PCP - General NURSE PRACTITIONER 12/04/22 01/23/23 Elise Pemberton NP [address] [place] [address] PCP - General NURSE PRACTITIONER 09/23/24 Elise Pemberton NP [address] [place] [address] PCP - General NURSE PRACTITIONER 09/21/24 09/22/24 documented as of this encounter
--- OUTSIDE RECORDS SUMMARY | 2024-11-28 04:13 | XMS_ITS | Clinical Summary ---
Author Organization [facility] Address [facility] [place] [address] Care Team Providers Care Enterprise Systems Manager Name Role Phone Elise Pemberton ON AIR DIRECTOR Primary Care Provider [phone] [phone] Allergies Active Allergy Reactions Criticality Noted Date [...] 09/23/2024 Assessment & Plan (09/23/2024 4:41 PM BLOCKER AND POLISHER): Patient denies any tenderness on exam but [...] 11/08/2015 Assessment & Plan (09/23/2024 4:33 PM BLOCKER AND POLISHER): Chronic condition. Controlled. No changes needed this time. Mild intermittent asthma (HHS/HCC) 04/14/2014 Assessment & Plan (09/23/2024 4:39 PM BLOCKER AND POLISHER): Chronic condition. Controlled. Stable with use of [...] 09/23/2024 Assessment & Plan (09/09/2018 4:17 PM BLOCKER AND POLISHER): Given severity of symptoms and preceding URI symptoms that resolved then suddenly worsened will treat for strep. Although did rec waiting 24-48 hours to see if any improvement off abx Candidiasis, vagina 12/11/2017 09/23/19 25 Encounters Date Type Department Care Team Description 09/30/2024 Scan HEALTH INFO SRVCS Scanned, Doc Med Group 09/30/2024 MyChart Message Enc [address] [place] [address] Elise Pemberton NP Gastro followup 09/29/2024 Orders Only [address] [place] [address] Elise Pemberton NP 09/28/2024 MyChart Message Enc [address] [place], [place] [address] Elise Pemberton NP Thrush 09/23/2024 12:40 PM BLOCKER AND POLISHER Office Visit [address] [place], [place] [address] Elise Pemberton NP ER F/U ([facility] (transfer Nicolette Froy), ER follow up Diverticulitis); Annual 09/23/2024 MyChart Message Enc [address] [place], [place] [address] Elise Pemberton NP Medication refill 09/23/2024 Travel 09/21/[address] [place], [place] [id number] Elise Pemberton NP Follow Up Call 09/18/2024 [...] Sex Assigned at Female 09/23/2024 8:11 AM BLOCKER AND POLISHER Legal Sex Female 8:25 PM CDT Gender Identity Female 09/23/2024 8:11 AM BLOCKER AND POLISHER Sexual Orientation Straight 09/23/2024 8: 11 AM BLOCKER AND POLISHER 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 file Not on file Not on file Last Filed Vital Signs Vital Sign Reading Time Taken Comments Blood Pressure 128/82 09/23/2024 12:36 PM BLOCKER AND POLISHER Pulse 78 09/23/2024 12:36 PM BLOCKER AND POLISHER Temperature 36.6 C (97.8 F) 09/23/2024 12:36 PM BLOCKER AND POLISHER Respiratory Rate 16 09/23/2024 12:36 PM BLOCKER AND POLISHER Oxygen Saturation 99% 09/23/2024 12:36 PM BLOCKER AND POLISHER Inhaled Oxygen Concentration - - Weight 60.8 kg (134 lb) 09/23/2024 12:36 PM BLOCKER AND POLISHER Height 157.5 cm (5' 2 ) 09/23/2024 12:36 PM BLOCKER AND POLISHER Body Mass Index 24.51 09/23/2024 12:36 PM BLOCKER AND POLISHER Plan of Treatment Health Maintenance Due Date [...] Tdap) 01/25/2033 01/25/2023, 10/26/2012, 10/26/2012 PHQ-2 (Physician [place]) Completed 09/23/2024 HPV Vaccines Aged Out No [...] 01/24/2022 9:03 AM CDT Visit for routine medical assistant ob gyn exam from Last 3 Months or Most Recently Relevant to Health Maintenance Results * CT GENERIC (09/18/2024) Anatomical Region Laterality Modality Other 09/18/2024 [facility] Scanned SCANNING Final Resu lt * OUTSIDE LAB (SCAN ORDER) (09/18/2024) Only the most recent of3 resultswithin the time period is included. 09/18/2024 [facility] Scanned SCANNING Final Resu lt * Cytopath Cerv/Vag Thin Layer (01/24/2022 9:03 AM CDT) CLINICAL INFORMATION: Information not provided [facility] [employer] [facility] Clinical Information: UNKNOWN [facility] Date of Last Pap INFORMATION NOT PROVIDED [facility] [employer] [facility] Previous Biopsy? INFORMATION NOT PROVIDED [facility] [employer] [facility] SOURCE (QST) Cervix, Endocervix [facility] [employer] [facility] STATEMENT OF ADEQUACY: [facility] Comment: Satisfactory for evaluation. Endocervical/transformation zone component present. Age and/or menstrual status not provided PAP INTERPRETATION/RESU LTS Negative for intraepithelial lesion or malignancy. [facility] SENIOR WEB DESIGNER [facility] Comment: CARLIE SUAZO(ASCP) CT Screening location: [place] [address] [address] [place] [address] COMMENT: [facility] Comment: EXPLANATORY NOTE: The Pap is a [...] Houston MD PATHOLOGY/CYTOLOGY ORDERABLE S Final Result [facility] ORDERS [place] [address] [place] [phone] from Last 3 Months or Most Recently Relevant to Health Maintenance Insurance [employer] Care Teams Enterprise Systems Manager Relationship Specialty Start Date End Date Elise Pemberton NP [address] [place] [address] PCP - General NURSE PRACTITIONER 09/23/24
--- OUTSIDE RECORDS SUMMARY | 2024-11-28 04:13 | XMS_ITS | Encounter Summary ---
Author Organization [facility] Address [facility] [place] [address] Care Team Providers Care Workday Senior Associate Name Role Phone Abigail Houston MD Primary Care Provider [phone] Fe Wright APRN Primary Care Provider + [phone] Elise Pemberton NP Primary Care Provider [phone] Elise Pemberton PIE ICER MACHINE Primary Care Provider [phone] Encounter Details Date Type Department Care Team (Late st Contact Info) Description 12/10/2021 UBmatrixt Message Enc [facility] Medical Group Family & Internal Medicine [facility] [address] [place] [address] A[place]ail Houston [place] [id number] [place] [phone] control refill Social History Tobacco Use Types [...] Sex Assigned at Female 09/23/2024 8:11 AM COMPUTER OPERATIONS SUPERVISOR Legal Sex Female 8:25 PM CDT Gender Identity Female 09/23/2024 8:11 AM COMPUTER OPERATIONS SUPERVISOR Sexual Orientation Straight 09/23/2024 8: 11 AM COMPUTER OPERATIONS SUPERVISOR 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 Not on file Not on file documented as of this encounter Plan of Treatment Not on file documented as of this encounter Visit Diagnoses Not on filedocumented in this encounter Additional Health Concerns Infection Onset Date Last Indicated Resolved Time COVID-19 Rule Out 08/02/2022 08/02/2022 08/02/2022 9:50 AM COMPUTER OPERATIONS SUPERVISOR COVID-19 Confirmed 08/02/2022 08/02/2022 12:32 AM COMPUTER OPERATIONS SUPERVISOR Assessment Noted Time PHQ-9 Depression Total Score: 0 12/19/19 19 3:40 PM CDT documented as of this encounter Care Teams Workday Senior Associate Relationship Specialty Start Date End Date Abigail Houston MD PCP - General INTERNAL MEDICINE 08/19/18 12/03/22 Fe Wright APRN [address] [address] PCP - General NURSE PRACTITIONER 12/04/22 01/23/23 Elise Pemberton NP [address] [place] [address] PCP - General NURSE PRACTITIONER 09/23/24 Elise Pemberton NP [address] [place] [address] PCP - General NURSE PRACTITIONER 09/21/24 09/22/24 documented as of this encounter
--- OUTSIDE RECORDS SUMMARY | 2024-11-28 04:13 | XMS_ITS | Encounter Summary ---
Author Organization [facility] Address [address] [place] [address] Care Team Providers Care Piping Blocker Name Role Phone Fe Wright APRN Primary Care Provider [phone]- [phone] Elise Pemberton HAND LACER Primary Care Provider +1 [phone] Elise Pemberton HAND LACER Primary Care Provider +1 [phone] Encounter Details Date Type Department Care Team (Late st Contact Info) Description 12/05/2022 Velotton Message Enc [facility] Medical Group Family & Internal Medicine [address] [address] [facility] Provider Clonazepam Social History Tobacco [...] Sex Assigned at Female 09/23/2024 8:11 AM COLOR MAKER FORMULATOR Legal Sex Female 8:25 PM CDT Gender Identity Female 09/23/2024 8:11 AM COLOR MAKER FORMULATOR Sexual Orientation Straight 09/23/2024 8: 11 AM COLOR MAKER FORMULATOR 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 file Not on file Not on file documented as of this encounter Plan of Treatment Not on file documented as of this encounter Visit Diagnoses Not on filedocumented in this encounter Additional Health Concerns Assessment Noted Time PHQ-9 Depression Total Score: 0 09/05/19 4:02 PM COLOR MAKER FORMULATOR documented as of this encounter Care Teams Piping Blocker Relationship Specialty Start Date End Date Fe Wright APRN [address] [facility] [address] [place] [address] PCP - General NURSE PRACTITIONER 12/04/22 01/23/23 Elise Pemberton NP [address] [place] [address] PCP - General NURSE PRACTITIONER 09/23/24 Elise Pemberton NP [address] [place] [address] PCP - General NURSE PRACTITIONER 09/21/24 09/22/24 documented as of this encounter
--- OUTSIDE RECORDS SUMMARY | 2024-11-28 04:13 | XMS_ITS | Encounter Summary ---
Author Organization [facility] Address [address] [place] [address] Care Team Providers Care Inspector Metal Can Name Role Phone Abigail Houston MD Primary Care Provider [phone] Fe Wright APRN Primary Care Provider +[phone]- [phone] Elise Pemberton NP Primary Care Provider +1 [phone] Elise Pemberton SUGAR CANE GROWER Primary Care Provider +1 [phone] Encounter Details Date Type Department Care Team (Late st Contact Info) Description 11/29/2015 Abstract [facility] CONVERSION [address] [place] [address] , Generic ConversionMD Social History Tobacco Use Types Packs/Day Years Used Date Smoking Tobacco: Never Assessed Comments Unknown Sex and Gender Information Value Date Recorded Sex Assigned at Female 09/23/2024 8:11 AM HUMAN RESOURCES TRAINER Legal Sex Female 8:25 PM CDT Gender Identity Female 09/23/2024 8:11 AM HUMAN RESOURCES TRAINER Sexual Orientation Straight 09/23/2024 8: 11 AM HUMAN RESOURCES TRAINER documented as of this encounter Plan of Treatment Not on file documented as of this encounter Visit Diagnoses Not on filedocumented in this encounter Additional Health Concerns Infection Onset Date Last Indicated Resolved Time COVID-19 Rule Out 08/02/2022 08/02/2022 08/02/2022 9:50 AM HUMAN RESOURCES TRAINER COVID-19 Confirmed 08/02/2022 08/02/2022 12:32 AM HUMAN RESOURCES TRAINER documented as of this encounter Care Teams Inspector Metal Can Relationship Specialty Start Date End Date Abigail Houston MD PCP - General INTERNAL MEDICINE 08/19/18 12/03/22 Fe Wright APRN [address] [facility] [address] [place] [address] PCP - General NURSE PRACTITIONER 12/04/22 01/23/23 Elise Pemberton NP [address] [place], [place] [address] PCP - General NURSE PRACTITIONER 09/23/24 Elise Pemberton NP [address] [place], [place] [address] PCP - General NURSE PRACTITIONER 09/21/24 09/22/24 documented as of this encounter
--- OUTSIDE RECORDS SUMMARY | 2024-11-28 04:13 | XMS_ITS | Encounter Summary ---
Author Organization [facility] Address [facility] [place] [address] Care Team Providers Care Replenishment Analyst Name Role Phone Abigail Houston MD Primary Care Provider [phone] Fe Wright APRN Primary Care Provider [phone]- [phone] Elies Pemberton NP Primary Care Provider +1 [phone] Elise Pemberton JORDAN MAN Primary Care Provider +1 -[phone] Encounter Details Date Type Department Care Team (Late st Contact Info) Description 09/05/2020 eXelatet Message Enc [facility] Medical Group Family & Internal Medicine [facility] [address] [place] [address] Germaine Cristina FNP [address] [id number] RE: Test Results Social History Tobacco Use [...] Sex Assigned at Female 09/23/2024 8:11 AM TWISTHAND Legal Sex Female 8:25 PM CDT Gender Identity Female 09/23/2024 8:11 AM TWISTHAND Sexual Orientation Straight 09/23/2024 8: 11 AM TWISTHAND 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 No / Unsure 08/23/2020 12:21 PM TWISTHAND documented as of this encounter Plan of Treatment Not on file documented as of this encounter Visit Diagnoses Not on filedocumented in this encounter Additional Health Concerns Infection Onset Date Last Indicated Resolved Time COVID-19 Rule Out 08/02/2022 08/02/2022 08/02/2022 9:50 AM TWISTHAND COVID-19 Confirmed 08/02/2022 08/02/2022 12:32 AM TWISTHAND Assessment Noted Time PHQ-9 Depression Total Score: 0 12/19/19 19 3:40 PM CDT documented as of this encounter Care Teams Replenishment Analyst Relationship Specialty Start Date End Date Abigail Housotn MD PCP - General INTERNAL MEDICINE 08/19/18 12/03/22 Fe Wright APRN [address] [address] PCP - General NURSE PRACTITIONER 12/04/22 01/23/23 Elise Pemberton NP [address] [place] [address] PCP - General NURSE PRACTITIONER 09/23/24 Elise Pemberton NP [address] [place] [address] PCP - General NURSE PRACTITIONER 09/21/24 09/22/24 documented as of this encounter
[2024-11-28 04:15] VITALS: BP 150/93; PULSE 88; RESP 19; O2SAT 98
[2024-11-28 04:16] VITALS: BP 150/93; PULSE 88; RESP 19; O2SAT 98
== END 2024-11-28 04:18 | disposition home or self-care (01) ==
LOC: ANHED 04:10
PROVIDERS: Emergency Provider Emergency Medicine; PCP Nurse Practitioner
DX: S46.811A Strain of other muscles, fascia and tendons at shoulder and upper arm level, right arm, initial encounter (principal); M54.2 Cervicalgia; J45.909 Unspecified asthma, uncomplicated; X58.XXXA Exposure to other specified factors, initial encounter
CPT/HCPCS: 96372; 99284; A9270; J1885; J3360

== ENCOUNTER 2025-03-02 01:51 | Day surgery (SDC) | payer BC, SELFPAY ==
[2025-02-13 14:04] VITALS: BMI 23.8
--- OUTSIDE RECORDS SUMMARY | 2025-03-02 01:54 | XMS_ITS | Encounter Summary ---
Author Organization [facility] Address [address] [place] [address] Care Team Providers Care Audit Senior Associate Name Role Phone Elise Pemberton INSURANCE CLAIMS SUPERVISOR Primary Care Provider [phone] Elise Pemberton INSURANCE CLAIMS SUPERVISOR Primary Care Provider +[phone] Encounter Details Date Type Department Care Team (Late st Contact Info) Description 01/31/2023 MyChart Message Enc [facility] Medical Group - 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 Not on file Not on file documented as of this encounter Plan of Treatment Not on file documented as of this encounter Visit Diagnoses Not on filedocumented in this encounter Additional Health Concerns Assessment Noted Time PHQ-9 Depression Total Score: 0 09/05/19 23 4:02 PM FORENSIC PSYCHIATRIST documented as of this encounter Care Teams Audit Senior Associate Relationship Specialty Start Date End Date Elise Pemberton NP [address] [place] [address] PCP - General NURSE PRACTITIONER 09/23/24 Elise Pemberton NP [address] [place] [address] PCP - General NURSE PRACTITIONER 09/21/24 09/22/24 documented as of this encounter
--- OUTSIDE RECORDS SUMMARY | 2025-03-02 01:54 | XMS_ITS | Encounter Summary ---
Author Organization [facility] Address [address] [place] [address] Care Team Providers Care Manager Bakery Name Role Phone Elise Pemberton NEWS INTERN Primary Care Provider [phone] Encounter Details Date Type Department Care Team (Late st Contact Info) Description 09/30/2024 DCWaferst Message Enc [facility] Medical Group Family Medicine - [place] [address] [facility] [address] [place] [phone] Elise Pemberton, JABIER [address] [place] [address] Gastro followup Social History Tobacco Use Types [...] Sex Assigned at Female 09/23/2024 8:11 AM MERCHANDISE PLANNER Legal Sex Female 8:25 PM CDT Gender Identity Female 09/23/2024 8:11 AM MERCHANDISE PLANNER Sexual Orientation Straight 09/23/2024 8: 11 AM MERCHANDISE PLANNER 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
--- OUTSIDE RECORDS SUMMARY | 2025-03-02 01:54 | XMS_ITS | Encounter Summary ---
Author Organization [facility] Address [facility] [place] [address] Care Team Providers Care Plastics Process Hand Name Role Phone Abigail Houston MD Primary Care Provider [phone] Fe Wright APRN Primary Care Provider +[phone]- [phone] Elise Pemberton NP Primary Care Provider +1 -[phone] Elise Pemberton EAR SPECIALIST Primary Care Provider +1 -[phone] Encounter Details Date Type Department Care Team (Late st Contact Info) Description 09/05/2020 Guardiumt Message Enc [facility] Medical Group Family & Internal Medicine [facility] [address] [place] [address] Germaine Cristina FNP [address] [id number] RE: Test Results Social History Tobacco Use [...] Sex Assigned at Female 09/23/2024 8:11 AM DEFENCE FORCE SENIOR OFFICER Legal Sex Female 8:25 PM CDT Gender Identity Female 09/23/2024 8:11 AM DEFENCE FORCE SENIOR OFFICER Sexual Orientation Straight 09/23/2024 8: 11 AM DEFENCE FORCE SENIOR OFFICER 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 No / Unsure 08/23/2020 12:21 PM DEFENCE FORCE SENIOR OFFICER documented as of this encounter Plan of Treatment Not on file documented as of this encounter Visit Diagnoses Not on filedocumented in this encounter Additional Health Concerns Infection Onset Date Last Indicated Resolved Time COVID-19 Rule Out 08/02/2022 08/02/2022 08/02/2022 9:50 AM DEFENCE FORCE SENIOR OFFICER COVID-19 Confirmed 08/02/2022 08/02/2022 12:32 AM DEFENCE FORCE SENIOR OFFICER Assessment Noted Time PHQ-9 Depression Total Score: 0 12/19/19 19 3:40 PM CDT documented as of this encounter Care Teams Plastics Process Hand Relationship Specialty Start Date End Date Abigail Houston MD PCP - General INTERNAL MEDICINE 08/19/18 12/03/22 Fe Wright APRN [address] [address] PCP - General NURSE PRACTITIONER 12/04/22 01/23/23 Elise Pemberton NP [address] [place] [address] PCP - General NURSE PRACTITIONER 09/23/24 Elise Pemberton NP [address] [place] [address] PCP - General NURSE PRACTITIONER 09/21/24 09/22/24 documented as of this encounter
--- OUTSIDE RECORDS SUMMARY | 2025-03-02 01:54 | XMS_ITS | Encounter Summary ---
Author Organization [facility] Address [facility] [place] [address] Care Team Providers Care Procurement Technician Name Role Phone Abigail Houston MD Primary Care Provider [phone] Fe Wright APRN Primary Care Provider + [phone] Elise Pemberton NP Primary Care Provider +[phone] Elise Pemberton SUPERINTENDENT PRODUCTION Primary Care Provider +1 -[phone] Encounter Details Date Type Department Care Team (Late st Contact Info) Description 12/10/2021 maufaitt Message Enc [facility] Medical Group Family & Internal Medicine [facility] [address] [place] [address] Abigail Houston [place] [id number] [place] [address] [id number] control refill Social History Tobacco Use Types [...] Sex Assigned at Female 09/23/2024 8:11 AM CORRUGATOR Legal Sex Female 8:25 PM CDT Gender Identity Female 09/23/2024 8:11 AM CORRUGATOR Sexual Orientation Straight 09/23/2024 8: 11 AM CORRUGATOR 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 Not on file Not on file documented as of this encounter Plan of Treatment Not on file documented as of this encounter Visit Diagnoses Not on filedocumented in this encounter Additional Health Concerns Infection Onset Date Last Indicated Resolved Time COVID-19 Rule Out 08/02/2022 08/02/2022 08/02/2022 9:50 AM CORRUGATOR COVID-19 Confirmed 08/02/2022 08/02/2022 12:32 AM CORRUGATOR Assessment Noted Time PHQ-9 Depression Total Score: 0 12/19/19 19 3:40 PM CDT documented as of this encounter Care Teams Procurement Technician Relationship Specialty Start Date End Date Abigail Houston MD PCP - General INTERNAL MEDICINE 08/19/18 12/03/22 Fe Wright APRN [address] [address] PCP - General NURSE PRACTITIONER 12/04/22 01/23/23 Elise Pemberton NP [address] [place] [address] PCP - General NURSE PRACTITIONER 09/23/24 Elise Pemberton NP [address] [place] [address] PCP - General NURSE PRACTITIONER 09/21/24 09/22/24 documented as of this encounter
--- OUTSIDE RECORDS SUMMARY | 2025-03-02 01:54 | XMS_ITS | Encounter Summary ---
Author Organization [facility] Address [address] [place] [address] Care Team Providers Care Punching Machine Operator Name Role Phone Abigail Houston MD Primary Care Provider [phone] Fe Wright APRN Primary Care Provider +[phone] Elise Pemberton NP Primary Care Provider +[phone] Elise Pemberton NP Primary Care Provider +1 [phone] Encounter Details Date Type Department Care Team (Late st Contact Info) Description 12/10/2021 Repros Therapeuticst Message Enc [facility] Medical Group Family & Internal Medicine [address] [address] Kaylen Billings NP Control Refill [...] Sex Assigned at Female 09/23/2024 8:11 AM ROD FINISHER Legal Sex Female 8:25 PM CDT Gender Identity Female 09/23/2024 8:11 AM ROD FINISHER Sexual Orientation Straight 09/23/2024 8: 11 AM ROD FINISHER 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 Not on file Not on file documented as of this encounter Plan of Treatment Not on file documented as of this encounter Visit Diagnoses Not on filedocumented in this encounter Additional Health Concerns Infection Onset Date Last Indicated Resolved Time COVID-19 Rule Out 08/02/2022 08/02/2022 08/02/2022 9:50 AM ROD FINISHER COVID-19 Confirmed 08/02/2022 08/02/2022 12:32 AM ROD FINISHER Assessment Noted Time PHQ-9 Depression Total Score: 0 12/19/19 3:40 PM CDT documented as of this encounter Care Teams Punching Machine Operator Relationship Specialty Start Date End Date Abigail Houston MD PCP - General INTERNAL MEDICINE 08/19/18 12/03/22 Fe Wright APRN [address] [address] PCP - General NURSE PRACTITIONER 12/04/22 01/23/23 Elise Pemberton NP [address] [place] [address] PCP - General NURSE PRACTITIONER 09/23/24 Elise Pemberton NP [address] [place] [address] PCP - General NURSE PRACTITIONER 09/21/24 09/22/24 documented as of this encounter
--- OUTSIDE RECORDS SUMMARY | 2025-03-02 01:54 | XMS_ITS | Encounter Summary ---
Author Organization [facility] Address [facility] [place] [address] Care Team Providers Care Human Geography Instructor Name Role Phone Abigail Houston MD Primary Care Provider [phone] Fe Wright APRN Primary Care Provider + [phone] Elise Pemberton NP Primary Care Provider +1 [phone] Elise Pemberton BIOINFORMATICS SUPPORT SPECIALIST Primary Care Provider +1 [phone] Encounter Details Date Type Department Care Team (Late st Contact Info) Description 08/07/2022 Mimosat Message Enc [facility] Medical Group Family & Internal Medicine [facility] [address] [place] [address] Abigail Houston [place] [address] [place] [address] [phone] Paxlovid Social History Tobacco Use Types Packs/Day [...] Sex Assigned at Female 09/23/2024 8:11 AM STEEL MELTER Legal Sex Female 8:25 PM CDT Gender Identity Female 09/23/2024 8:11 AM STEEL MELTER Sexual Orientation Straight 09/23/2024 8: 11 AM STEEL MELTER 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 Yes 08/02/2022 9:15 AM STEEL MELTER documented as of this encounter Plan of Treatment Not on file documented as of this encounter Visit Diagnoses Not on filedocumented in this encounter Additional Health Concerns Infection Onset Date Last Indicated Resolved Time COVID-19 Confirmed 08/02/2022 08/02/2022 12:32 AM STEEL MELTER Assessment Noted Time PHQ-9 Depression Total Score: 0 01/25/20 8:02 AM CDT documented as of this encounter Care Teams Human Geography Instructor Relationship Specialty Start Date End Date Abigail Houston MD PCP - General INTERNAL MEDICINE 08/19/18 12/03/22 Fe Wright APRN [address] [facility] [address] [place] [address] PCP - General NURSE PRACTITIONER 12/04/22 01/23/23 Elise Pemberton NP [address] [place], [place] [address] PCP - General NURSE PRACTITIONER 09/23/24 Elise Pemberton NP [address] [place] [address] PCP - General NURSE PRACTITIONER 09/21/24 09/22/24 documented as of this encounter
--- OUTSIDE RECORDS SUMMARY | 2025-03-02 01:54 | XMS_ITS | Encounter Summary ---
Author Organization [facility] Address [address] [place] [address] Care Team Providers Care Rural Carrier Associate Name Role Phone Abigail Houston MD Primary Care Provider Fe Wright APRN Primary Care Provider [phone]- [phone] Elise Pemberton NP Primary Care Provider +1 [phone] Elise Pemberton IN STORE BANKER Primary Care Provider +1 [phone] Encounter Details Date Type Department Care Team (Late st Contact Info) Description 11/29/2015 Abstract [facility] CONVERSION [address] [place] [address] , Generic ConversionMD Social History Tobacco Use Types Packs/Day Years Used Date Smoking Tobacco: Never Assessed Comments Unknown Sex and Gender Information Value Date Recorded Sex Assigned at Female 09/23/2024 8:11 AM DIRECTOR TRANSLATIONAL Legal Sex Female 8:25 PM CDT Gender Identity Female 09/23/2024 8:11 AM DIRECTOR TRANSLATIONAL Sexual Orientation Straight 09/23/2024 8: 11 AM DIRECTOR TRANSLATIONAL documented as of this encounter Plan of Treatment Not on file documented as of this encounter Visit Diagnoses Not on filedocumented in this encounter Additional Health Concerns Infection Onset Date Last Indicated Resolved Time COVID-19 Rule Out 08/02/2022 08/02/2022 08/02/2022 9:50 AM DIRECTOR TRANSLATIONAL COVID-19 Confirmed 08/02/2022 08/02/2022 12:32 AM DIRECTOR TRANSLATIONAL documented as of this encounter Care Teams Rural Carrier Associate Relationship Specialty Start Date End Date Abigail Houston MD PCP - General INTERNAL MEDICINE 08/19/18 12/03/22 Fe Wright APRN [address] [facility] [address] [place] [address] PCP - General NURSE PRACTITIONER 12/04/22 01/23/23 Elise Pemberton NP [address] [place], [place] [address] PCP - General NURSE PRACTITIONER 09/23/24 Elise Pemberton NP [address] [place], [place] [address] PCP - General NURSE PRACTITIONER 09/21/24 09/22/24 documented as of this encounter
--- OUTSIDE RECORDS SUMMARY | 2025-03-02 01:54 | XMS_ITS | Encounter Summary ---
Author Organization [facility] Address [address] [place] [address] Care Team Providers Care Tobacco Blender Name Role Phone Elise Pemberton DARKLIGHT INSPECTOR Primary Care Provider +[phone] Encounter Details Date Type Department Care Team (Late st Contact Info) Description 09/23/2024 Celles Message Enc [facility] Medical Group Family Medicine - [place] [address] [facility] [address] [place] [phone] Elise Pemberton, JABIER [address] [place] [address] Medication refill Social History Tobacco Use Types [...] Sex Assigned at Female 09/23/2024 8:11 AM LINUX ADMINISTRATOR Legal Sex Female 8:25 PM CDT Gender Identity Female 09/23/2024 8:11 AM LINUX ADMINISTRATOR Sexual Orientation Straight 09/23/2024 8: 11 AM LINUX ADMINISTRATOR 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
--- OUTSIDE RECORDS SUMMARY | 2025-03-02 01:54 | XMS_ITS | Referral Summary ---
Author Organization [facility] [address] Address [address] [place] [address] Care Team Providers Care Patient Svcs Mgr Name Role Phone Nicolette Mcduffie Primary Care Provider [phone] Allergies Active Allergy Reactions Criticality Noted Date Comments Amoxicillin-Pot Clavulanate Rash Medium 03/28/20 23 Medications albuterol (PROAIR RESPICLICK) 90 mcg/actuation inhaler Inhale 2 puffs as needed for wheezing Active rizatriptan HOUSEHOLD APPLIANCES SALESPERSON (MAXALT-HOUSEHOLD APPLIANCES SALESPERSON) 5 mg disintegrating tabletIndications:M igraine Take 1 [...] 2:49 PM CDT Height 157.5 cm (5' 2) 03/10/2024 2:49 PM CDT Body Mass Index 23.05 03/10/2024 2:49 PM CDT Plan of Treatment Not on file Insurance [employer] [facility] Address: [address] [place] [address] [employer] Care Teams Patient Svcs Mgr Relationship Specialty [place] [address] [facility] [address] [place] [id number] PCP - General Physician Allergist/Pediatric Pulmonologist 09/20/23
--- OUTSIDE RECORDS SUMMARY | 2025-03-02 01:54 | XMS_ITS | Encounter Summary ---
Author Organization [facility] Address [address] [place] [address] Care Team Providers Care Rn Family Practice Name Role Phone Abigail Houston MD Primary Care Provider [phone] Fe Wright APRN Primary Care Provider [phone] Elise Pemberton NP Primary Care Provider +1 [phone] Elise Pemberton NP Primary Care Provider [phone] [phone] Encounter Details Date Type Department Care Team (Late st Contact Info) Description 03/25/2022 RollSalet Message Enc [facility] Medical Group Family & Internal Medicine [address] [address] Kaylen Billings, JABIER UTI Social [...] Sex Assigned at Female 09/23/2024 8:11 AM RETAIL COMMISSION SALES ASSOCIATE Legal Sex Female 8:25 PM CDT Gender Identity Female 09/23/2024 8:11 AM RETAIL COMMISSION SALES ASSOCIATE Sexual Orientation Straight 09/23/2024 8: 11 AM RETAIL COMMISSION SALES ASSOCIATE 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 on file Not on file Not on file documented as of this encounter Plan of Treatment Not on file documented as of this encounter Visit Diagnoses Not on filedocumented in this encounter Additional Health Concerns Infection Onset Date Last Indicated Resolved Time COVID-19 Rule Out 08/02/2022 08/02/2022 08/02/2022 9:50 AM RETAIL COMMISSION SALES ASSOCIATE COVID-19 Confirmed 08/02/2022 08/02/2022 12:32 AM RETAIL COMMISSION SALES ASSOCIATE Assessment Noted Time PHQ-9 Depression Total Score: 0 01/25/20 8:02 AM CDT documented as of this encounter Care Teams Rn Family Practice Relationship Specialty Start Date End Date Abigail Houston MD PCP - General INTERNAL MEDICINE 08/19/18 12/03/22 Fe Wright APRN [address] [address] PCP - General NURSE PRACTITIONER 12/04/22 01/23/23 Elise Pemberton NP [address] [place] [address] PCP - General NURSE PRACTITIONER 09/23/24 Elise Pemberton NP [address] [place] [address] PCP - General NURSE PRACTITIONER 09/21/24 09/22/24 documented as of this encounter
--- OUTSIDE RECORDS SUMMARY | 2025-03-02 01:54 | XMS_ITS | Encounter Summary ---
Author Organization [facility] Address [address] [place] [address] Care Team Providers Care Publisher Assistant Name Role Phone Fe Wright APRN Primary Care Provider +1- [phone] Elise Pemberton CHECK WRITER Primary Care Provider +1 -[phone] Elise Pemberton CHECK WRITER Primary Care Provider +1 -[phone] Encounter Details Date Type Department Care Team (Late st Contact Info) Description 12/05/2022 ChoiceMap Message Enc [facility] Medical Group Family & Internal Medicine [address] [address] 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 Not on file Not on file documented as of this encounter Plan of Treatment Not on file documented as of this encounter Visit Diagnoses Not on filedocumented in this encounter Additional Health Concerns Assessment Noted Time PHQ-9 Depression Total Score: 0 09/05/19 4:02 PM RN TELEPHONE TRIAGE documented as of this encounter Care Teams Publisher Assistant Relationship Specialty Start Date End Date Fe Wright APRN [address] [facility] [address] [place] [address] PCP - General NURSE PRACTITIONER 12/04/22 01/23/23 Elise Pemberton NP [address] [place] [address] PCP - General NURSE PRACTITIONER 09/23/24 Elise Pemberton NP [address] [place] [address] PCP - General NURSE PRACTITIONER 09/21/24 09/22/24 documented as of this encounter
--- OUTSIDE RECORDS SUMMARY | 2025-03-02 01:54 | XMS_ITS | Clinical Summary ---
Author Organization [facility] [address] Address [address] [place] [address] Care Team Providers Care Electronics Processing Supervisor Name Role Phone Nicolette Mcduffie Primary Care Provider [phone] Allergies Active Allergy Reactions Criticality Noted Date Comments Amoxicillin-Pot Clavulanate Rash Medium 03/28/20 23 Medications albuterol (PROAIR RESPICLICK) 90 mcg/actuation inhaler Inhale 2 puffs as needed for wheezing Active rizatriptan PHILOSOPHY AND RELIGION INSTRUCTOR (MAXALT-PHILOSOPHY AND RELIGION INSTRUCTOR) 5 mg disintegrating tabletIndications:M igraine Take [...] <65 (1 of 2 - PCV) 2006 HPV Vaccines (1 - 3-dose SCDM series) 2014 Cervical Cancer Screening 01/24/2023 01/24/2022 Influenza Vaccine (#1) 2025 05/23/2018, 2015 DTaP/Tdap/Td Vaccine (3 - Td or Tdap) 01/25/2033, 10/26/2012 Insurance langtaojin ACCESS OOS Care Teams Electronics Processing Supervisor Relationship Specialty [place] [address] [facility] [address] [place] [address] PCP - General Physician Instructional Writer 09/20/23
--- OUTSIDE RECORDS SUMMARY | 2025-03-02 01:54 | XMS_ITS | Encounter Summary ---
Author Organization [facility] Address [address] [place] [address] Care Team Providers Care Hand Folder Name Role Phone Elise Pemberton TECHNICAL SYSTEM ANALYST Primary Care Provider [phone] Elise Pemberton TECHNICAL SYSTEM ANALYST Primary Care Provider +1 [phone] Encounter Details Date Type Department Care Team (Late st Contact Info) Description 01/30/2023 BioPharmXt Message Enc [facility] Medical Group Family & Internal Medicine [facility] [address] [place] [address] Nicolette Mcduffie PAFinn [address] 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
--- OUTSIDE RECORDS SUMMARY | 2025-03-02 01:54 | XMS_ITS | Encounter Summary ---
Author Organization [facility] Address [facility] [place] [address] Care Team Providers Care Manager Salt Name Role Phone Abigail Houston MD Primary Care Provider [phone] Fe Wright APRN Primary Care Provider + [phone] Elise Pemberton NP Primary Care Provider +1 [phone] Elise Pemberton ENGINEERING SPECIALIST TECHNICIAN Primary Care Provider +1 [phone] Encounter Details Date Type Department Care Team (Late st Contact Info) Description 07/11/2022 Nisticat Message Enc 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 No / Unsure 07/12/2022 7:05 AM CARDIAC CATH LAB RADIOLOGY TECHNOLOGIST documented as of this encounter Plan of Treatment Not on file documented as of this encounter Visit Diagnoses Not on filedocumented in this encounter Additional Health Concerns Infection Onset Date Last Indicated Resolved Time COVID-19 Rule Out 08/02/2022 08/02/2022 08/02/2022 9:50 AM CARDIAC CATH LAB RADIOLOGY TECHNOLOGIST COVID-19 Confirmed 08/02/2022 08/02/2022 12:32 AM CARDIAC CATH LAB RADIOLOGY TECHNOLOGIST Assessment Noted Time PHQ-9 Depression Total Score: 0 01/25/20 22 8:02 AM CDT documented as of this encounter Care Teams Manager Salt Relationship Specialty Start Date End Date Abigail Houston MD PCP - General INTERNAL MEDICINE 08/19/18 12/03/22 Fe Wright APRN [address] [address] PCP - General NURSE PRACTITIONER 12/04/22 01/23/23 Elise Pemberton NP [address] [place] [address] PCP - General NURSE PRACTITIONER 09/23/24 Elise Pemberton NP [address] [place] [address] PCP - General NURSE PRACTITIONER 09/21/24 09/22/24 documented as of this encounter
--- OUTSIDE RECORDS SUMMARY | 2025-03-02 01:54 | XMS_ITS | Clinical Summary ---
Author Organization [facility] Address [facility] [place] [address] Care Team Providers Care Tooth Cutter Pinion Name Role Phone Elise Pemberton HEALTH UNDERWRITER Primary Care Provider [phone] Allergies Active Allergy Reactions Criticality Noted Date [...] 09/23/2024 Assessment & Plan (09/23/2024 4:41 PM TEST DIRECTOR): Patient denies any tenderness on exam but [...] 11/08/2015 Assessment & Plan (09/23/2024 4:33 PM TEST DIRECTOR): Chronic condition. Controlled. No changes needed this time. Mild intermittent asthma (HHS/HCC) 04/14/2014 Assessment & Plan (09/23/2024 4:39 PM TEST DIRECTOR): Chronic condition. Controlled. Stable with use of [...] 09/23/2024 Assessment & Plan (09/09/2018 4:17 PM TEST DIRECTOR): Given severity of symptoms and preceding URI symptoms that resolved then suddenly worsened will treat for strep. Although did rec waiting 24-48 hours to see if any improvement off abx Candidiasis, vagina 12/11/2017 09/23/19 25 Encounters Date Type Department Care Team Description 12/10/2024 MyChart Message Enc [facility] Family Medicine - Marco Antonio Sarah42 [facility] [address] [place] [address] Elise Pemberton, HEALTH UNDERWRITER Diverticulitis flare up from Last 3 Months Immunizations Immunization Administration [...] Sex Assigned at Female 09/23/2024 8:11 AM TEST DIRECTOR Legal Sex Female 8:25 PM CDT Gender Identity Female 09/23/2024 8:11 AM TEST DIRECTOR Sexual Orientation Straight 09/23/2024 8: 11 AM TEST DIRECTOR 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 Not on file Not on file Last Filed Vital Signs Vital Sign Reading Time Taken Comments Blood Pressure 128/82 09/23/2024 12:36 PM TEST DIRECTOR Pulse 78 09/23/2024 12:36 PM TEST DIRECTOR Temperature 36.6 C (97.8 F) 09/23/2024 12:36 PM TEST DIRECTOR Respiratory Rate 16 09/23/2024 12:36 PM TEST DIRECTOR Oxygen Saturation 99% 09/23/2024 12:36 PM TEST DIRECTOR Inhaled Oxygen Concentration - - Weight 60.8 kg (134 lb) 09/23/2024 12:36 PM TEST DIRECTOR Height 157.5 cm (5' 2) 09/23/2024 12:36 PM TEST DIRECTOR Body Mass Index 24.51 09/23/2024 12:36 PM TEST DIRECTOR Plan of Treatment Health Maintenance Due Date Last Done Comments Hepatitis C 2005 Hepatitis B Vaccines (1 of 3 - 19+ 3-dose series) 2006 Pneumococcal Vaccine: Pediatrics (0 to 5 Years) and At-Risk Patients (6 to 49 Years) (1 of 2 - PCV) 2006 HPV Vaccines (1 - 3-dose SCDM series) 2014 Cervical Cancer Screening Pap with HPV Testing (Age 30 to 64) Every 5 Years 2017 COVID-19 Vaccine ( - 2023-25 season) 2024 Cervical Cancer Screening Pap Smear (Age 30 to 64) Every 3 Years 01/24/2025 01/24/2022, 08/21/2018 Cervical Cancer Screening with HPV 01/24/2025 Annual Physical 09/23/2025 09/23/2024, 01/05, 01/19/2021, Additional history exists DTaP, Tdap and Td Vaccines (2 - Td or Tdap) 01/25/2033 01/25/2023, 10/26/2012, 10/26/2012 PHQ-2 ([facility]) Completed 09/23/2024 Meningococcal B Vaccine Aged Out No l [...] 01/24/2022 9:03 AM CDT Visit for routine food analyst exam from Last 3 Months or Most Recently Relevant to Health Maintenance Results * Cytopath Cerv/Vag Thin Layer (01/24/2022 9:03 AM CDT) CLINICAL INFORMATION: Information not provided [employer] [facility] Clinical Information: UNKNOWN [employer] [facility] Date of Last Pap INFORMATION NOT PROVIDED [employer] [facility] Previous Biopsy? INFORMATION NOT PROVIDED [facility] [employer] [facility] SOURCE (QST) Cervix, Endocervix [facility] [employer] [facility] STATEMENT OF ADEQUACY: [employer] [facility] Comment: Satisfactory for evaluation. Endocervical/transformation zone component present. Age and/or menstrual status not provided PAP INTERPRETATION/RESU LTS Negative for intraepithelial lesion or malignancy. [facility] ACCOUNT FINANCIAL MANAGER [facility] Comment: CARLIE SUAZO(ASCP) CT Screening location: [place] [address] Administration K[place] [address] COMMENT: [facility] Comment: EXPLANATORY NOTE: The Pap is a [...] [place] MD PATHOLOGY/CYTOLOGY ORDERABLE S Final Result [facility] ORDERS [place] [address] Administration [place] [phone] from Last 3 Months or Most Recently Relevant to Health Maintenance Insurance [facility] Care Teams Tooth Cutter Pinion Relationship Specialty Start Date End Date Elise Pemberton NP [address] [place] [address] PCP - General NURSE PRACTITIONER 09/23/24
[2025-03-02 09:53] VITALS: BP 109/73; PULSE 97; RESP 16; TEMP 36.7; O2SAT 100; BMI 24.0
[2025-03-02 10:08] LABS: BEDSIDEPREGUCG Negative (Negative)
[2025-03-02] MEDS: LACTATED RINGERS 1,000 ML 150 ML IV CONT (10:18)
--- NOTE | 2025-03-02 10:26 | P.PNAN_ITS ---
Anes - Initial Pre Proc Eval Procedure: Operation Date: 03/02/25 11:00 Proposed Procedures p Colonoscopy - Aleksandr Borges MD Date/Time: 03/02/25 10:26 Surgeon: Aleksandr Borges MD Pre Op Diagnosis: Diverticulitis of intestine, part unspecified, wit Patient Data Age: 39 Gender: F Height: 1.57 m Weight: 59.6 kg Last Vital Signs Temp 36.7 C 03/02/25 09:53 Pulse 97 03/02/25 09:53 Resp 16 03/02/25 09:53 BP 109/73 03/02/25 09:53 Pulse Ox 100 03/02/25 09:53 O2 Del Method Room Air 03/02/25 09:53 Allergies Allergy/AdvReac Type Severity Reaction Status Date / Time amoxicillin (From Augmentin) Allergy Rash Verified 03/02/25 09:59 clavulanic acid (From Allergy Rash Verified 03/02/25 09:59 Augmentin) Home Medications ?Medication ?Instructions ?Recorded ?Confirmed ?Type rizatriptan 5 mg tablet 5 mg PO PRN PRN Migraine Headache 06/18/19 02/13/25 History albuterol sulfate 90 mcg/actuation 1 inh inhalation Q4-6H PRN 09/30/24 02/13/25 History breath activated powder shortness of breath or wheezing inhaler,sensor vit no.95-ferrous 1 tablet PO DAILY 11/18/24 03/02/25 History fumarate 28 mg-folic acid 800 mcg tablet ( Multivitamins) acetaminophen 500 mg tablet 1,000 mg (2 x 500 mg) PO TID PRN 11/28/24 02/13/25 Rx walt 7 days #42 tabs medroxyprogesterone 10 mg tablet 10 mg PO DAILY #1 tablet 02/19/25 03/02/25 Rx (Provera) Laboratory Tests 03/02/25 09:53 POC Urine HCG, Qual Negative (Negative) Patient hx anesthesia problems: none Family hx anesthesia problems: none Results Review: All pre-operative results and documents have been reviewed as part of the pre-operative evaluation. [facility] Past Medical History Medical History History of asthma LLQ pain Anxiety Migraine Surgical History Surgical History History of inguinal hernia repair, bilateral History of wisdom tooth extraction No history of previous surgery Social History Social History Smoking status: Never smoker Alcohol intake: never Alcohol use details: Social Substance use: never Substance use type: does not use Living arrangements: with family Gender identity (if verbalized by the patient): Female Anes - Eval Final PreProcedure Day of Procedure 03/02/25 10:26 Patient weight: normal Heart: regular rate and rhythm Lungs: clear to auscultation Airway: Mallampati scale class 1 Neurological: alert and oriented Last oral intake: >/= 8 hours ASA classification: II Emergent: no Anesthetic plan: proceed Anesthesia type and monitoring: general GIVS and standard monitoring Results Review: All pre-operative results and documents have been reviewed as part of the pre- operative evaluation. Informed Consent: The patient's anesthetic plan and its attendant risks and benefits were discussed with the patient/family/POA. Questions were solicited and answers provided to the satisfaction of the patient/family/POA.
--- NOTE | 2025-03-02 10:54 | PM.HPGS ---
History of Present Illness History of Present Illness Consent: Risks, benefits, and alternatives have been discussed and questions answered. Patient agrees to proceed with procedure. Chief complaint: Diverticulitis of intestine, part unspecified, wit Narrative: Christelle Aviles is a 39 year old female here for first colonoscopy, had diverticulitis currently doing well Review of Systems Review of Systems: All systems reviewed & are unremarkable except as noted in HPI and below PMFSH Past Medical History Medical History (Updated 03/02/25 @ 10:54 by Aleksandr Borges MD) History of diverticulitis of colon History of asthma LLQ pain Anxiety Migraine Surgical History Surgical History History of inguinal hernia repair, bilateral History of wisdom tooth extraction No history of previous surgery Social History Social History Smoking status: Never smoker Alcohol intake: never Alcohol use details: Social Substance use: never Substance use type: does not use Living arrangements: with family Gender identity (if verbalized by the patient): Female Meds Home Medications and Allergies Home Medications ?Medication ?Instructions ?Recorded ?Confirmed ?Type rizatriptan 5 mg tablet 5 mg PO PRN PRN Migraine Headache 06/18/19 02/13/25 History albuterol sulfate 90 mcg/actuation 1 inh inhalation Q4-6H PRN 09/30/24 02/13/25 History breath activated powder shortness of breath or wheezing inhaler,sensor vit no.95-ferrous 1 tablet PO DAILY 11/18/24 03/02/25 History fumarate 28 mg-folic acid 800 mcg tablet ( Multivitamins) acetaminophen 500 mg tablet 1,000 mg (2 x 500 mg) PO TID PRN 11/28/24 02/13/25 Rx walt 7 days #42 tabs medroxyprogesterone 10 mg tablet 10 mg PO DAILY #1 tablet 02/19/25 03/02/25 Rx (Provera) Allergies Allergy/AdvReac Type Severity Reaction Status Date / Time amoxicillin (From Augmentin) Allergy Rash Verified 03/02/25 09:59 clavulanic acid (From Allergy Rash Verified 03/02/25 09:59 Augmentin) Vital Signs Vital Signs - 24 hr 07/28/25 09:53 Temperature 98.0 F Pulse Rate 97 Respiratory Rate 16 Blood Pressure 109/73 Pulse Oximetry 100 Oxygen Delivery Room Air Exam Const: General: comfortable and no acute distress HENMT: Face/Nose/Sinus: Normal nares present Eyes: General: appearance normal, both eyes and all related structures Neck: Neck: no JVD Resp: Auscultation: clear to auscultation bilaterally Cardio: Rate: regular rate Rhythm: regular rhythm GI: Inspection: non-distended GI Palp: Yes Soft to palpation Skin: General skin exam: normal color Neuro: General: gait normal Speech: normal speech Extrem: General: normal to inspection Psych: Mental Status: mental status grossly normal Assessment and Plan Assessment and plan (1) History of diverticulitis of colon: Code(s): Z87.19 - Personal history of other diseases of the digestive system Status: Acute Assessment and Plan: colonoscopy
[2025-03-02 11:06] VITALS: BP 82/47; PULSE 79; RESP 17; O2SAT 100
[2025-03-02 11:16] VITALS: BP 84/52; PULSE 82; RESP 17; O2SAT 97
[2025-03-02 11:26] VITALS: BP 95/61; PULSE 66; RESP 20; O2SAT 100
== END 2025-03-02 11:35 | disposition home or self-care (01) ==
PROVIDERS: Anesthesiology; PCP Nurse Practitioner; Referring Provider Nurse Practitioner Family; Visit Provider Internal Medicine Gastroenterology
PROC: 0DJD8ZZ Inspection of Lower Intestinal Tract, Via Natural or Artificial Opening Endoscopic (ICD-10-PCS; CPT 45378; principal; 2025-03-02 11:00)
DX: K57.30 Diverticulosis of large intestine without perforation or abscess without bleeding (principal); J45.909 Unspecified asthma, uncomplicated; F41.9 Anxiety disorder, unspecified; Z98.890 Other specified postprocedural states; Z79.51 Long term (current) use of inhaled steroids; Z87.19 Personal history of other diseases of the digestive system
CPT/HCPCS: 45378; J2003; J2704; J7120